=== PATIENT | female | born 1945 | race Caucasian/White ===

== ENCOUNTER 2025-04-04 21:16 | Inpatient (IN) | payer MEDICARE, SELFPAY ==
--- OUTSIDE RECORDS SUMMARY | 2023-12-06 04:45 | XMS_ITS ---
Author Organization [facility] Billing Info Address [address] [place] [id number] Care Team Providers Care Professional Organizer Name Role Phone Pa Yun Primary Care Provider UnavailMYA Jaime Unavailable [phone] JOVITA KIRK Unavailable Unavailable MARIUSZ MCMANUS Unavailable [phone] Allergies Allergen (clinical drug ingredient) Drug/Non Drug Allergy documented on EMR Reaction Allergy Type Onset Date Status soy (uncoded) Unknown Allergy Active aspirin Aspirin Unknown Drug Allergy Active ibuprofen Ibuprofen Unknown Drug Allergy Active acetaminophen Tylenol Unknown Drug Allergy Act luba REASON FOR VISIT H/P for hip injection Medications Medication SIG (Take, Route, Frequency, Duration) Notes Start Date End Date Status Trelegy Ellipta 100-62.5-25 MCG/INH 1 puff Inhalation As directed Active Vitamin D3 125 MCG (5000 UT) as directed Orally Active Albuterol Sulfate 4 MG TAKE 2 TABLETS BY MOUTH TWICE DAILY Oral for 10 Active Toy-24 300 MG TAKE 1 CAPSULE BY MO UTH EVERY DAY Oral for 30 Active Albuterol Sulfate HFA 108 (9 0 Base) MCG/ACT Inhalation for 25 Active Pantoprazole Sodium 40 MG TAKE 1 TABLET BY MOUTH EVERY DAY Oral for 90 Active Paroxetine HCl 30 MG TAKE 1 TABLET BY MO UTH EVERY DAY Oral for 90 Active Furosemide 40 MG TAKE 1 TABLET BY GAMA TH EVERY DAY Oral for 30 Active Metformin HCl 500 MG 1 tablet with a maciej l Oral Once a day for 90 days Active Prochlorperazine 10 MG 1 tablet as neede d Orally PRN 06/06/2022 Active Lisinopril 40 MG 1 tablet Oral Once a day for 90 days Active Atorvastatin Calcium 20 MG 1 tablet Oral ly Once a day Active Albuterol Sulfate (2.5 MG/3ML) 0.083% 3 mL as needed Inhalation every 6 hrs Active Fiber Therapy 500 MG 2 tablets with a fu ll glass of water as needed Orally Daily Active Trospium Chloride ER 60 MG 1 capsule in the morning on an empty stomach or 1 hour before a meal Orally Once a day Active Isosorbide Mononitrate ER 30 MG 1 tablet in the morning Orally Once a day for 90 day(s) 10/05/2022 Active Social History Tobacco Use: Social History Observation Description Date Details (start date - stop date) Former Smoker NA - NA Tobacco Status: Question Answer Notes Patient is a former smoker Vital Signs Height 65 in 12/06/2023 Weight 275.8 lbs 12/06/2023 BMI 45.89 kg/m2 12/06/2023 Encounters Encounter Location Date Provider Diagnosis [id number] [facility] [address] [place], [place] [id number] 12/06/2023 MARIUSZ MARIETTA Lumbar degenerative disc disease M51.36 and Arthritis of right hip M16.11 Assessments Encounter Date Diagnosis (ICD Code) Assessment Notes Treatment Notes Treatment Clinical Notes Section Notes 12/06/2023 Lumbar degenerative disc disease (ICD-10 - M51.36) I looked back at the patient's x-rays from November 15, 2023 in the office today of the hip and pelvis and it does capture the lower lumbar vertebrae and she has severe degenerative disc disease in the lower lumbar vertebrae. I believe she would benefit more from being treated with a low back injection. Apparently she was referred to a paint factory worker from her primary care physician but the patient did not maintain that appointment. I would advise her to see the paint factory worker for an injection and then we can talk if she is still having problems afterwards. 12/06/2023 Arthritis of right hip (ICD-10 - M16.11) Patient has arthritis in her right hip but I do not believe that that is the primary problem. Will see the low back specialist and then if she still has problems we can look at doing something for the hip Plan Of Treatment Treatment Notes Assessment Notes Lumbar degenerative disc disease I looke d back at the patient's x-rays from November 15, 2023 in the office today of the hip and pelvis and it does capture the lower lumbar vertebrae and she has severe degenerative disc disease in the lower lumbar vertebrae. I believe she would benefit more from being treated with a low back injection. Apparently she was referred to a paint factory worker from her primary care physician but the patient did not maintain that appointment. I would advise her to see the paint factory worker for an injection and then we can talk if she is still having problems afterwards. Arthritis of right hip Patient has arthr itis in her right hip but I do not believe that that is the primary problem. Will see the low back specialist and then if she still has problems we can look at doing something for the hip Next Appt Details Follow Up: prn, Reason: Progress Notes * LORRAINE HICKS LDOB:1945 ( 78 yo F)Acc No.[id number]:12/06/2023 PROGRESS NOTE Patient: LORRAINE KIRKLAND External Provider: Chelsey MCMANUS MD :1945 A ge:78 Y S ex:Female Date:12/06/2023 C #:[id number] Address:[address] [place], [place] [id number] Pcp:Pa Yun Subjective: * Chief Complaints: * H /P for hip injection * HPI: F irst Point of Contact Screening: Do any of the following apply to you? N ew rash or open sores N o F ever and/or chills in the past 7 days N o C ough N o M uscle or body aches (other than from an injury) N o S ore throat N o I n the past 3 weeks, have you or a close contact traveled outside the [facility] and you are now ill? N o p atsue is here for evaluation for possible hip injection in her right hip. She is having pain in her right flank area that radiates down her buttock all the way to her lower leg on the lateral side to her foot. She complains of numbness and tingling associated with this. She is in constant pain. * ROS: O RTHO: Constitutional: N egative for:, chills, fever, night sweats. C ardiovascular: N egative for:, chest pain, irregular heart rate, palpitations. R espiratory: N egative for:, cough, shortness of breath, wheezing. N eurologic: N egative for:, numbness, tingling. * Medical History: * Surgical History: C holecystectomy hysterectomy shoulder surgery - Left (spuurs) knee arthroscopy - Left (spurs) * Hospitalization/Major Diagno stic Procedure: N o Hospitalization History. * Family History: B rother(s): CROHNS, diagnosed with HTN, Heart Attack. M other: diagnosed with HTN, Lung CA. F ather: diagnosed with HTN, Colon CA. S ister(s): diagnosed with HTN, Lung CA, Heart Attack. * Social History: A lcohol Use Patient d oes not use alcohol T obacco Status Patient is a former smoker Quit in: 002 M arital Status: . * Medications: T akingIsosorbide Mononitrate ER 30 MG Tablet Extended Release 24 Hour 1 tablet in the morning Orally Once a day Albuterol Sulfate (2.5 MG/3ML) 0.083% Nebulization Solution 3 mL as needed Inhalation every 6 hrs Trospium Chloride ER 60 MG Capsule Extended Release 24 Hour 1 capsule in the morning on an empty stomach or 1 hour before a meal Orally Once a day Fiber Therapy 500 MG Tablet 2 tablets with a full glass of water as needed Orally Daily Atorvastatin Calcium 20 MG Tablet 1 tablet Orally Once a day Lisinopril 40 MG Tablet 1 tablet Oral Once a day Paroxetine HCl 30 MG Tablet TAKE 1 TABLET BY MOUTH EVERY DAY Oral Pantoprazole Sodium 40 MG Tablet Delayed Release TAKE 1 TABLET BY MOUTH EVERY DAY Oral Furosemide 40 MG Tablet TAKE 1 TABLET BY MOUTH EVERY DAY Oral Prochlorperazine 10 MG Tablet 1 tablet as needed Orally PRN Metformin HCl 500 MG Tablet 1 tablet with a meal Oral Once a day Toy-24 300 MG Capsule Extended Release 24 Hour TAKE 1 CAPSULE BY MOUTH EVERY DAY Oral Albuterol Sulfate 4 MG Tablet TAKE 2 TABLETS BY MOUTH TWICE DAILY Oral Albuterol Sulfate HFA 108 (90 Base) MCG/ACT Aerosol Solution Inhalation Trelegy Ellipta 100-62.5-25 MCG/INH Aerosol Powder Breath Activated 1 puff Inhalation As directed Vitamin D3 125 MCG (5000 UT) Capsule as directed Orally Medication List reviewed and reconciled with the patientTaking Isosorbide Mononitrate ER 30 MG Tablet Extended Release 24 Hour 1 tablet in the morning Orally Once a day Taking Albuterol Sulfate (2.5 MG/3ML) 0.083% Nebulization Solution 3 mL as needed Inhalation every 6 hrs Taking Trospium Chloride ER 60 MG Capsule Extended Release 24 Hour 1 capsule in the morning on an empty stomach or 1 hour before a meal Orally Once a day Taking Fiber Therapy 500 MG Tablet 2 tablets with a full glass of water as needed Orally Daily Taking Atorvastatin Calcium 20 MG Tablet 1 tablet Orally Once a day Taking Lisinopril 40 MG Tablet 1 tablet Oral Once a day Taking Paroxetine HCl 30 MG Tablet TAKE 1 TABLET BY MOUTH EVERY DAY Oral Taking Pantoprazole Sodium 40 MG Tablet Delayed Release TAKE 1 TABLET BY MOUTH EVERY DAY Oral Taking Furosemide 40 MG Tablet TAKE 1 TABLET BY MOUTH EVERY DAY Oral Taking Prochlorperazine 10 MG Tablet 1 tablet as needed Orally PRN Taking Metformin HCl 500 MG Tablet 1 tablet with a meal Oral Once a day Taking Toy-24 300 MG Capsule Extended Release 24 Hour TAKE 1 CAPSULE BY MOUTH EVERY DAY Oral Taking Albuterol Sulfate 4 MG Tablet TAKE 2 TABLETS BY MOUTH TWICE DAILY Oral Taking Albuterol Sulfate HFA 108 (90 Base) MCG/ACT Aerosol Solution Inhalation Taking Trelegy Ellipta 100-62.5-25 MCG/INH Aerosol Powder Breath Activated 1 puff Inhalation As directed Taking Vitamin D3 125 MCG (5000 UT) Capsule as directed Orally Medication List reviewed and reconciled with the patient * Allergies: A spirinIbuprofensoyTylenolno[Allergies Verified] Objective: * Vitals: H t: 65 in, Ht-cm: 165.1 cm, Wt: 275.8 lbs, Wt-k.1 kg, BMI:45.89, Weight Change: 0 lbs, Body Surface Area: 2.39. * Examination: G eneral Examination: General: No apparent distress, alert oriented x3 Right hip exam: Patient with equal leg lengths and no deformity. No malalignment. Patient with limited internal and external rotation to 10 degrees each but no pain in the groin with this maneuver. Moving the hip around recapitulate pain in the lateral side of her flank that radiates all the way down to her foot. Neurologically intact distally to light touch and motor with good capillary refill. Assessment: * Assessment: 1. L umbar degenerative disc disease - M51.36 (Primary) 2 . A rthritis of right hip - M16.11 Plan: * Treatment: 2. A rthritis of right hip Notes: Patient has arthritis in her right hip but I do not believe that that is the primary problem. Will see the low back specialist and then if she still has problems we can look at doing something for the hip * Procedure Codes: * Preventive Medicine: Quality Measures: F all Risk Assessment: Date of Screening Completed: 0 12/06/2023 Increased Fall Risk Factors: N o fall risk factors History Falls in Past Year: N o falls in the past year W eight Assessment Above Normal BMI Follow-Up L ifestyle education regarding diet * Follow Up: p rn * Care Plan Details* * Sign off status: Completed true * Provider: Chelsey MCMANUS MD Date: 0 12/06/2023 Generated for Janny redman/Yuri/Beka on: 06/05/2024 08:24 PM EST History and Physical Notes * HPI (History of Present Illness) Category Sub-Category Detail Notes Category Not es First Point of Contact Screening Do any of the following apply to you? New rash or open sores: No patient is here for evaluation for possible hip injection in her right hip. She is having pain in her right flank area that radiates down her buttock all the way to her lower leg on the lateral side to her foot. She complains of numbness and tingling associated with this. She is in constant pain. Fever and/or chills in the past 7 days: No Cough: No Muscle or body aches (other than from an injury): No Sore throat: No In the past 3 weeks, have yo u or a close contact traveled outside the [place] and you are now ill? : No Examination Category Sub-Category Detail Notes Category Not es General Examination General: No apparent distress, alert oriented x3 Right hip exam: Patient with equal leg lengths and no deformity. No malalignment. Patient with limited internal and external rotation to 10 degrees each but no pain in the groin with this maneuver. Moving the hip around recapitulate pain in the lateral side of her flank that radiates all the way down to her foot. Neurologically intact distally to light touch and motor with good capillary refill.
--- OUTSIDE RECORDS SUMMARY | 2024-02-14 05:15 | XMS_ITS ---
Author Organization [facility] Billing Info Address [address] [place] [address] Care Team Providers Care Camera Supervisor Name Role Phone Pa Yun Primary Care Provider UnavailMYA Jaime Unavailable [phone] JOVITA KIRK Unavailable Unavailable MARIUSZ MCMANUS Unavailable [phone] Allergies Allergen (clinical drug ingredient) Drug/Non Drug Allergy documented on EMR Reaction Allergy Type Onset Date Status soy (uncoded) Unknown Allergy Active aspirin Aspirin Unknown Drug Allergy Active ibuprofen Ibuprofen Unknown Drug Allergy Active acetaminophen Tylenol Unknown Drug Allergy Act luba REASON FOR VISIT Wants to discuss hip surgery Medications Medication SIG (Take, Route, Frequency, Duration) Notes Start Date End Date Status Trelegy Ellipta 100-62.5-25 MCG/INH 1 puff Inhalation As directed Active Vitamin D3 125 MCG (5000 UT) as directed Orally Active Albuterol Sulfate (2.5 MG/3ML) 0.083% 3 mL as needed Inhalation every 6 hrs Active Trospium Chloride ER 60 MG 1 capsule in the morning on an empty stomach or 1 hour before a meal Orally Once a day Active Isosorbide Mononitrate ER 30 MG 1 tablet in the morning Orally Once a day for 90 day(s) 10/05/2022 Active Albuterol Sulfate 4 MG TAKE 2 TABLETS BY MOUTH TWICE DAILY Oral for 10 Active Albuterol Sulfate HFA 108 (9 0 Base) MCG/ACT Inhalation for 25 Active Toy-24 300 MG TAKE 1 CAPSULE BY MO UTH EVERY DAY Oral for 30 Active Prochlorperazine 10 MG 1 tablet as neede d Orally PRN 06/06/2022 Active Metformin HCl 500 MG 1 tablet with a maciej l Oral Once a day for 90 days Active Lisinopril 40 MG 1 tablet Oral Once a day for 90 days Active Paroxetine HCl 30 MG TAKE 1 TABLET BY MO UTH EVERY DAY Oral for 90 Active Atorvastatin Calcium 20 MG 1 tablet Oral ly Once a day Active Pantoprazole Sodium 40 MG TAKE 1 TABLET BY MOUTH EVERY DAY Oral for 90 Active Furosemide 40 MG TAKE 1 TABLET BY GAMA TH EVERY DAY Oral for 30 Active Fiber Therapy 500 MG 2 tablets with a fu ll glass of water as needed Orally Daily Active Social History Tobacco Use: Social History Observation Description Date Details (start date - stop date) Former Smoker NA - NA Tobacco Status: Question Answer Notes Patient is a former smoker Vital Signs Height 65 in 02/14/2024 Weight 275.8 lbs 02/14/2024 BMI 45.89 kg/m2 02/14/2024 Encounters Encounter Location Date Provider Diagnosis [id number] [facility] [place] [address] [place] [address] [place], [place] [id number] 02/14/2024 MARIUSZ MCMANUS Bilateral hip joint arthritis M16.0 Assessments Encounter Date Diagnosis (ICD Code) Assessment Notes Treatment Notes Treatment Clinical Notes Section Notes 02/14/2024 Bilateral hip joint arthritis (ICD-10 - M16.0) I explained to the patient that I do not think that the majority of her symptoms are coming from her hips. She is also oxygen dependent as a COPD patient. If we were to do hip replacement surgery, she would be at a high risk having an issue with her lungs even if she was done under a spinal because she can not lay flat. If she had general anesthesia, she would likely get stuck on the vent. I do not think the wrist could be worth taking to see if the hip would make her much better because the provocative maneuvers on exam do not correlate with the hip being the primary problem. She has an appointment coming up at the end of the month to do an injection on the other side of her back and I think this is reasonable. If after having the injections she starts having more groin pain because of the distracting back problems and no longer problem , then we can talk about doing hip replacement surgery but right now it does not Look like hips are the primary problems. Plan Of Treatment Treatment Notes Assessment Notes Bilateral hip joint arthritis I explaine d to the patient that I do not think that the majority of her symptoms are coming from her hips. She is also oxygen dependent as a COPD patient. If we were to do hip replacement surgery, she would be at a high risk having an issue with her lungs even if she was done under a spinal because she can not lay flat. If she had general anesthesia, she would likely get stuck on the vent. I do not think the wrist could be worth taking to see if the hip would make her much better because the provocative maneuvers on exam do not correlate with the hip being the primary problem. She has an appointment coming up at the end of the month to do an injection on the other side of her back and I think this is reasonable. If after having the injections she starts having more groin pain because of the distracting back problems and no longer problem , then we can talk about doing hip replacement surgery but right now it does not Look like hips are the primary problems. Next Appt Details Follow Up: prn, Reason: Progress Notes * LORRAINE HICKS LDOB:1945 ( 78 yo F)Acc No.[id number]:02/14/2024 PROGRESS NOTE Patient: LORRAINE KIRKLAND External Provider: Chelsey MCMANUS MD :1945 A ge:78 Y S ex:Female Date:02/14/2024 c #:[id number] Address:[address] [place], [place] [id number] Pcp:Pa Yun Subjective: * Chief Complaints: * W ants to discuss hip surgery * HPI: F irst Point of Contact [...] or a close contact traveled outside the [facility] and you are now ill? N o p atient is hereto talk about hip replacement surgery.? She is seeing the pain management doctor for her lower back. She had an injection on the right side of her spine which has helped her right pain. She is having a lot of back pain on the left as well. She is not having groin pain as much but she is having some groin pain on the left. She is not having any thigh pain. * ROS: O RTHO: Constitutional: N [...] Area: 2.39. * Examination: G eneral Examination: general: No apparent distress, alert oriented x3 Bilateral hip exam: Patient with equal leg lengths. Patient with good range of motion in all planes. No pain with internal or external rotation of either hip. Negative Stinchfield testing bilaterally. No instability. Neurologically intact distally to light touch and motor with good capillary refill. Assessment: * Assessment: 1. B ilateral hip joint arthritis - M16.0 (Primary) Plan: * Treatment: * Procedure Codes: * Preventive Medicine: Quality Measures: F all Risk Assessment: Date of Screening Completed: 0 12/07/2023 Increased Fall Risk Factors: N o fall risk factors History Falls in Past Year: N o falls in the past year W eight Assessment Above Normal BMI Follow-Up L ifestyle education regarding diet * Follow Up: p rn * Care Plan Details* * Sign off status: Completed true * Provider: Chelsey MCMANUS MD Date: 0 02/14/2024 Generated for Janny redman/Yuri/Quintinsmitting on: 1 06/05/2024 08:24 PM EST History and Physical Notes * HPI (History of Present Illness) Category Sub-Category Detail Notes Category Not es First Point of Contact Screening Do any of the following apply to you? New rash or open sores: No patient is hereto talk about hip replacement surgery. She is seeing the pain management doctor for her lower back. She had an injection on the right side of her spine which has helped her right pain. She is having a lot of back pain on the left as well. She is not having groin pain as much but she is having some groin pain on the left. She is not having any thigh pain. Fever and/or chills in the past 7 days: No Cough: No Muscle or body aches (other than from an injury): No Sore throat: No In the past 3 weeks, have yo u or a close contact traveled outside the [place] and you are now ill? : No Examination Category Sub-Category Detail Notes Category Not es General Examination general: No apparent distress, alert oriented x3 Bilateral hip exam: Patient with equal leg lengths. Patient with good range of motion in all planes. No pain with internal or external rotation of either hip. Negative Stinchfield testing bilaterally. No instability. Neurologically intact distally to light touch and motor with good capillary refill
--- OUTSIDE RECORDS SUMMARY | 2024-02-27 04:30 | XMS_ITS ---
Author Organization [facility] Salome ferguson Billing Info Address [address] [place] [id number] Care Team Providers Care Auto Design Checker Name Role Phone Yun, [place] Primary Care Provider UnavailMYA Jaime Unavailable [phone] JOVITA KIRK Unavailable Unavailable TIN CORRAL Unavailable [phone] Allergies Allergen (clinical drug ingredient) Drug/Non Drug Allergy documented on EMR Reaction Allergy Type Onset Date Status soy (uncoded) Unknown Allergy Active aspirin Aspirin Unknown Drug Allergy Active ibuprofen Ibuprofen Unknown Drug Allergy Active acetaminophen Tylenol Unknown Drug Allergy Act luba Results Component Value Reference Range Notes NM- Gastric Emptying (57226) ([facility]) Reviewed date:03/27/2024 08:25:27 AM Interpretation: Performing Lab: Notes/Report: [facility] [address] [place] [address] Diagnostic Imaging Report Patient Name: LORRAINE HICKS Acct: [id number] : 1945 Age: 78 Sex: F MR#: [id number] Exam Date/Time: 03/25/24 Admit Date/Time: Patient Status: REG CLI Ordering Physician: Tin higgins DNP Patient Location: [facility] Attending Physician: Tin Corral DNP Accession Number(s): [id number] Exam(s): Nuclear Medicine NM Gastric Emptying CPT Code(s): 61197 CLINICAL INDICATION: Eructation, nausea and vomiting, diabetes mellitus. TECHNIQUE: Two eggs were radiolabeled with 1 mCi of Tc-99m sulfur colloid. After fasting overnight, the patient ingested a complete radiolabeled egg solid meal, consisting of two eggs, one slice toast with one pat margarine, and 120 mL water within 10 minutes. Serial images of the lower chest and upper abdomen were acquired in the anterior and posterior projections up to 180 minutes. Gastric residuals were calculated from geometric mean gastric region counts at each time point; the gastric emptying curve was generated from the geometric mean gastric region counts. After ingestion of a complete egg solid meal: Rapid gastric emptying defined as: 30% or less remaining in stomach at 60 minutes. Normal gastric emptying defined as: 10% or less remaining in stomach by 240 minutes. After ingestion of an incomplete egg solid meal: No standard values available to define rapid or normal gastric emptying; however, prolonged retention in stomach suggestive of delayed gastric emptying. COMPARISON: None. No correlative imaging. FINDINGS: Gastric Residuals (activity remaining in stomach): 60 minutes: 57% (for complete egg solid meal, 30% or less is abnormal; rapid gastric emptying) 120 minutes: 27% 180 minutes: 5% Hiatal Hernia: Not applicable. NM/NM Gastric Emptying IMPRESSION: Normal gastric emptying of specified complete egg solid meal. Patient Name: LORRAINE HICKS Acct: [id number] Unit: [id number] Page 1 CRITICAL RESULT: No. COMMUNICATION: Per this written report. Drafted by Luis Dumont MD on 03/25/2024 3:28 PM Final report signed by Luis Dumont MD on 03/25/2024 3:30 PM <Electronically signed by Delfina Dumont MD in OV>03/25/24 1530 Thank you for choosing [facility] Dictated By: Delfina Dumont MD Dictated Date/Time: 03/25/24 153 Transcribed By: Delfina Dumont MD Transcribed Date/Time: 03/25/241529 Technologist: Israel Santillan Copies To: Report ID: [id number] -End of Report- Patient Name: LORRAINE HICKS Acct: [id number] Unit: [id number] Page 2 [address] [place] [address] Diagnostic Imaging Report Patient Name: LORRAINE HICKS Acct: [id number] : 1945 Age: 78 Sex: F MR#: [id number] Exam Date/Time: 02/27 01/19 Admit Date/Time: Patient Status: REG CLI Ordering Physician: Tin higgins DNP Patient Location: [facility] Attending Physician: Tin Corral DNP Accession Number(s): [id number] Exam(s): Nuclear [facility] Gastric Emptying CPT Code(s): 84735 CLINICAL INDICATION: Eructation, nausea a nd vomiting, diabetes mellitus. TECHNIQUE: Two eggs were radiol abeled with 1 mCi of Tc-99m sulfur colloid. After fasting overnight, the patient ingested a c omplete radiolabeled egg solid meal, consisting of two eggs, one slice toast with one pat margari ne, and 120 mL water within 10 minutes. Serial images of the lower chest and upper abdomen were acquired in the anterior and posterior projections up to 180 minutes. Gastric residuals we re calculated from geometric mean gastric region counts at each time point; the gastric emptying cur ve was generated from the geometric mean gastric region counts. After ingestion of a complete egg solid meal: Rapid gastric emptyi ng defined as: 30% or less remaining in stomach at 60 minutes. Normal gastric empty ing defined as: 10% or less remaining in stomach by 240 minutes. After ingestion of a n incomplete egg solid meal: No standard values a vailable to define rapid or normal gastric emptying; however, prolonged retention in stomach suggestive of delayed gastric emptying. COMPARISON: None. No correlative imaging. FINDINGS: Gastric Residuals (a ctivity remaining in stomach): 60 minutes: 57% (for complete egg solid meal, 30% or less is abnormal; rapid gastric emptying) 120 minutes: 27% 180 minutes: 5% Hiatal Hernia: Not applicable. N M/NM Gastric Emptying IMPRESSION: Normal gastric empty ing of specified complete egg solid meal. Patient Name: LORRAINE HICKS Acct: [id number] Unit: [id number] Page 1 CRITICAL RESULT: No. COMMUNICATION: Per this written report. Drafted by Luis Dumont MD on 03/25/2024 3:28 PM Final report signed by Luis Dumont MD on 03/25/2024 3:30 PM <Electronically sign ed by Delfina Dumont MD in OV>03/25/24 1530 Thank you for marina cummins [facility] Dictated By: Delfina Dumont MD Dictated Date/Time: 03/25/241529 Transcribed By: Delfina Dumont MD Transcribed Date/Walter e: 03/25/241529 Technologist: Israel Santillan Copies To: Report ID: [id number] -End of Report- Patient Name: LORRAINE HICKS Acct: [id number] Unit: [id number] Page 2 REASON FOR VISIT EGD CONSULT/LT Medications Medication SIG (Take, Route, Frequency, Duration) Notes Start Date End Date Status Albuterol Sulfate HFA 108 (9 0 Base) MCG/ACT Inhalation for 25 Active Albuterol Sulfate 4 MG TAKE 2 TABLETS BY MOUTH TWICE DAILY Oral for 10 Active Trelegy Ellipta 100-62.5-25 MCG/INH 1 puff Inhalation As directed Active Toy-24 300 MG TAKE 1 CAPSULE BY MOUTH EVERY DAY Oral for 30 Active Tramadol HCl Active Furosemide 40 MG TAKE 1 TABLET BY GAMA TH EVERY DAY Oral for 30 Active Paroxetine HCl 30 MG TAKE 1 TABLET BY MO UTH EVERY DAY Oral for 90 Active Pantoprazole Sodium 40 MG TAKE 1 TABLET BY MOUTH EVERY DAY Oral Active Metformin HCl 500 MG 1 tablet with a maciej l Oral Once a day for 90 days Active Albuterol Sulfate (2.5 MG/3M L) 0.083% 3 mL as needed Inhalation every 6 hrs Active Lisinopril 40 MG 1 tablet Oral Once a day for 90 days Active Atorvastatin Calcium 20 MG 1 tablet Oral ly Once a day Active Fiber Therapy 500 MG 2 tablets with a fu ll glass of water as needed Orally Daily Active Budesonide 0.25 MG/2ML 2 mL Inhalation T wice a day Active Vitamin D3 125 MCG (5000 UT) as directed Orally Active Isosorbide Mononitrate ER 30 MG 1 tablet in the morning Orally Once a day for 90 day(s) 10/05/2022 Active Allopurinol Active Amlodipine Besylate 5 MG 1 tablet Orally Once a day Active Plavix 75 MG 1 tablet Orally Once a day Active Hydroxychloroquine Sulfate 2 00 MG as directed Orally Active Social History Tobacco Use: Social History Observation Description Date Details (start date - stop date) Former Smoker NA - NA Tobacco Status: Question Answer Notes Patient is a former smoker Vital Signs Height 65 in 02/27/2024 Weight 264 lbs 02/27/2024 BMI 43.93 kg/m2 02/27/2024 Blood pressure systolic 128 mm Hg 02/27/20 24 Blood pressure diastolic 72 mm Hg 024 Heart Rate 80 /min 02/27/2024 Oximetry 94 02/27/2024 Procedures Procedure Date Ordered Date Performed Result Body Sit e EGD(86872) 02/27/2024 04/12/2024 N/A Encounters Encounter Location Date Provider Diagnosis [id number] [facility] [address] [facility] [address] [place], [place] [id number] 02/27/2024 TIN CORRAL Eructation R14.2 ; Nausea and vomiting in adult R11.2 ; Esophageal dysphagia R13.19 ; Controlled type 2 diabetes mellitus with diabetic nephropathy, without long-term current use of insulin E11.21 ; Chronic GERD K21.9 ; History of adenomatous polyp of colon Z86.0101 and Family history of colon cancer in father Z80.0 Assessments Encounter Date Diagnosis (ICD Code) Assessment Notes Treatment Notes Treatment Clinical Notes Section Notes 02/27/2024 Eructation (ICD-10 - R14.2) 02/27/2024 Nausea and vomiting in adult (ICD-10 - R11.2) 02/27/2024 Esophageal dysphagia (ICD-10 - R13.19) 02/27/2024 Controlled type 2 diabetes mellitus with diabetic nephropathy, without long-term current use of insulin (ICD-10 - E11.21) 02/27/2024 Chronic GERD (ICD-10 - K21.9) 02/27/2024 History of adenomatous polyp of colon (ICD-10 - Z86.0101) Due for repeat colonoscopy 02/202502/27/2024 Family history of colon cancer in father (ICD-10 - Z80.0) 02/27/2024 Other EGD with possible dilatation has been ordered for further evaluation. Risks versus benefits were reviewed with the patient and questions have been answered. Gastric emptying study has also been ordered, given chronic complaints of excessive belching, nausea, vomiting and early satiety. Discussed that it is likely patient had some level of gastroparesis prior to being started on Ozempic due to her longstanding type 2 DM. Ozempic then exacerbated this under lying/undiagnosed condition, which caused severe side effects/worsening eructation, early satiety, nausea and vomiting . Will contact patient with results of gastric emptying study and any further recommendations. Will plan to follow up with the patient 2-3 weeks after completion of EGD to review results/pathology and to reassess. Patient is on Plavix. Will obtain cardiac clearance from her intermediate card tender Dr. Buck. Plan Of Treatment Medication Medication Name Sig Start Date Stop Date Notes Pantoprazole Sodium 40 MG TAKE 1 TABLET BY MOUTH EVERY DAY Oral Treatment Notes Assessment Notes History of adenomatous polyp of colon Du e for repeat colonoscopy 02/2025 Other EGD with possible dilatation has been ordered for further evaluation. Risks versus benefits were reviewed with the patient and questions have been answered. Gastric emptying study has also been ordered, given chronic complaints of excessive belching, nausea, vomiting and early satiety. Discussed that it is likely patient had some level of gastroparesis prior to being started on Ozempic due to her longstanding type 2 DM. Ozempic then exacerbated this under lying/undiagnosed condition, which caused severe side effects/worsening eructation, early satiety, nausea and vomiting . Will contact patient with results of gastric emptying study and any further recommendations. Will plan to follow up with the patient 2-3 weeks after completion of EGD to review results/pathology and to reassess. Patient is on Plavix. Will obtain cardiac clearance from her intermediate card tender Dr. Buck. 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 EGD CONSULT/LT. * HPI: H istory of Present Illness: Patient is a 78-year-old female who presents today for evaluation of excessive belching. Medical history includes asthma, arthritis, emphysema (On cont O2 swapna NC), type 2 diabetes, hypertension, diverticulosis, GERD. Surgical history includes cholecystectomy, hysterectomy, bladder surgery. Patient was last seen in our office on 06/06/2022 with similar complaints of belching. She also reported vomiting undigested food and foul taste in her mouth. H pylori stool testing was negative. Today, patient reports continued excessive belching with foul taste and smell. Occasionally it will cause her to vomit and emesis will contain undigested, foul-smelling food. Patient also reports intermittent difficulty swallowing, stating that occasionally food seems to stick in her throat which will cause excessive coughing. She also reports being placed on Ozempic by her PCP earlier this year, but she is not sure of the exact date. States she quit taking the Ozempic in early November due to GI upset, but then restarted it on her own at the end of November, only to have her symptoms worsen. She reports that after restarting the medication she had severe nausea and vomiting, where she was vomiting undigested food 3-4 times per day. This continued for a several weeks even after she stopped it in December. TODAY, patient reports that the nausea vomiting is gone. However, she still has excessive foul/sulfuric burps. She also reports longstanding history of early satiety, stating she will often feel full after taking only a few bites of food. She is currently taking pantoprazole 40 mg daily. It is working well to control her heartburn symptoms, but does not help her gastric reflux or belching. She denies abdominal pain, change in bowel habits, diarrhea, constipation, black/tarry stools. Admits that she often passes black/tarry stools. Patient is on Plavix and is followed by Gear Lapping Machine Operator Dr. Buck. Patient is . She denies current use of tobacco products, stating she quit smoking 40 years ago. She denies use of alcohol and illicit drugs. Family history includes father with colon cancer Negtive for celiac disease and ulcerative colitis. She does have a brother with Crohn's disease. Reviewed: 06/06/2022-office note 02/19229134-[id number]-[id number] diverticulosis, 3 4-6 mm polyps in the cecum, 2 5 mm polyps in the ascending colon, 110-15 mm polyp in the rectum. Internal hemorrhoids. All polyps removed were tubular adenomatous polyps, negative for high-grade dysplasia. 05/11/2020-EGD for iron-deficiency anemia. Small hiatal hernia, gastritis, normal duodenum. Duodenal biopsies unremarkable. Antral biopsies reactive gastropathy. 05/11/2020-colorectal cancer screening/family history of colon cancer in father. Sigmoid and distal descending colon diverticulosis. Six polyps in the ascending colon (3-10 mm in size). Poor prep in the left colon. Ascending colon polyps consistent with tubular adenomas. D o Not Use First Point of Contact Screening: Do you have any of the following symptoms? N ew symptoms over the past 7 days n one I n the past 3 weeks, have you traveled either within the [place] or internationally? N o I n the past 3 weeks, have you had close contact with someone who has traveled either within the [place] or internationally? N o * ROS: G eneral ROS: Constitutional: A dmits:,decreased appetite, Denies:, body aches, chills, fatigue, fever. R lisa/Pulmonology: A dmits: emphysema, continuous O2 Denies:, chest pain with breathing, cough, productive cough. C ardiology: D enies, chest pressure, chest pain with exertion. G astroenterology: A dmits:excessive belching, vomiting, early satiety, dysphagia, reflux , Denies:, abdominal pain,, blood in stool, constipation, diarrhea, constipation, vomiting blood. S ee HPI. * Medical History: D iabetes, Asthma, COPD (chronic obstructive pulmonary disease), Anemia, Chronic kidney disease, Arthritis, Emphysema, GERD (gastroesophageal reflux disease), Gastric ulcer, ME, Hyperlipidemia, Sleep apnea - uses cpap, Hypertension, Overweight. * Surgical History: C holecystectomy , hysterectomy , shoulder surgery - Left (spuurs) , knee arthroscopy - Left (spurs) . * Hospitalization/Major Diagno stic Procedure: F [facility]- COPD . * Family History: B lacey(s): CROHNS, diagnosed with HTN, Heart Attack. M other: diagnosed with Lung CA, HTN. F ather: diagnosed with Colon CA, HTN. S ister(s): diagnosed with Lung CA, HTN, Heart Attack. * Social History: A lcohol Use Patient d oes not use alcohol T obacco Status Patient is a former smoker Quit in: 2 002 M arital Status: . * Medications: T aking Tramadol HCl , Taking Hydroxychloroquine Sulfate 200 MG Tablet as directed Orally , Taking Plavix 75 MG Tablet 1 tablet Orally Once a day , Taking Budesonide 0.25 MG/2ML Suspension 2 mL Inhalation Twice a day , Taking Amlodipine Besylate 5 MG Tablet 1 tablet Orally Once a day , Taking Allopurinol , Taking Isosorbide Mononitrate ER 30 MG Tablet Extended Release 24 Hour 1 tablet in the morning Orally Once a day , Taking Albuterol Sulfate (2.5 MG/3ML) 0.083% Nebulization Solution 3 mL as needed Inhalation every 6 hrs , Taking Fiber Therapy 500 MG Tablet 2 tablets with a full glass of water as needed Orally Daily , Taking Atorvastatin Calcium 20 MG Tablet 1 tablet Orally Once a day , Taking Lisinopril 40 MG Tablet 1 tablet Oral Once a day , Taking Paroxetine HCl 30 MG Tablet TAKE 1 TABLET BY MOUTH EVERY DAY Oral , Taking Pantoprazole Sodium 40 MG Tablet Delayed Release TAKE 1 TABLET BY MOUTH EVERY DAY Oral , Taking Furosemide 40 MG Tablet TAKE 1 TABLET BY MOUTH EVERY DAY Oral , Taking Metformin HCl 500 MG Tablet 1 tablet with a meal Oral Once a day , Taking Toy-24 300 MG Capsule Extended Release 24 Hour TAKE 1 CAPSULE BY MOUTH EVERY DAY Oral , Taking Albuterol Sulfate 4 MG Tablet TAKE 2 TABLETS BY MOUTH TWICE DAILY Oral , Taking Albuterol Sulfate HFA 108 (90 Base) MCG/ACT Aerosol Solution Inhalation , Taking Trelegy Ellipta 100-62.5-25 MCG/INH Aerosol Powder Breath Activated 1 puff Inhalation As directed , Taking Vitamin D3 125 MCG (5000 UT) Capsule as directed Orally , Discontinued Trospium Chloride ER 60 MG Capsule Extended Release 24 Hour 1 capsule in the morning on an empty stomach or 1 hour before a meal Orally Once a day , Discontinued Prochlorperazine 10 MG Tablet 1 tablet as needed Orally PRN , Medication List reviewed and reconciled with the patient * Allergies: A spirin, Ibuprofen, soy, Tylenol. Objective: * Vitals: H t: 65 in, Ht-cm: 165.1 cm, Wt: 264 lbs, Wt-k.75 kg, BMI:43.93, Weight Change: -11.8 lbs, Body Surface Area: 2.34, BP:128/72, HR:80, Oxygen sat %:94. * Examination: G eneral Examination: Constitutional: a lert, NAD, pleasant, well developed and well nourished, cooperative, chronically ill appearing, needs assistance with ambulation- cane. Neck: s upple, no lymphadenopathy, no thyromegaly. Respiratory: c lear to auscultation bilaterally, no wheezes/rhonchi/rales. Heart: n o murmurs, regular rate and rhythm. Gastrointestinal: B S normoactive, epigastric tenderness, soft, no guarding or rigidity, no masses palpated. Psych: a lert, oriented x 3, appropriate mood and affect.? Assessment: * Assessment: 1. E ructation - R14.2 (Primary) 2 . N ausea and vomiting in adult - R11.2? 3. E sophageal dysphagia - R13.19 4 . 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 C hronic GERD - K21.9 6 . H istory of adenomatous polyp of colon - Z86.0101 7 . F amily history of colon cancer in father - Z80.0 ? Plan: * Treatment: 2. N ausea and vomiting in adult I maging: NM- Gastric Emptying (79142)([facility]) P rocedure: EGD(25406) 3. E sophageal dysphagia P rocedure: EGD(26148) 4. 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 C hronic GERD Continue Pantoprazole Sodium Tablet Delayed Release, 40 MG, TAKE 1 TABLET BY MOUTH EVERY DAY, Oral.? 6. H istory of adenomatous polyp of colon Notes: Due for repeat colonoscopy 02/2025 7. O thers Notes: EGD with possible dilatation has been ordered for further evaluation. Risks versus benefits were reviewed with the patient and questions have been answered. Gastric emptying study has also been ordered, given chronic complaints of excessive belching, nausea, vomiting and early satiety. Discussed that it is likely patient had some level of gastroparesis prior to being started on Ozempic due to her longstanding type 2 DM. Ozempic then exacerbated this under lying/undiagnosed condition, which caused severe side effects/worsening eructation, early satiety, nausea and vomiting . Will contact patient with results of gastric emptying study and any further recommendations. Will plan to follow up with the patient 2-3 weeks after completion of EGD to review results/pathology and to reassess. Patient is on Plavix. Will obtain cardiac clearance from her intermediate card tender Dr. Buck. * Preventive Medicine: Quality Measures: F all Risk Assessment: Date of Screening Completed: Increased Fall Risk Factors: N o fall risk factors History Falls in Past Year: N o falls in the past year W eight Assessment Above Normal BMI Follow-Up L ifestyle education regarding diet * Follow Up: 2 -3 weeks after EGD * Care Plan Details* * Sign off status: Completed true * Provider: Mary Kay CORRAL APRN Date: Generated for Janny redman/Yuri/Beka on: 06/05/2024 08:24 PM EST History and Physical Notes * HPI (History of Present Illness) Category Sub-Category Detail Notes Category Not es History of Present Illness Patient is a 78-year-old female who presents today for evaluation of excessive belching. Medical history includes asthma, arthritis, emphysema (On cont O2 swapna NC), type 2 diabetes, hypertension, diverticulosis, GERD. Surgical history includes cholecystectomy, hysterectomy, bladder surgery. Patient was last seen in our office on 06/06/2022 with similar complaints of belching. She also reported vomiting undigested food and foul taste in her mouth. H pylori stool testing was negative. Today, patient reports continued excessive belching with foul taste and smell. Occasionally it will cause her to vomit and emesis will contain undigested, foul-smelling food. Patient also reports intermittent difficulty swallowing, stating that occasionally food seems to stick in her throat which will cause excessive coughing. She also reports being placed on Ozempic by her PCP earlier this year, but she is not sure of the exact date. States she quit taking the Ozempic in early November due to GI upset, but then restarted it on her own at the end of November, only to have her symptoms worsen. She reports that after restarting the medication she had severe nausea and vomiting, where she was vomiting undigested food 3-4 times per day. This continued for a several weeks even after she stopped it in December. TODAY, patient reports that the nausea vomiting is gone. However, she still has excessive foul/sulfuric burps. She also reports longstanding history of early satiety, stating she will often feel full after taking only a few bites of food. She is currently taking pantoprazole 40 mg daily. It is working well to control her heartburn symptoms, but does not help her gastric reflux or belching. She denies abdominal pain, change in bowel habits, diarrhea, constipation, black/tarry stools. Admits that she often passes black/tarry stools. Patient is on Plavix and is followed by Gear Lapping Machine Operator Dr. Buck. Patient is . She denies current use of tobacco products, stating she quit smoking 40 years ago. She denies use of alcohol and illicit drugs. Family history includes father with colon cancer Negtive for celiac disease and ulcerative colitis. She does have a brother with Crohn's disease. Reviewed: 06/06/2022-office note 02/1922-colonoscopy -sigmoid diverticulosis, 3 4-6 mm polyps in the cecum, 2 5 mm polyps in the ascending colon, 110-15 mm polyp in the rectum. Internal hemorrhoids. All polyps removed were tubular adenomatous polyps, negative for high-grade dysplasia. 05/11/2020-EGD for iron-deficiency anemia. Small hiatal hernia, gastritis, normal duodenum. Duodenal biopsies unremarkable. Antral biopsies reactive gastropathy. 05/11/2020-colorect al cancer screening/family history of colon cancer in father. Sigmoid and distal descending colon diverticulosis. Six polyps in the ascending colon (3-10 mm in size). Poor prep in the left colon. Ascending colon polyps consistent with tubular adenomas. DO NOT USE First Point of Contact Screening Do you have any of the following symptoms? New symptoms over the past 7 days: none In the past 3 weeks, have yo u traveled either within the [place] or internationally? : No In the past 3 weeks, have yo u had close contact with someone who has traveled either within the [place] or internationally? : No Examination Category Sub-Category Detail Notes Category Not es General Examination Neck: supple, no l ymphadenopathy, no thyromegaly Heart: no murmurs, regular rate and rhythm Respiratory: clear to auscultatio n bilaterally, no wheezes/rhonchi/rales Gastrointestinal: BS normoactive, epig astric tenderness, soft, no guarding or rigidity, no masses palpated Constitutional: alert, NAD, pleasant , well developed and well nourished, cooperative, chronically ill appearing, needs assistance with ambulation- cane Psych: alert, oriented x 3, appropriate mood and affect
--- OUTSIDE RECORDS SUMMARY | 2024-02-27 05:39 | XMS_ITS ---
Author Organization [facility] Billing Info Address [address] [place] [address] Care Team Providers Care Electric Meter Technician Name Role Phone Pa Yun Primary Care Provider UnavailMYA Jaime Unavailable [phone] JOVITA KIRK Unavailable Unavailable TIN CORRAL Unavailable [phone] REASON FOR VISIT cc letter Encounters Encounter Location Date Provider Diagnosis [id number] [facility] [address] [place], [place] [id number] 02/27/2024 TIN CORRAL Plan Of Treatment No Information Progress Notes * LORRAINE HICKS LDOB:1945 ( 78 yo F)Acc No.[id number]:02/27/2024 Patient: Fabby LORRAINE W[place] :1945 A ge:78 Y S ex:Female Address:[address] [place] [phone] * true * Date: Generated for Janny redman/Fahayleyg/eTransmitting on: 06/05/2024 08:23 PM EST
--- OUTSIDE RECORDS SUMMARY | 2024-03-04 06:15 | XMS_ITS ---
Author Organization [facility] Address [address] [place] [address] Care Team Providers Care President [place] Name Role Phone Pa Yun Primary Care Provider [facility] [place], [id number] Unavailable [phone] REASON FOR VISIT Not Feeling Well Encounters Encounter Location Date Provider Diagnosis [facility] [address] [place] [address] 03/04/2024 [id number] Provider Plan Of Treatment No Information Progress Notes * Rmua VARGAS LDOB:1945 ( 79 yo F)Acc No.[id number]:03/04/2024 Patient: Fabby BAYRuma GONZALEZ Provider: 1 [id number] Provider :1945 A ge:78 Y S ex:Female Date:03/04/2024 External Visit ID:[id number] Address:[address] [place] [address] Pcp:Pa Yun Subjective: * Chief Complaints: * 1 . Not Feeling Well. * Medical History: Objective: * Vitals: Assessment: Plan: * Treatment: * Billing Information: * Visit Code: * Procedure Codes: Care Plan Details* * Electronic signature of [id number] Provider on 04/05/2025 at 07:24 PM HAND LACER Sign off status: Pending * Provider: 1 [id number] Provider Date: Generated for Janny redman/Yuri/Afsanehitting on: 06/05/2024 07:24 PM HAND LACER
--- OUTSIDE RECORDS SUMMARY | 2024-03-27 04:25 | XMS_ITS ---
Author Organization [facility] Billing Info Address [address] [place] [address] Care Team Providers Care Administrative Support Assoc Name Role Phone Yun Pa Primary Care Provider UnavailMYA Jaime Unavailable [phone] JOVITA KIRK Unavailable Unavailable TIN CORRAL Unavailable [phone] REASON FOR VISIT GES Result Encounters Encounter Location Date Provider Diagnosis [id number] [facility] [address] [place] [id number] 03/27/2024 TIN CORRAL Plan Of Treatment No Information Progress Notes * LORRAINE HICKS LDOB:1945 ( 78 yo F)Acc No.[id number]:03/27/2024 Patient: Fabby LORRAINE WASHINGTON :1945 A ge:78 Y S ex:Female Address:[address] [place] [phone] * true * Date: Generated for Chloéi ng/Fahayleyg/eTransmitting on: 06/05/2024 08:24 PM EST
--- OUTSIDE RECORDS SUMMARY | 2024-04-12 06:30 | XMS_ITS ---
Author Organization [facility] Billing Info Address [address] [place] [address] [place] [address] Care Team Providers Care Auto Body Man Name Role Phone Pa Yun Primary Care Provider UnavailMYA Jaime Unavailable [phone] JOVITA KIRK Unavailable Unavailable PETE HAGEN Unavailable [phone] REASON FOR VISIT ERUCTATION/N/V/DYS/LT Encounters Encounter Location Date Provider Diagnosis [id number] [address] [place], [place] [id number] 04/12/2024 PETE HAGEN Plan Of Treatment No Information Progress Notes * LORRAINE HICKS LDOB:1945 ( 79 yo F)Acc No.[id number]:04/12/2024 Patient: LORRAINE KIRKLAND External Provider: Lenny HAGEN MD :1945 A ge:78 Y S ex:Female Date:04/12/2024 C HN#:[id number] Address:[address] [place] [id number] Pcp:Pa Yun Subjective: * Chief Complaints: * 1 . ERUCTATION/N/V/DYS/LT. * Medical History: Objective: * Vitals: Assessment: Plan: * Treatment: * * This progress note has not b een verified nor is it considered complete until locked and signed by the provider. Sign off status: Pending * Provider: Lenny HAGEN MD Date: 06/12/2023 Generated for Janny redman/Yuri/Beka on: 06/05/2024 08:23 PM EST
--- OUTSIDE RECORDS SUMMARY | 2024-04-29 05:00 | XMS_ITS ---
Author Organization [facility] Billing Info Address [address] [place] [address] Care Team Providers Care Welt Edge Rounder Name Role Phone Pa Yun Primary Care Provider UnavailMYA Jaime Unavailable [phone] JOVITA KIRK Unavailable Unavailable TIN CORRAL Unavailable [phone] Allergies Allergen (clinical drug ingredient) Drug/Non Drug Allergy documented on EMR Reaction Allergy Type Onset Date Status soy (uncoded) Unknown Allergy Active aspirin Aspirin Unknown Drug Allergy Active ibuprofen Ibuprofen Unknown Drug Allergy Active acetaminophen Tylenol Unknown Drug Allergy Act luba REASON FOR VISIT EGD FU/LT Medications Medication SIG (Take, Route, Frequency, Duration) Notes Start Date End Date Status Pantoprazole Sodium 40 MG TAKE 1 TABLET BY MOUTH EVERY DAY Oral Active Albuterol Sulfate HFA 108 (9 0 Base) MCG/ACT Inhalation for 25 Active Trelegy Ellipta 100-62.5-25 MCG/INH 1 puff Inhalation As directed Active Vitamin D3 125 MCG (5000 UT) as directed Orally Active Furosemide 40 MG TAKE 1 TABLET BY GAMA TH EVERY DAY Oral for 30 Active Metformin HCl 500 MG 1 tablet with a maciej l Oral Once a day for 90 days Active Paroxetine HCl 30 MG TAKE 1 TABLET BY MO UTH EVERY DAY Oral for 90 Active Toy-24 300 MG TAKE 1 CAPSULE BY MOUTH EVERY DAY Oral for 30 Active Lisinopril 40 MG 1 tablet Oral Once a day for 90 days Active Albuterol Sulfate (2.5 MG/3M L) 0.083% 3 mL as needed Inhalation every 6 hrs Active Isosorbide Mononitrate ER 30 MG 1 tablet in the morning Orally Once a day for 90 day(s) 10/05/2022 Active Fiber Therapy 500 MG 2 tablets with a fu ll glass of water as needed Orally Daily Active Atorvastatin Calcium 20 MG 1 tablet Oral ly Once a day Active Allopurinol Active Tramadol HCl Active Hydroxychloroquine Sulfate 2 00 MG as directed Orally Active Amlodipine Besylate 5 MG 1 tablet Orally Once a day Active Plavix 75 MG 1 tablet Orally Once a day Active Budesonide 0.25 MG/2ML 2 mL Inhalation T wice a day Active Social History Tobacco Use: Social History Observation Description Date Details (start date - stop date) Former Smoker NA - NA Tobacco Status: Question Answer Notes Patient is a former smoker Vital Signs Height 65 in 04/29/2024 Weight 258 lbs 04/29/2024 BMI 42.93 kg/m2 04/29/2024 Blood pressure systolic 120 mm Hg 04/29/20 24 Blood pressure diastolic 62 mm Hg 024 Heart Rate 55 /min 04/29/2024 Oximetry 97 04/29/2024 Encounters Encounter Location Date Provider Diagnosis [id number] [facility] [address] [place], [place] [id number] 04/29/2024 TIN SHAYNA Chronic GERD K21.9 ; Eructation R14.2 ; Hiatal hernia K44.9 and History of adenomatous polyp of colon Z86.0101 Assessments Encounter Date Diagnosis (ICD Code) Assessment Notes Treatment Notes Treatment Clinical Notes Section Notes 04/29/2024 Chronic GERD (ICD-10 - K21.9) 04/29/2024 Eructation (ICD-10 - R14.2) Avoid drinking from straw and limit consumption of carbonated beverages. Eat slowly and chew food well. Do not eat late at night. Stop eating at least 2-3 hours before going to bed. Continuous oxygen use may also be contributing, but this should be continued as prescribed. May use GAS X before meals to reduce gas production 04/29/2024 Hiatal hernia (ICD-10 - K44.9) Recommend smaller, more frequent meals instead of fewer heavier meals. Limit consumption of foods that are irritating to the gut/ cause bloating and gas. Low FODMAP diet reviewed and handout given to patient 04/29/2024 History of adenomatous polyp of colon (ICD-10 - Z86.0101) Due for 3 year repeat ( prior 03/16/2022) colonoscopy 02/2025. Plan Of Treatment Medication Medication Name Sig Start Date Stop Date Notes Pantoprazole Sodium 40 MG TAKE 1 TABLET BY MOUTH EVERY DAY Oral Treatment Notes Assessment Notes Eructation Avoid drinking from straw and limit consumption of carbonated beverages. Eat slowly and chew food well. Do not eat late at night. Stop eating at least 2-3 hours before going to bed. Continuous oxygen use may also be contributing, but this should be continued as prescribed. May use GAS X before meals to reduce gas production Hiatal hernia Recommend smaller, more frequent meals instead of fewer heavier meals. Limit consumption of foods that are irritating to the gut/ cause bloating and gas. Low FODMAP diet reviewed and handout given to patient History of adenomatous polyp of colon Du e for 3 year repeat ( prior 03/16/2022) colonoscopy 02/2025. Next Appt Details Follow Up: 2-3 weeks after c olonoscopy/ PRN, Reason: Progress Notes * LORRAINE HICKS LDOB:1945 ( 78 yo F)Acc No.[id number]:04/29/2024 PROGRESS NOTE Patient: LORRAINE KIRKLAND External Provider: Mary Kay CORRAL APRN :1945 A ge:78 Y S ex:Female Date:04/29/2024 c #:[id number] Address:[address] [place], [place] [phone] Pcp:Pa Yun Check In:09:57 AM LOBSTER CATCHER Subjective: * Chief Complaints: * E GD FU/LT * HPI: H istory of Present Illness: Patient is a 78-year-old female who returns today for follow-up on excessive belching after completion of EGD for further evaluation of her symptoms. At previous visit on 02/27/2024 patient reported persistent gastric reflux and belching, despite use of pantoprazole 40 mg daily. She denied heartburn, nausea, vomiting. She also reported intermittent passage of black/tarry stools. She also recalled a l ongstanding history of early satiety, stating that she would often feel full after taking only few bites of food. She also experienced intermittent difficulty swallowing, described as occasional food that seemed to stick in her throat and cause excessive coughing. EGD was completed on 04/12/2024. Findings include regular Z-line, small hiatal hernia, mild Schatzki's ring at the GE junction (dilated with 54 Czech Manriquez dilator), normal stomach (biopsied), and a few localized erosions found in the 2nd portion of the duodenum (biopsied). Gastric biopsies confirmed reactive gastropathy, otherwise negative for H.pylori and atypia. Duodenal biopsies revealed small bowel mucosa with no significant pathologic abnormality. Workup also included gastric emptying study that was completed on 03/25/2024. Gastric emptying study was normal with gastric residuals at 60 minutes 57%, 120 minutes 27%, 180 minutes 5%. Today, patient reports that she is no longer having difficulty swallowing. She continues to take pantoprazole 40 mg daily which continues to work well for her heartburn symptoms. However, she does report continued gastric reflux and excessive belching. She denies any specific food triggers. She does wear continuous oxygen. States that she does consume soda on occasion and she does drink through a straw. She otherwise denies any other symptoms. She denies abdominal pain, nausea, vomiting, decreased appetite, change in bowel habits, constipation, diarrhea, and unintentional weight loss. She denies current use of tobacco products, stating she quit smoking about 40 years ago. She does not use alcohol or illicit drugs. Family history includes father with colon cancer and brother with Crohn's disease. She is on Plavix and is followed by business applications analyst Dr. Zendejas. From my office note dated 02/27/2024: Reviewed: 06/06/2022-office note 03/16/2201-poykvaqstwz-fcqlaed diverticulosis, three 4-6 mm polyps in the cecum, two 5 mm polyps in the ascending colon, and one 10-15 mm polyp in the rectum. Internal hemorrhoids. [...] o * ROS: G eneral ROS: Constitutional: D enies:, body aches, chills, fatigue, fever, decreased appetite, weight loss. R ilsa/Pulmonology: A dmits:,dyspnea on exertion,COPD, continuous O2 via NC, Denies:, chest pain with breathing, chest tightness, cough. C ardiology: D enies, chest pressure, chest pain with exertion, edema, dizziness. G astroenterology: A dmits:reflux, belching, Denies:, abdominal pain, blood in stool, burning in stomach, burning in throat, change in bowel habits, constipation, diarrhea, dysphagia, heartburn, nausea, vomiting, weight loss. ? * Medical History: * Surgical History: C holecystectomy hysterectomy shoulder surgery - Left (spuurs) knee arthroscopy - Left (spurs) * Hospitalization/Major Diagno stic Procedure: F [facility]- COPD * Family History: B rother(s): CROHNS, diagnosed [...] M arital Status: . * Medications: T akingPantoprazole Sodium 40 MG Tablet Delayed Release TAKE 1 TABLET BY MOUTH EVERY DAY Oral Tramadol HCl Hydroxychloroquine Sulfate 200 MG Tablet as directed Orally Plavix 75 MG Tablet 1 tablet Orally Once a day Budesonide 0.25 MG/2ML Suspension 2 mL Inhalation Twice a day Amlodipine Besylate 5 MG Tablet 1 tablet Orally Once a day Allopurinol Isosorbide Mononitrate ER 30 MG Tablet Extended Release 24 Hour 1 tablet in the morning Orally Once a day Albuterol Sulfate (2.5 MG/3ML) 0.083% Nebulization Solution 3 mL as needed Inhalation every 6 hrs Fiber Therapy 500 MG Tablet 2 tablets with a full glass of water as needed Orally Daily Atorvastatin Calcium 20 MG Tablet 1 tablet Orally Once a day Lisinopril 40 MG Tablet 1 tablet Oral Once a day Paroxetine HCl 30 MG Tablet TAKE 1 TABLET BY MOUTH EVERY DAY Oral Furosemide 40 MG Tablet TAKE 1 TABLET BY MOUTH EVERY DAY Oral Metformin HCl 500 MG Tablet 1 tablet with a meal Oral Once a day Toy-24 300 MG Capsule Extended Release 24 Hour TAKE 1 CAPSULE BY MOUTH EVERY DAY Oral Albuterol Sulfate HFA 108 (90 Base) MCG/ACT Aerosol Solution Inhalation Trelegy Ellipta 100-62.5-25 MCG/INH Aerosol Powder Breath Activated 1 puff Inhalation As directed Vitamin D3 125 MCG (5000 UT) Capsule as directed Orally Taking Pantoprazole Sodium 40 MG Tablet Delayed Release TAKE 1 TABLET BY MOUTH EVERY DAY Oral Taking Tramadol HCl Taking Hydroxychloroquine Sulfate 200 MG Tablet as directed Orally Taking Plavix 75 MG Tablet 1 tablet Orally Once a day Taking Budesonide 0.25 MG/2ML Suspension 2 mL Inhalation Twice a day Taking Amlodipine Besylate 5 MG Tablet 1 tablet Orally Once a day Taking Allopurinol Taking Isosorbide Mononitrate ER 30 MG Tablet Extended Release 24 Hour 1 tablet in the morning Orally Once a day Taking Albuterol Sulfate (2.5 MG/3ML) 0.083% Nebulization Solution 3 mL as needed Inhalation every 6 hrs Taking Fiber Therapy 500 MG Tablet 2 [...] TABLET BY MOUTH EVERY DAY Oral Taking Metformin HCl 500 MG Tablet 1 tablet with a meal Oral Once a day Taking Toy-24 300 MG Capsule Extended Release 24 Hour TAKE 1 CAPSULE BY MOUTH EVERY DAY Oral Taking Albuterol Sulfate HFA 108 (90 Base) MCG/ACT Aerosol Solution Inhalation Taking Trelegy Ellipta 100-62.5-25 MCG/INH Aerosol Powder Breath Activated 1 puff Inhalation As directed Taking Vitamin D3 125 MCG (5000 UT) Capsule as directed Orally DiscontinuedAlbuterol Sulfate 4 MG Tablet TAKE 2 TABLETS BY MOUTH TWICE DAILY Oral Medication List reviewed and reconciled with the patientDiscontinued Albuterol Sulfate 4 MG Tablet TAKE 2 TABLETS BY MOUTH TWICE DAILY Oral Medication List reviewed and reconciled with the patient * Allergies: A spirinIbuprofensoyTylenolno[Allergies Verified] Objective: * Vitals: H t: 65 in, Ht-cm: 165.1 cm, Wt: 258 lbs, Wt-k.03 kg, BMI:42.93, Weight Change: -6 lbs, Body Surface Area: 2.31, BP:120/62, HR:55, Oxygen sat %:97. * Examination: G eneral Examination: Constitutional: a lert, NAD, pleasant, well developed and well nourished, cooperative . Derm/Integumentary: n ormal, no rash, warm, dry, no lesions, rash. Neck: s upple, no lymphadenopathy. Respiratory: c lear to auscultation bilaterally, no wheezes/rhonchi/rales. Heart: n o murmurs, regular rate and rhythm. Gastrointestinal: B S normoactive, soft and not tender, no guarding or rigidity, no masses palpated. Psych: a lert, oriented x 3, appropriate mood and affect, insight and judgement normal. Assessment: * Assessment: 1. C hronic GERD - K21.9 (Primary) 2 . E ructation - R14.2 3 . H iatal hernia - K44.9 4 . H istory of adenomatous polyp of colon - Z86.0101 Plan: * Treatment: 2. E ructation Notes: Avoid drinking from straw and limit consumption of carbonated beverages. Eat slowly and chew food well. Do not eat late at night. Stop eating at least 2-3 hours before going to bed. Continuous oxygen use may also be contributing, but this should be continued as prescribed. May use GAS X before meals to reduce gas production 3. H iatal hernia Notes: Recommend smaller, more frequent meals instead of fewer heavier meals. Limit consumption of foods that are irritating to the gut/ cause bloating and gas. Low FODMAP diet reviewed and handout given to patient 4. H istory of adenomatous polyp of colon P rocedure: COLONOSCOPY, SCREENING ([id number]) Notes: Due for 3 year repeat ( prior 03/16/2022) colonoscopy 02/2025. * Procedure Codes: * Preventive Medicine: Quality Measures: F all Risk Assessment: Date of Screening Completed: 06/30/2023 Increased Fall Risk Factors: N o fall risk factors History Falls in Past Year: N o falls in the past year W eight Assessment Above Normal BMI Follow-Up L ifestyle education regarding diet * Follow Up: 2 -3 weeks after colonoscopy/ PRN * Care Plan Details* * TER CATCHER Sign off status: Completed true * Provider: Mary Kay CORRAL APRN Date: 06/30/2023 Generated for Janny redman/Yuri/Afsanehitting on: 06/05/2024 08:23 PM EST History and Physical Notes * HPI (History of Present Illness) Category Sub-Category Detail Notes Category Not es History of Present Illness Patient is a 78-year-old female who returns today for follow-up on excessive belching after completion of EGD for further evaluation of her symptoms. At previous visit on 02/27/2024 patient reported persistent gastric reflux and belching, despite use of pantoprazole 40 mg daily. She denied heartburn, nausea, vomiting. She also reported intermittent passage of black/tarry stools. She also recalled a longstanding history of early satiety, stating that she would often feel full after taking only few bites of food. She also experienced intermittent difficulty swallowing, described as occasional food that seemed to stick in her throat and cause excessive coughing. EGD was completed on 04/12/2024. Findings include regular Z-line, small hiatal hernia, mild Schatzki's ring at the GE junction (dilated with 54 Czech Manriquez dilator), normal stomach (biopsied), and a few localized erosions found in the 2nd portion of the duodenum (biopsied). Gastric biopsies confirmed reactive gastropathy, otherwise negative for H.pylori and atypia. Duodenal biopsies revealed small bowel mucosa with no significant pathologic abnormality. Workup also included gastric emptying study that was completed on 03/25/2024. Gastric emptying study was normal with gastric residuals at 60 minutes 57%, 120 minutes 27%, 180 minutes 5%. Today, patient reports that she is no longer having difficulty swallowing. She continues to take pantoprazole 40 mg daily which continues to work well for her heartburn symptoms. However, she does report continued gastric reflux and excessive belching. She denies any specific food triggers. She does wear continuous oxygen. States that she does consume soda on occasion and she does drink through a straw. She otherwise denies any other symptoms. She denies abdominal pain, nausea, vomiting, decreased appetite, change in bowel habits, constipation, diarrhea, and unintentional weight loss. She denies current use of tobacco products, stating she quit smoking about 40 years ago. She does not use alcohol or illicit drugs. Family history includes father with colon cancer and brother with Crohn's disease. She is on Plavix and is followed by business applications analyst Dr. Zendejas. From my office note dated 02/27/2024: Reviewed: 06/06/2022-office note 03/16/22-colonoscopy -sigmoid diverticulosis, three 4-6 mm polyps in the cecum, two 5 mm polyps in the ascending colon, and one 10-15 mm polyp in the rectum. Internal hemorrhoids. All polyps removed were tubular adenomatous polyps, negative for high-grade dysplasia. 05/11/2020-EGD for iron-deficiency anemia. Small hiatal hernia, gastritis, normal duodenum. Duodenal biopsies unremarkable. Antral biopsies reactive gastropathy. 05/11/2020-colorecta l cancer screening/family history of colon cancer in [...] Not es General Examination Neck: supple, no lymphadeno mara Heart: no murmurs, regular rate and rhythm Respiratory: clear to auscultatio n bilaterally, no wheezes/rhonchi/rales Gastrointestinal: BS normoactive, soft and not tender, no guarding or rigidity, no masses palpated Constitutional: alert, NAD, pleasant , well developed and well nourished, cooperative Derm/Integumentary: normal, no rash, war m, dry, no lesions, rash Psych: alert, oriented x 3, appropriate mood and affect, insight and judgement normal
--- OUTSIDE RECORDS SUMMARY | 2024-04-29 05:50 | XMS_ITS ---
Author Organization [facility] Billing Info Address [address] [place] [address] Care Team Providers Care Geophysical Computer Name Role Phone Pa Yun Primary Care Provider UnavailMYA Jaime Unavailable [phone] JOVITA KIRK Unavailable Unavailable TIN CORRAL Unavailable [phone] REASON FOR VISIT CC LETTER Encounters Encounter Location Date Provider Diagnosis [id number] [facility] [address] [place] [id number] 04/29/2024 TIN CORRAL Plan Of Treatment No Information Progress Notes * LORRAINE HICKS LDOB:1945 ( 78 yo F)Acc No.[id number]:04/29/2024 Patient: Fabby LORRAINE WASHINGTON :1945 A ge:78 Y S ex:Female Address:[address] [place] [phone] * true * Date: Generated for Janny redman/Fahayleyg/eTransmitting on: 06/05/2024 08:23 PM EST
--- OUTSIDE RECORDS SUMMARY | 2025-02-28 05:30 | XMS_ITS ---
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 Name Role Phone Pa Yun Primary Care Provider Unavailchad e MYA ESPARZA Unavailable [phone] JOVITA KIRK Unavailable Unavailable Allergies Allergen (clinical drug ingredient) Drug/Non Drug Allergy documented on EMR Reaction Allergy Type Onset Date Status soy (uncoded) Unknown Allergy Active aspirin Aspirin Unknown Drug Allergy Active ibuprofen Ibuprofen Unknown Drug Allergy Active REASON FOR VISIT Breast Consult/Council/[employer] MC/D - N/HT Medications Medication SIG (Take, Route, Frequency, Duration) Notes Start Date End Date Status Albuterol Sulfate (2.5 MG/3ML) 0.083% 3 mL as needed Inhalation every 6 hrs Active Albuterol Sulfate HFA 108 (90 Base) MCG/ACT Inhalation for 25 Activ e Plavix 75 MG 1 tablet Orally Once a day Active Toy-24 300 MG TAKE 1 CAPSULE BY [facility] EVERY DAY Oral for 30 Active Tramadol HCl Active Isosorbide Mononitrate ER 30 MG 1 tablet in the morning Orally Once a day for 90 day(s) 10/05/2022 Active Lisinopril 40 MG 1 tablet Oral Once a day for 90 days Active Metformin HCl 500 MG 1 tablet with a maciej l Oral Once a day for 90 days Active Pantoprazole Sodium 40 MG TAKE 1 TABLET BY MOUTH EVERY DAY Oral Active Paroxetine HCl 30 MG TAKE 1 TABLET BY MO UT EVERY DAY Oral for 90 Active Amlodipine Besylate 5 MG 1 tablet Orally Once a day Active Atorvastatin Calcium 20 MG 1 tablet Oral ly Once a day Active Budesonide 0.25 MG/2ML 2 mL Inhalation T wice a day Active Furosemide 40 MG TAKE 1 TABLET BY GAMA TH EVERY DAY Oral for 30 Active Social History Tobacco Use: Social History Observation Description Date Details (start date - stop date) Former Smoker NA - NA Tobacco Status: Question Answer Notes Patient is a former smoker Problems Problem Type SNOMED Code ICD Code Onset Dates Problem Status W/U Status Risk Notes Problem 134587362 Anemia (D64.9) Active confirmed Problem Chronic kidney disease (892922400) Chronic kidney disease (N18.9) Active confirmed Problem 6427214 Arthritis (M19.90) Active confirmed Problem Emphysema (80415675) Emphysema (J43.9) Active confirmed Problem 476744609 GERD (gastroesophagea l reflux disease) (K21.9) Active confirmed Problem Gastric ulcer (934324021) Gastric ulcer (K25.9) Active confirmed Problem 60480477 Type 2 diabetes mellitus without complications, 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) Active confirmed Vital Signs Height 65 in 02/28/2025 Weight 265 lbs 02/28/2025 BMI 44.09 kg/m2 02/28/2025 Blood pressure systolic 126 mm Hg 02/29/20 25 Blood pressure diastolic 80 mm Hg 025 Encounters Encounter Location Date Provider Diagnosis [id number] [facility] [address] [facility] [place] [address] 02/28/2025 MYA VILMA 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 Atypical hyperplasia in setting of CSL/radial scar carries as high as 35% risk of associated invasive carcinoma and also increases her risk of developing breast cancer. My recommnedation is for excision of these three areas. The radiologist noted a fourth area (left breast) that may also need to be removed. The plan is needle localized excision of right breast lesion x 1, and left breast lesions (2 versus 3). Risks described to include bleeding, infection, recurrence, malignancy requirng further procedures as well as risks of anesthesia including respiratory issues, DVT, PE, NC, stroke/. She agrees to proceed. off plavix 5 days prior to procedure. Plan Of Treatment Treatment Notes Assessment Notes Other I discussed the pathology results in detail with her today and her daughter. Atypical hyperplasia in setting of CSL/radial scar carries as high as 35% risk of associated invasive carcinoma and also increases her risk of developing breast cancer. My recommnedation is for excision of these three areas. The radiologist noted a fourth area (left breast) that may also need to be removed. The plan is needle localized excision of right breast lesion x 1, and left breast lesions (2 versus 3). Risks described to include bleeding, infection, recurrence, malignancy requirng further procedures as well as risks of anesthesia including respiratory issues, DVT, PE, NC, stroke/. She agrees to proceed. Next Appt Details Follow Up: 1 Week, Reason: Progress Notes * LORRAINE HICKS LDOB:1945 ( 79 yo F)Acc No.[id number]:02/28/2025 CONSULT NOTE Patient: LORRAINE KIRKLAND External Provider: Leroy ESPARZA MD :1945 A ge:79 Y S ex:Female Date:02/28/2025 c #:[id number] Address:[address] [place], [place] [id number] Pcp:Pa Yun Check In:10:40 AM RETANNER Subjective: * Chief Complaints: * B reast Consult/Council/[employer] MC/D - N/HT * HPI: P atient History: 79yo female presents for discussions of surgical excision of multiple abnormal findings in bilateral breasts on imaging s/p bilateral breast biopsies. She has no personal hx of breast cancer. she has had a benign cyst removed from her left breast in the past. her hx is sign for breast cancer in her Mother and Sister. She is on plavix for cardiac hx but no indwelling stents. most recent heart cath was earlier this year showed mild single vessel stenosis. she has a smoking hx and is on chronic oxygen therapy. Her mammogram showed multiple abnormalities bilaterally to include Finding 1: 58mm asymetry RUOQ, 7cm from nipple, CAT 4, STBB recc. Finding 2: 43mm asymmetry LUOQ, 11cm from nipple, CAT 4 STBB recc. Finding 3: 24mm lesion immediately inferior to pevious, LUOQ, CAT 4. Finding 4: 45m asymmetry superior left breat 4-7cm from nippple, CAT 4, STBB recc. She went to [facility] and had 3 biopsies performed: PATH: Right breast #1: Focal atypical lobular hyperplasia with complex sclerosing lesion/radial scar. Left breast #1: Complex sclerosing lesion/radial scar. Left breast #2: Focal atypical lobular hyperplasia with complex sclerosing lesion/radial scar. * ROS: T en body systems reviewed and negative except for those noted in HPI. Please see HPI above for pertinent ROS, otherwise all pertinent systems are negative and a copy scanned in patient's chart. * Medical History: * Surgical History: C holecystectomy hysterectomy-total shoulder surgery - Left (spuurs) knee arthroscopy - Left (spurs) * Hospitalization/Major Diagno stic Procedure: F [facility]- COPD * Family History: M other: , diagnosed with Lung CA, Breast CA, HTN. F ather: , prostate cancer, diagnosed with Colon CA, HTN. S ister(s): unknown, diagnosed with Lung CA, Breast CA, HTN, Heart Attack. B rother(s): CROHNS, diagnosed with HTN, Heart Attack. * Social History: A lcohol Use Patient d oes not use alcohol T obacco Status Patient is a former smoker Quit in: 2 002 M arital Status: . * Medications: T akingAlbuterol Sulfate (2.5 MG/3ML) 0.083% Nebulization Solution 3 mL as needed Inhalation every 6 hrs Albuterol Sulfate HFA 108 (90 Base) MCG/ACT Aerosol Solution Inhalation Amlodipine Besylate 5 MG Tablet 1 tablet Orally Once a day Atorvastatin Calcium 20 MG Tablet 1 tablet Orally Once a day Budesonide 0.25 MG/2ML Suspension 2 mL Inhalation Twice a day Furosemide 40 MG Tablet TAKE 1 TABLET BY MOUTH EVERY DAY Oral Isosorbide Mononitrate ER 30 MG Tablet Extended Release 24 Hour 1 tablet in the morning Orally Once a day Lisinopril 40 MG Tablet 1 tablet Oral Once a day Metformin HCl 500 MG Tablet 1 tablet with a meal Oral Once a day Pantoprazole Sodium 40 MG Tablet Delayed Release TAKE 1 TABLET BY MOUTH EVERY DAY Oral Paroxetine HCl 30 MG Tablet TAKE 1 TABLET BY MOUTH EVERY DAY Oral Plavix 75 MG Tablet 1 tablet Orally Once a day Toy-24 300 MG Capsule Extended Release 24 Hour TAKE 1 CAPSULE BY MOUTH EVERY DAY Oral Tramadol HCl Medication List reviewed and reconciled with the patientTaking Albuterol Sulfate (2.5 MG/3ML) 0.083% Nebulization Solution 3 mL as needed Inhalation every 6 hrs Taking Albuterol Sulfate HFA 108 (90 Base) MCG/ACT Aerosol Solution Inhalation Taking Amlodipine Besylate 5 MG Tablet 1 tablet Orally Once a day Taking Atorvastatin Calcium 20 MG Tablet 1 tablet Orally Once a day Taking Budesonide 0.25 MG/2ML Suspension 2 mL Inhalation Twice a day Taking Furosemide 40 MG Tablet TAKE 1 TABLET BY MOUTH EVERY DAY Oral Taking Isosorbide Mononitrate ER 30 MG Tablet Extended Release 24 Hour 1 tablet in the morning Orally Once a day Taking Lisinopril 40 MG Tablet 1 tablet Oral Once a day Taking Metformin HCl 500 MG Tablet 1 tablet with a meal Oral Once a day Taking Pantoprazole Sodium 40 MG Tablet Delayed Release TAKE 1 TABLET BY MOUTH EVERY DAY Oral Taking Paroxetine HCl 30 MG Tablet TAKE 1 TABLET BY MOUTH EVERY DAY Oral Taking Plavix 75 MG Tablet 1 tablet Orally Once a day Taking Toy-24 300 MG Capsule Extended Release 24 Hour TAKE 1 CAPSULE BY MOUTH EVERY DAY Oral Taking Tramadol HCl Medication List reviewed and reconciled with the patient * Allergies: A spirinIbuprofensoyno[Allergies Verified] Objective: * Vitals: H t: 65 in, Ht-cm: 165.1 cm, Wt: 265 lbs, Wt-k.2 kg, BMI:44.09, Weight Change: 7 lbs, Body Surface Area: 2.35, BP:126/80. * Examination: G eneral Examination: Constitutional: w ell nourished, in no acute distress. Derm/Integumentary: n o subcutaneous nodules or masses, good skin turgor without jaundice. HEENT: e ars and nose atraumatic without lesions, hearing intact, mucosal membranes moist. Neck: s upple with no JVD and trachea midline, no thyromegaly or cervical LAD. Respiratory: c lear to auscultation bilaterally with bilateral equal chest rise. Heart: r egular rate and rhythm, no murmurs, rubs, or gallops. Gastrointestinal: s oft, non-tender, non-distended without masses or hepatosplenomegaly noted. Musculoskeletal: 5 /5 motor bilateral upper and lower extremities without clubbing, cyanosis, or edema noted. Neurology: a lert and oriented x 3 with cranial nerves II through X grossly intact. Breasts: n o palpable masses bilaterally,nipples unremarkable,no nipple retraction,no skin changes,no axillary adenopathy bilaterally. Assessment: * Assessment: 1. 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 * Procedure Codes: * Preventive Medicine: Quality Measures: F all Risk Assessment: Date of Screening Completed: 1 Increased Fall Risk Factors: D ifficulty ambulating (walks with cane or walker) History Falls in Past Year: N o falls in the past year P neumococcal Vaccination - Patients 66 or older: Patient's D ocumentation of medical reason(s) for not administering or previously receiving pneumococcal vaccination I nfluenza Immunization Patient's I mmunization ordered or recommended (to be given at alternate location or alternate provider); vaccine not available at time of visit B reast cancer screening: Patient's S creening mammography results documented and reviewed Mammography Performed 0 10/04/2024 C olorectal Cancer Screening: Patient's C olorectal cancer screening results documented and reviewed Colonoscopy 1 07/12/2019 H igh Blood Pressure screening and follow up: Intervention Order Y es Weight Reduction Recommended W eight control education (procedure) Patient's P re-hypertensive or Hypertensive blood pressure reading documented, indicated follow-up documented W eight Assessment Above Normal BMI Follow-Up L ifestyle education regarding diet Referral: R eferred by another GP * Follow Up: 1 Week * Care Plan Details* * Sign off status: Completed Addendum: * true * Provider: Leroy ESPARZA MD Date: 1 Generated for Janny redman/Yuri/Afsanehitting on: 1 06/05/2024 08:23 PM EST History and Physical Notes * HPI (History of Present Illness) Category Sub-Category Detail Notes Category Not es Patient History 79yo female presents for discussions of surgical excision of multiple abnormal findings in bilateral breasts on imaging s/p bilateral breast biopsies. She has no personal hx of breast cancer. she has had a benign cyst removed from her left breast in the past. her hx is sign for breast cancer in her Mother and Sister. She is on plavix for cardiac hx but no indwelling stents. most recent heart cath was earlier this year showed mild single vessel stenosis. she has a smoking hx and is on chronic oxygen therapy. Her mammogram showed multiple abnormalities bilaterally to include Finding 1: 58mm asymetry RUOQ, 7cm from nipple, CAT 4, STBB recc. Finding 2: 43mm asymmetry LUOQ, 11cm from nipple, CAT 4 STBB recc. Finding 3: 24mm lesion immediately inferior to pevious, LUOQ, CAT 4. Finding 4: 45m asymmetry superior left breat 4-7cm from nippple, CAT 4, STBB recc. She went to [facility] and had 3 biopsies performed: PATH: Right breast #1: Focal atypical lobular hyperplasia with complex sclerosing lesion/radial scar. Left breast #1: Complex sclerosing lesion/radial scar. Left breast #2: Focal atypical lobular hyperplasia with complex sclerosing lesion/radial scar. Examination Category Sub-Category Detail Notes Category Not es General Examination HEENT: ears and nos e atraumatic without lesions, hearing intact, mucosal membranes moist Neck: supple with no JVD a nd trachea midline, no thyromegaly or cervical LAD Heart: regular rate and rhy thm, no murmurs, rubs, or gallops Respiratory: clear to auscultatio n bilaterally with bilateral equal chest rise Gastrointestinal: soft, non-tender, no n-distended without masses or hepatosplenomegaly noted Constitutional: well nourished, in n o acute distress Derm/Integumentary: no subcutaneous nodu les or masses, good skin turgor without jaundice Neurology: alert and oriented x 3 with cranial nerves II through X grossly intact Breasts: no palpable masses b ilaterally, nipples unremarkable, no nipple retraction, no skin changes, no axillary adenopathy bilaterally Musculoskeletal: 5/5 motor bilateral upper and lower extremities without clubbing, cyanosis, or edema noted
--- OUTSIDE RECORDS SUMMARY | 2025-03-19 02:00 | XMS_ITS ---
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 [address] [place], [place] [id number] 03/19/2025 PETE HAGEN Plan Of Treatment No Information Progress Notes * LORRAINE HICKS LDOB:1945 ( 79 yo F)Acc No.[id number]:03/19/2025 Patient: LORRAINE KIRKLAND External Provider: Lenny HAGEN MD :1945 A ge:79 Y S ex:Female Date:03/19/2025 C HN#:[id number] Address:[address] [place], [place] [id number] Pcp:Pa Yun Subjective: * Chief Complaints: * 1 . TA POLYPS/LT. * Medical History: Objective: * Vitals: Assessment: Plan: * Treatment: * * This progress note has not b een verified nor is it considered complete until locked and signed by the provider. Sign off status: Pending * Provider: Lenny HAGEN MD Date: 1 Generated for Janny redman/Yuri/Beka on: 1 06/05/2024 08:23 PM EST
[2025-04-04 21:18] VITALS: BP 151/65; PULSE 98; RESP 21; TEMP 37.8; O2SAT 98; BMI 43.2
--- NOTE | 2025-04-04 21:19 | CT_ITS ---
PROCEDURE INFORMATION: Exam: CT Head Without Contrast Exam date and time: 04/04/2025 10:28 PM Age: 79 years old Clinical indication: Altered mental status/memory loss; Confusion or disorientation; Additional info: AMS TECHNIQUE: Imaging protocol: Computed tomography of the head without contrast. Radiation optimization: All CT scans at this facility use at least one of these dose optimization techniques: automated exposure control; mA and/or kV adjustment per patient size (includes targeted exams where dose is matched to clinical indication); or iterative reconstruction. COMPARISON: No relevant prior studies available. FINDINGS: Brain: No intracranial hemorrhage. Mild atrophic changes of the ventricles and subarachnoid spaces. Mild chronic small-vessel ischemic changes noted. No mass, mass effect or midline shift. Intracranial atherosclerotic changes are noted. Cerebral ventricles: See Brain finding. Paranasal sinuses: Visualized sinuses are unremarkable. No fluid levels. Mastoid air cells: Visualized mastoid air cells are well aerated. Orbital cavities: Incidental bilateral rhkdlimr-vy-kymkee proptosis. No retro bulb are mass identified. Bones: Unremarkable. No acute fracture. Soft tissues: Unremarkable. IMPRESSION: 1. Incidental tdcrnehx-co-cyzyqn bilateral proptosis of uncertain etiology. Advise clinical assessment and follow-up. Consider MRI if clinically indicated. 2. No acute intracranial abnormality. Chronic changes as above.
--- NOTE | 2025-04-04 21:19 | XR_ITS ---
PROCEDURE INFORMATION: Exam: XR Chest Exam date and time: 04/04/2025 9:52 PM Age: 79 years old Clinical indication: Shortness of breath TECHNIQUE: Imaging protocol: Radiologic exam of the chest. Views: 1 view. COMPARISON: CR XR CHEST PORTABLE 04/04/2025 9:52 PM FINDINGS: Lungs: Unremarkable. No consolidation. Pleural spaces: Unremarkable. No pleural effusion. No pneumothorax. Heart/Mediastinum: Unremarkable. No cardiomegaly. Bones/joints: Moderate degenerative changes of the spine and shoulders. No acute osseous abnormality. IMPRESSION: No acute disease
--- NOTE | 2025-04-04 21:24 | PC.NURSE ---
Put pt on 10L non rebreather
[2025-04-04 21:27] VITALS: BP 151/65; PULSE 98; RESP 21; TEMP 37.8; O2SAT 98
[2025-04-04 21:28] VITALS: O2SAT 98
--- NOTE | 2025-04-04 21:29 | ECG_ITS ---
APPROVED REPORT Exam: Resting ECG HR:67 bpm ECG Measurements Heart Rate 67 AXES WA 165 P 82 QRSd 91 QRS 94 QT 361 T 90 QTc 376 Conclusion SINUS RHYTHM WITH OCCASIONAL SUPRAVENTRICULAR PREMATURE COMPLEXES BORDERLINE RIGHT AXIS DEVIATION [QRS AXIS > 90] INCOMPLETE RIGHT BUNDLE BRANCH BLOCK [90+ ms QRS DURATION, TERMINAL R IN V1/V2, 40+ ms S IN I/aVL/V4/V5/V6] MINIMAL ST DEPRESSION [0.025+ mV ST DEPRESSION] BORDERLINE ECG UNCONFIRMED REPORT Electronically signed by : DARI WILSON, 04/06/2025 02:18:52
--- NOTE | 2025-04-04 21:35 | [facility].EDGENADL ---
Discharge Plan Disposition Patient Disposition: Admitted Condition: Fair Clinical Impressions Clinical Impression: Acute respiratory failure with hypercapnia Pneumonia Qualifiers: Pneumonia type: due to unspecified organism Laterality: unspecified laterality Lung location: unspecified part of lung Qualified Code(s): J18.9 - Pneumonia, unspecified organism Discharge ED Provider: Desiree Carmen Adult HPI General Chief complaint: Shortness of Breath/Dyspnea Stated complaint: Altered Mental Time Seen by Provider: 04/04/25 21:16 Mode of Arrival: EMS Source of Information: Patient and EMS Description of Symptoms (Recalled from ER Triage Doc. by RN): EMS: per EMS [facility] states patient has had a low O2 sat for one day, states low 60s. EMS states patient is on home O2, however when they arrived the NC was not on her. States she is AxOx4. Patient states she is fine, has no medical complaint patient unsure why she is here. Patient temp 100.1. Patient states she may be here due to a fall she had 2 weeks ago. States she has no pain from the fall. Nursing assesment; Spo2 inital 94%, dropped to 73%, NRB applied and Patient Sp02 98%. History of Present Illness HPI narrative: Patient is a 79-year-old female who presented to the emergency department with confusion and shortness [place] [facility] states she is not sure why she is here but per [facility], patient was confused and took off her oxygen and patient was found to be hypoxic. I had a discussion with the daughter over the phone and she states that patient was recently admitted to [facility] after she had some confusion and was found to be hypercapnic. Patient was admitted to the hospital for 1 week and was discharged. Here in the emergency department, patient was found to be hypoxic was placed on nonrebreather but was able to be weaned down patient's vital signs were otherwise unremarkable patient had a low-grade fever 100.1. Patient was normotensive. States that she is not having any chest pain abdominal pain nausea vomiting or diarrhea. Patient denies any other associated symptoms except for some right hip pain from a fall 2 weeks ago. Related Data Home Medications ?Medication ?Instructions ?Recorded ?Confirmed acyclovir 400 mg tablet 400 mg PO QID 04/04/25 04/04/25 lidocaine 5 % topical patch 5 patch topical QID 04/04/25 04/04/25 lisinopril 20 mg tablet 20 mg PO QID 04/04/25 04/04/25 meclizine 25 mg tablet 25 mg PO Q8 04/04/25 04/04/25 memantine 5 mg tablet 5 mg PO Q12 04/04/25 04/04/25 metformin 500 mg tablet 500 mg PO QID 04/04/25 04/04/25 methocarbamol 500 mg tablet 500 mg PO Q8 04/04/25 04/04/25 ondansetron 4 mg disintegrating 4 mg PO Q6 04/04/25 04/04/25 tablet pantoprazole 40 mg tablet,delayed 40 mg PO Q12 04/04/25 04/04/25 release paroxetine HCl 40 mg tablet 40 mg PO QID 04/04/25 04/04/25 pregabalin 100 mg capsule 100 mg PO Q12 04/04/25 04/04/25 pregabalin 150 mg capsule (Lyrica) 150 mg PO Q12 04/04/25 04/04/25 propranolol 60 mg capsule,24 60 mg PO QID 04/04/25 04/04/25 hr,extended release theophylline 300 mg 300 mg PO Q12 04/04/25 04/04/25 tablet,extended release,12 hr PFSH [facility] Disclaimer: The information contained in this section may have been updated after the patient was seen, as this information can be updated by other users. Medical History (Updated 04/05/25 @ 00:34 by Carlos Alberto Yun APRN) Diverticul disease small and large intestine, no perforati or abscess Anxiety Hypertension Hyperosmolality and hypernatremia Type 2 diabetes mellitus Morbid (severe) obesity due to excess calories Hypercapnia COPD (chronic obstructive pulmonary disease) Acute kidney failure Metabolic encephalopathy Social History (Updated 04/05/25 @ 00:39 by Carlos Alberto Yun APRN) Smoking Status: Never smoker alcohol intake: never current occupational status: retired Travel in the last 8 weeks?: None Have you lived/traveled outside [place] in past 30 days?: No Contact w/someone who lives/traveled outside [place] past 30 days?: No Exposure to someone with infectious disease in past 14 days?: No Do you have a fever (greater than 100.4 F or 38 C)?: No Have you tested positive for COVID-19?: No Exposed to someone with COVID-19 in past 14 days?: No Do you have a sore throat?: No Do you have a cough?: No Do you have any weakness?: No Do you have any diarrhea?: No Are you experiencing any unusual bleeding?: No Do you have any muscle aches/pain?: No Do you have any abdominal pain?: No Are you experiencing loss of taste or smell?: No ROS Obtained: Yes All systems reviewed & no additional complaints except as documented and Yes Systems reviewed as appropriate & no additional complaints except as documented Physical Exam General General appearance: alert and in no apparent distress Head Head exam: atraumatic, normocephalic and normal inspection Eye Eye exam: Present normal appearance, PERRL and EOMI; Absent scleral icterus ENT ENT exam: Present normal exam and normal external ear exam Neck Neck exam: Present normal inspection and full ROM Chest Chest inspection: Present normal inspection and symmetric chest wall rise Respiratory Respiratory exam: Present normal lung sounds bilaterally; Absent respiratory distress or wheezes Cardiovascular Cardiovascular exam: Present regular rate, normal rhythm and normal heart sounds Abdominal Exam Abdominal exam: Present soft and distention; Absent tenderness, guarding or rebound Extremities Exam Extremities exam: Present normal inspection and full ROM Back Exam Back exam: Present normal inspection and full ROM Neurological Exam Neurological exam: Present alert and oriented X3 Psychiatric Psychiatric exam: Present normal affect and normal mood Skin Skin exam: Present warm and dry Medical Decision Making Medical Records Medical records reviewed: Yes I reviewed the patient's medical records. Screening: Per USPSTF and CDC recommendations, given the prevalence of disease in our region, it is our hospital?s policy to screen for HIV and viral Hepatitis for all patients aged 18 and over and those with ongoing risk factors. Ubaldo Inquiry Pt receiving controlled substance: No Vital Signs: 04/04/25 21:18 04/04/25 21:27 04/04/25 21:28 Temperature 100.1 F H 100.1 F H Temperature Source Oral Oral Pulse Rate 98 H Pulse Rate [Left] 98 H Respiratory Rate 21 21 Blood Pressure 151/65 H Blood Pressure [Right Arm] 151/65 H Blood Pressure Mean [Right Arm] 93 Blood Pressure Position 02 Sat by Pulse Oximetry 98 98 98 Oxygen Delivery Method Non-Rebreather Non-Rebreather Non-Rebreather Oxygen Flow Rate (LPM) 10 Fraction of Inspired Oxygen 04/04/25 23:15 04/05/25 00:16 Temperature 100.1 F H Temperature Source Oral Pulse Rate 67 Pulse Rate [Left] Respiratory Rate 18 Blood Pressure 151/65 H Blood Pressure [Right Arm] Blood Pressure Mean [Right Arm] Blood Pressure Position Supine 02 Sat by Pulse Oximetry Oxygen Delivery Method BiPAP Oxygen Flow Rate (LPM) Fraction of Inspired Oxygen 30 Lab Data Lab results reviewed: Yes I reviewed the patient's lab results. Lab Results 04/04/25 21:31: WBC 11.4 H, RBC 3.27 L, Hgb 9.8 L, Hct 33.0 L, MCV 100.9 H, MCH 30.0, MCHC 29.7 L, RDW 14.9, Plt Count 228, MPV 9.9, Neut % (Auto) 82.3 H, Lymph % (Auto) 7.1 L, Tate % (Auto) 8.3, Eos % (Auto) 1.7, Baso % (Auto) 0.3, Neut # (Auto) 9.4 H, Lymph # (Auto) 0.8, Tate # (Auto) 1.0, Eos # (Auto) 0.2, Baso # (Auto) 0.0, VBG pH 7.29 L, VBG pCO2 80.4 H, VBG pO2 51.0 H, VBG HCO3 38.1 H, VBG Total CO2 40.6 H, VBG O2 Saturation 83.8 H, VBG Base Excess 11.6 H, VBG Lactic Acid 1.2, Sodium 138, Potassium 5.1, Chloride 97 L, Carbon Dioxide > 40 H*, Anion Gap 6.1, BUN 37 H, Creatinine 1.20 H, Estimated Creat Clear 35, Estimated GFR 43 L, Est GFR ( Amer) 53 L, Glucose 122 H, Calcium 8.6, Magnesium 2.1, Total Bilirubin 0.4, AST 53 H, ALT 63, Alkaline Phosphatase 108, Troponin I < 0.01, NT-Pro-B Natriuret Pep 3180 H, Total Protein 6.8, Albumin 3.6, Globulin 3.2, Albumin/Globulin Ratio 1.1 04/04/25 21:40: Chlamy pneumoniae PCR Not detected, Adenovirus (PCR) Not detected, B. pertussis DNA (PCR) Not detected, Coronavirus OC43 (PCR) Not detected, Coronavirus HKU1 (PCR) Not detected, Coronavirus 229E (PCR) Not detected, SARS-CoV-2 (PCR) Not detected, Coronavirus NL63 (PCR) Not detected, Human Metapneumovir PCR Not detected, Influenza A (H1) PCR Not detected, Influ A (H1N1/09) PCR Not detected, Influenza A (H3) PCR Not detected, Influenza Type A (PCR) Not detected, Influenza Type B (PCR) Not detected, M. pneumoniae (PCR) Not detected, Parainfluenza 1 (PCR) Not detected, Parainfluenza 2 (PCR) Not detected, Parainfluenza 3 (PCR) Not detected, Parainfluenza 4 (PCR) Not detected, RSV (PCR) Not detected, Entero/Rhino (PCR) Not detected 04/04/25 21:50: Urine Color Yellow, Urine Appearance Clear, Urine pH 5.5, Ur Specific [place] 1.015, Urine Protein Negative, Urine Glucose (UA) 1+, Urine Ketones Negative, Urine Blood Negative, Urine Nitrate Negative, Urine Bilirubin Negative, Urine Urobilinogen 0.2, Ur Leukocyte Esterase Negative, Urine RBC None, Urine WBC None, Ur Squamous Epith Cells 10-20, Urine Bacteria 1+ 04/04/25 21:31 04/04/25 21:31 Orders (Tests/Meds): ED MEDICATIONS Generic Name Dose Route Start Last Admin Trade Name Freq PRN Reason Stop Dose Admin Acetaminophen 650 mg 04/05/25 00:11 Acetaminophen 325mg Tab PO 05/05/25 00:10 Q4HP PRN Fever or Mild Pain (1-3) Hydrocodone Bitart/Acetaminophen 1 tab 04/05/25 00:11 Hydrocodone/Apap 5/325 Mg Tablet PO 05/05/25 00:10 Q4HP PRN Mild to Moderate Pain (1-6) Albuterol/Ipratropium 3 ml 04/05/25 06:00 Ipratropium/Albuterol 3 Ml Neb IH 05/05/25 05:59 Q6RT ANASTASIYA Azithromycin 250 mg 04/06/25 09:00 Azithromycin 250mg Tablet PO 04/16/25 08:59 DAILY ANASTASIYA Diazepam 2.5 mg 04/05/25 00:18 Diazepam 10mg/2ml Syringe IV 05/05/25 00:17 Q6HP PRN Anxiety Enoxaparin Sodium 40 mg 04/05/25 09:00 Enoxaparin 40mg/0.4ml Syringe SUBCUT 05/05/25 08:59 DAILY [facility] Furosemide 40 mg 04/05/25 00:11 Furosemide 40mg/4ml Vial IV 04/05/25 00:12 ONCE STA Furosemide 40 mg 04/05/25 09:00 Furosemide 40mg/4ml Vial IV 05/05/25 08:59 DAILY [facility] Azithromycin 500 mg/ Sodium 250 mls @ 250 mls/hr 04/04/25 23:45 04/04/25 23:58 Chloride IV 04/14/25 23:44 250 mls/hr Q24H ANASTASIYA Administration Ceftriaxone Sodium 2 gm/ 100 mls @ 200 mls/hr 04/04/25 23:45 Sodium Chloride IV 04/14/25 23:44 Q24H ANASTASIYA Ceftriaxone Sodium 1 gm/ 50 mls @ 100 mls/hr 04/05/25 09:00 Sodium Chloride IV 04/15/25 08:59 Q24H [facility] Insulin Human Lispro 0 unit 04/05/25 06:00 Humalog 100 Units/Ml 10ml Vial (Ssi) SUBCUT 05/05/25 05:59 ACHS [facility] Protocol Methylprednisolone Sodium Succinate 40 mg 04/05/25 09:00 Methylprednisolone Sod Succ 40mg Vial IV 05/05/25 08:59 Q12H [facility] Montelukast Sodium 10 mg 04/05/25 21:00 Montelukast Sodium 10mg Tab PO 05/05/25 20:59 HS [facility] Ondansetron HCl 4 mg 04/05/25 00:11 Ondansetron 4mg/2ml Vial IV 05/05/25 00:10 Q8HP PRN Nausea Sodium Chloride 10 ml 04/04/25 22:34 Sodium Chloride 0.9% 10ml Syr (Rad Only) IV 05/04/25 22:33 NEEDED PRN Maintain IV Site Sodium Chloride 10 ml 04/05/25 00:11 Sodium Chloride 0.9% 10ml Flush Syringe IV 05/05/25 00:10 NEEDED PRN Maintain IV Site Sodium Chloride 3 ml 04/05/25 00:16 Sodium Chloride 3% 15ml Neb IH 05/05/25 00:15 ONCE PRN INDUCE SPUTUM COLLECTION Discontinued Medications Generic Name Dose Route Start Last Admin Trade Name Freq PRN Reason Stop Dose Admin Iopamidol 80 ml 04/04/25 22:34 Iopamidol-370 (76%);100ml Bottle IV 04/04/25 22:35 ONCE ONE Midazolam HCl 1 mg 04/04/25 23:40 04/04/25 23:43 Midazolam 2mg/2ml Vial IV 04/04/25 23:41 1 mg ONCE ONE Administration Sodium Chloride 50 ml 04/04/25 22:34 0.9 % Sodium Chloride 50 Ml Vial IV 04/04/25 22:35 ONCE ONE ORDERS Category Date Time Status CT angio chest PE protocol Stat Cat Scan 04/04/25 22:[address] head/brain wo con Stat Cat Scan 04/04/25 21:19 Completed CXR --portable [XR chest portable] Stat Exams 04/04/25 21:19 Completed BNP [NT Pro Brain Natriuretic Pep.] Stat Lab 04/04/25 21:31 Completed CBC w/Auto Diff [Complete Blood Count Auto Diff] Stat Lab 04/04/25 21:31 Completed CMP [Comprehensive Metabolic Panel] Stat Lab 04/04/25 21:31 Completed Full Resp Panel w/COVID ([facility]) Routine Lab 04/04/25 21:40 Completed MAG [Magnesium] Stat Lab 04/04/25 21:31 Completed Trop I [Troponin I] Stat Lab 04/04/25 21:31 Completed Troponin I Q3H Lab 04/05/25 00:30 Ordered Troponin I Q3H Lab 04/05/25 03:30 Ordered UA [Urinalysis and Microscopic] Stat Lab 04/04/25 21:50 Completed Urine Culture Stat Micro 04/04/25 21:50 Received VBG [Venous Blood Gas] Stat RT 04/04/25 21:31 Completed VBG [Venous Blood Gas] Stat RT 04/05/25 01:30 Ordered Medical Decision Narrative: Patient is a 79-year-old female with a past medical history of COPD who presented to the emergency department with altered mental status and shortness of breath. On arrival, patient was initially hypoxic, borderline febrile at 100.1. Patient was normotensive not tachycardic. Differential includes but not limited to: Pneumonia, hypercapnic respiratory failure, hypoxic respiratory failure, pulmonary embolism, pleural effusion, ACS/LA, electrolyte abnormalities, amongst others. Labs reviewed and interpreted by myself: CBC showed no leukocytosis, hemoglobin was stable CMP was unremarkable. VBG showed significant hypercapnia of 80 with mild acidosis of 7.29. CMP was unremarkable except for significantly elevated carbon dioxide. BNP mildly elevated at 3180. Troponin was normal. UA showed no evidence of infection. Respiratory panel was negative. CT head showed no acute pathology. CT PE showed possible pneumonia no pulmonary embolism. Given patient's hypercapnia, patient was placed on BiPAP. Patient was given CAP coverage with Rocephin and azithromycin. I discussed the case with hospital medicine and patient was ultimately admitted to the hospital for further evaluation and workup. Critical Care Critical Care Time Critical Care Time: No
[2025-04-04 21:42] LABS: Lactate Venous 1.2 mmol/L (0.4-2.0); VBG HCO3 38.1 mmol/L (23-30); VBG PH 7.29 mmol/L (7.31-7.41); VBG PO2 51.0 mmol/L (28-40)
[2025-04-04 21:44] LABS: Hematocrit 33.0 % (37.0-47.0); Hemoglobin 9.8 g/dL (12.2-16.2); Immature Granulocytes % 0.3 %; Mean Corpuscular HGB Conc 29.7 g/dL (31.8-35.4); Mean Corpuscular Hemoglobin 30.0 pg (27.0-31.2); Mean Corpuscular Volume 100.9 fl (81-99); Nucleated Red Blood Cells % 0 %; Platelet Count 228 K/mm3 (142-424); Red Blood Count 3.27 M/mm3 (4.20-5.40); Red Cell Distribution Width-SD 55.2 fL; White Blood Count 11.4 K/mm3 (4.8-10.8)
[2025-04-04 21:45] LABS: VBG PCO2 80.4 mmol/L (35-51)
[2025-04-04 21:52] LABS: Magnesium 2.1 mg/dl (1.6-2.3)
[2025-04-04 21:53] LABS: Alanine Aminotransferase 63 U/L (12-78); Albumin Level 3.6 g/dl (3.5-5.0); Albumin/Globulin Ratio 1.1 (1.1-1.8); Alkaline Phosphatase 108 U/L (38-126); Anion Gap 6.1 mEq/L (5-15); Aspartate Amino Transferase 53 U/L (14-36); Bilirubin,Total 0.4 mg/dl (0.2-1.3); Blood Urea Nitrogen 37 mg/dl (7-17); Calcium 8.6 mg/dl (8.4-10.2); Chloride 97 mmol/L (98-107); Creatinine Clearance Estimated 35 mL/min (50-200); Creatinine,Serum 1.20 mg/dl (0.52-1.04); Estimated Glomerular Filt Rate 43 ml/min (>60); GFR (African American) 53 ML/MIN (>60); Globulin 3.2 g/dL (1.3-3.2); Glucose 122 mg/dl (74-100); Potassium 5.1 mmoL/L (3.5-5.1); Sodium 138 mmol/L (136-145); Total Protein,Serum 6.8 g/dl (6.3-8.2)
[2025-04-04 21:56] LABS: Adenovirus,PCR Not Detected (NotDetected); Chlamydophila Pneumoniae, PCR Not Detected (NotDetected); Coronavirus 19, PCR Not Detected (NotDetected); Coronovirus HKU1,PCR Not Detected (NotDetected); Influenza A, PCR Not Detected (NotDetected); Influenza AH1, 2009 Not Detected (NotDetected); Influenza AH1, PCR Not Detected (NotDetected); Influenza AH3,PCR Not Detected (NotDetected); Influenza B, PCR Not Detected (NotDetected); Mycoplasma Pneumoniae, PCR Not Detected (NotDetected); Parainfluenza 1, PCR Not Detected (NotDetected); Parainfluenza 2, PCR Not Detected (NotDetected); Parainfluenza 3, PCR Not Detected (NotDetected); Parainfluenza 4, PCR Not Detected (NotDetected)
[2025-04-04 21:56] LABS: Microscopic, Urine URINE MICROSCOPIC (MICROSCOPIC)
[2025-04-04 21:58] LABS: Bilirubin,Urine Negative (Negative); Color,Urine YELLOW (Yellow); Glucose,Urine (UA) 1+ (Negative); Ketones,Urine Negative (Negative); Leukocyte Esterase,Urine Negative (Negative); PH,Urine 5.5 (5.0-8.5); Protein,Urine Negative (Negative); Specific Gravity, Urine 1.015 (1.005-1.030); Urobilinogen,Urine 0.2 EU/dl (0.2)
[2025-04-04 22:05] LABS: Troponin I < 0.01 ng/ml (0.00-0.034)
[2025-04-04 22:19] LABS: Carbon Dioxide > 40 mmol/L (22.0-30.0)
--- NOTE | 2025-04-04 22:21 | CT_ITS ---
PROCEDURE INFORMATION: Exam: CTA Chest With Contrast Exam date and time: 04/04/2025 10:31 PM Age: 79 years old Clinical indication: Shortness of breath; Additional info: SOB TECHNIQUE: Imaging protocol: Computed tomographic angiography of the chest with contrast. Exam focused on the arteries. 3D rendering (Not supervised by radiologist): MIP and/or 3D reconstructed images were created by the technologist. Radiation optimization: All CT scans at this facility use at least one of these dose optimization techniques: automated exposure control; mA and/or kV adjustment per patient size (includes targeted exams where dose is matched to clinical indication); or iterative reconstruction. Contrast material: ISOVUE; Contrast volume: 75 ml; Contrast route: INTRAVENOUS (IV); COMPARISON: CR XR CHEST PORTABLE 04/04/2025 9:52 PM FINDINGS: Pulmonary arteries: Normal. No pulmonary emboli. Aorta: Moderate atherosclerotic calcification in the aortic arch. No evidence of aneurysm or dissection. Lungs: There is focal parenchymal opacity in the posterior aspect of the lingula. Mild perihilar infiltrate in the superior segment of the left lower lobe. Pleural spaces: Unremarkable. No pneumothorax. No pleural effusion. Heart: The heart is mildly enlarged. No significant pericardial fluid. Lymph nodes: Unremarkable. No enlarged lymph nodes. Bones/joints: Moderate degenerative disc changes throughout the thoracic spine. No vertebral body compression. No acute fracture. Soft tissues: Unremarkable. IMPRESSION: 1. Mild perihilar left lower lobe infiltrate concerning for acute pneumonitis or bronchitis 2. Small area of parenchymal opacity in the lingula may represent bland atelectasis or pneumonia.
[2025-04-04 22:24] LABS: Bacteria,Urine 1+ /lpf
[2025-04-04 22:52] LABS: NT Pro Brain Natriuretic Pep. 3180 pg/mL (0-450)
[2025-04-04 23:15] VITALS: RESP 18; RESP 21
[2025-04-04] MEDS: MIDAZOLAM 2MG/2ML VIAL 1 MG IV (23:43)
[2025-04-04] MEDS: AZITHROMYCIN 500 MG in 0.9 % SODIUM CHLORIDE 250 ML 250 MG IV (23:58)
[2025-04-05] VITALS (23 sets, daily range): BP systolic 107–151; BP diastolic 39–65; PULSE 54–89; RESP 12–25; TEMP 36.6–37.8; O2SAT 90–100; BMI 45.3
--- NOTE | 2025-04-05 00:16 | PC.NURSE ---
report called to Jannet MOHAMUD
--- NOTE | 2025-04-05 00:21 | P.HP_ITS ---
<Statement entered by Marcos Lynn MD - 04/05/25 14:15> Agree with the plan of care as outlined by the PUBLIC SPEAKING TEACHER. History of Present Illness *Admission Date: 04/05/25 *Reason for visit:: Shortness of breath *History of present illness: This is a 79-year-old morbid obese female who has a past medical history significant for anxiety, hypertension, type 2 diabetes, CO2 retention, and COPD who presents from [place] with a chief complaint of shortness of air and altered mental status. Due to the patient's symptoms, she was transition to [facility]. It was noted that patient's oxygen saturation at a seated rate was 60%. Patient presented here and her pCO2 was in the 80s with her pH 7.2. She was placed on BiPAP. Hospital medicine was consulted for further management. During my evaluation of the patient, she reports that she has been having shortness of air for at least the past 1 to 2 days. She reports having some increased swelling to her lower extremities. Patient is alert but not fully oriented. She is currently denying any chest pain, lightheadedness, dizziness, fever, chills, rigors, nausea, vomiting, or diarrhea. Pertinent vitals obtained in emergency room include a temperature of 100.1, CT scan of the chest revealed mild perihilar left lower lobe infiltrate concerning for acute pneumonitis/bronchitis and small area of parenchymal opacity in the lingula may represent gland atelectasis or pneumonia, white blood cell count is 11.4, red blood cell count was 3.27, hemoglobin was 9.8, hematocrit 33, neutrophils 82.3%, pH of 7.29, pCO2 of 80.4, pO2 of 51, pCO2 of 38.1, chloride of 97, carbon dioxide was greater than 40, BUN of 37, creatinine 1.20, GFR 43, blood glucose 122, AST of 53, and BNP of 3180. [facility] Disclaimer: The information contained in this section may have been updated after the patient was seen, as this information can be updated by other users. Medical History (Updated 04/05/25 @ 00:34 by Carlos Alberto Yun APRN) Diverticul disease small and large intestine, no perforati or abscess Anxiety Hypertension Hyperosmolality and hypernatremia Type 2 diabetes mellitus Morbid (severe) obesity due to excess calories Hypercapnia COPD (chronic obstructive pulmonary disease) Acute kidney failure Metabolic encephalopathy Social History Smoking Status: Never smoker alcohol intake: never current occupational status: retired Travel in the last 8 weeks?: None Review of Systems Review of Systems Review of systems:: pertinent systems reviewed and negative unless documented below Constitutional Constitutional: Reports system reviewed and no additional complaints, except as documented Eyes Eyes: Reports system reviewed and no additional complaints, except as documented ENT Ears, Nose, Mouth, and Throat: Reports system reviewed and no additional complaints, except as documented *Cardiovascular Cardiovascular: Reports dyspnea, Reports dyspnea on exertion and Reports edema *Respiratory Respiratory: Reports dyspnea and Reports dyspnea on exertion *Gastrointestinal Gastrointestinal: Reports system reviewed and no additional complaints, except as documented *Genitourinary Genitourinary: Reports system reviewed and no additional complaints, except as documented *Musculoskeletal Musculoskeletal: Reports system reviewed and no additional complaints, except as documented Integumentary/Breasts Skin/Breast: Reports system reviewed and no additional complaints, except as documented *Neurologic Neurologic: Reports system reviewed and no additional complaints, except as documented and Reports confusion Psychiatric Psychiatric: Reports confusion Endocrine Endocrine: Reports system reviewed and no additional complaints, except as documented Hematologic/Lymphatic Hematologic/Lymphatic: Reports system reviewed and no additional complaints, except as documented Allergic/Immunologic Allergic/Immunologic: Reports system reviewed and no additional complaints, except as documented Meds Home Medications and Allergies Home Medications ?Medication ?Instructions ?Recorded ?Confirmed ?Type acyclovir 400 mg tablet 400 mg PO QID 04/04/2504/04 History lidocaine 5 % topical patch 5 patch topical QID 04/04/25 History lisinopril 20 mg tablet 20 mg PO QID 04/04/25 History meclizine 25 mg tablet 25 mg PO Q8 04/04/25 5 History memantine 5 mg tablet 5 mg PO Q12 04/04/25 5 History metformin 500 mg tablet 500 mg PO QID 04/04/2504/04 History methocarbamol 500 mg tablet 500 mg PO Q8 04/04/2512/20 History ondansetron 4 mg disintegrating 4 mg PO Q6 04/04/25 History tablet pantoprazole 40 mg tablet,delayed 40 mg PO Q12 5 04/04/25 History release paroxetine HCl 40 mg tablet 40 mg PO QID 04/04/25 1112/20 History pregabalin 100 mg capsule 100 mg PO Q12 04/04/2504/04 History pregabalin 150 mg capsule (Lyrica) 150 mg PO Q12 04/0404/04/25 History propranolol 60 mg capsule,24 60 mg PO QID 04/04/2512/20 History hr,extended release theophylline 300 mg 300 mg PO Q12 04/04/2504/04 History tablet,extended release,12 hr New Prescriptions to Start Prescriptions: Exam Data for Last 24 hours Vital signs and Labs for Last 24 Hours: Temp Pulse Resp BP Pulse Ox O2 Del Method O2 Flow Rate 100.1 F H 67 18 151/65 H 98 BiPAP 10 04/05/25 00:16 04/05/25 00:16 04/05/25 00:16 04/05/25 00:16 04/04/25 21:28 04/05/25 00:16 04/04/25 21:28 Laboratory Results - last 24 hr 04/04/25 21:31: WBC 11.4 H, RBC 3.27 L, Hgb 9.8 L, Hct 33.0 L, MCV 100.9 H, MCH 30.0, MCHC 29.7 L, RDW 14.9, Plt Count 228, MPV 9.9, Neut % (Auto) 82.3 H, Lymph % (Auto) 7.1 L, [place] % (Auto) 8.3, Eos % (Auto) 1.7, Baso % (Auto) 0.3, Neut # (Auto) 9.4 H, Lymph # (Auto) 0.8, [place] # (Auto) 1.0, Eos # (Auto) 0.2, Baso # (Auto) 0.0, VBG pH 7.29 L, VBG pCO2 80.4 H, VBG pO2 51.0 H, VBG HCO3 38.1 H, VBG Total CO2 40.6 H, VBG O2 Saturation 83.8 H, VBG Base Excess 11.6 H, VBG Lactic Acid 1.2, Sodium 138, Potassium 5.1, Chloride 97 L, Carbon Dioxide > 40 H*, Anion Gap 6.1, BUN 37 H, Creatinine 1.20 H, Estimated Creat Clear 35, Estimated GFR 43 L, Est GFR ( Amer) 53 L, Glucose 122 H, Calcium 8.6, Magnesium 2.1, Total Bilirubin 0.4, AST 53 H, ALT 63, Alkaline Phosphatase 108, Troponin I < 0.01, NT-Pro-B Natriuret Pep 3180 H, Total Protein 6.8, Albumin 3.6, Globulin 3.2, Albumin/Globulin Ratio 1.1 04/04/25 21:40: Chlamy pneumoniae PCR Not detected, Adenovirus (PCR) Not detected, B. pertussis DNA (PCR) Not detected, Coronavirus OC43 (PCR) Not detected, Coronavirus HKU1 (PCR) Not detected, Coronavirus 229E (PCR) Not detected, SARS-CoV-2 (PCR) Not detected, Coronavirus NL63 (PCR) Not detected, Human Metapneumovir PCR Not detected, Influenza A (H1) PCR Not detected, Influ A (H1N1/09) PCR Not detected, Influenza A (H3) PCR Not detected, Influenza Type A (PCR) Not detected, Influenza Type B (PCR) Not detected, M. pneumoniae (PCR) Not detected, Parainfluenza 1 (PCR) Not detected, Parainfluenza 2 (PCR) Not detected, Parainfluenza 3 (PCR) Not detected, Parainfluenza 4 (PCR) Not detected, RSV (PCR) Not detected, Entero/Rhino (PCR) Not detected 04/04/25 21:50: Urine Color Yellow, Urine Appearance Clear, Urine pH 5.5, Ur Specific [place] 1.015, Urine Protein Negative, Urine Glucose (UA) 1+, Urine Ketones Negative, Urine Blood Negative, Urine Nitrate Negative, Urine Bilirubin Negative, Urine Urobilinogen 0.2, Ur Leukocyte Esterase Negative, Urine RBC None, Urine WBC None, Ur Squamous Epith Cells 10-20, Urine Bacteria 1+ I & O for Last 24 hours: Intake & Output 04/02/25 04/03/25 04/04/25 04/05/25 23:59 23:59 23:59 23:59 Weight 117.934 kg Constitutional Constitutional: no acute distress, obese and agitated *Routine HEENT Exam Head: Present normocephalic and atraumatic Eye: Present EOMI, PERRL and normal accommodation ENT: Present mucous membranes moist *Routine Neck Exam Neck: Present supple, full ROM and trachea midline *Routine Respiratory Exam Respiratory: Present wheezes, distant breath sounds, diminished air movement, normal respiratory effort and symmetric chest movement *Routine Cardiovascular Exam Cardiovascular: Present RRR, Normal S1 and Normal S2 *Routine Abdominal Exam Abdominal: Present soft, normoactive bowel sounds and obese *Routine Rectal Exam Rectal:: deferred *Routine Genitalia Exam Genitalia:: deferred *Routine Extremities Exam Extremities: Present edema, full ROM, pulses intact and normal capillary refill Routine Back/Spine/Pelvis Exam Back/Spine: Present full ROM *Routine Skin Exam Skin: Present intact, dry and warm *Routine Neurological Exam Neurological: Present alert, altered mental status, moving all extremities and normal speech Routine Psychiatric Exam Psychiatric: Present anxious H&P: Result Impressions 79-year-old female presents with acute mental status changes due to hypercapnia was found to have acute hypoxemia and pneumonia Assessment and Plan *Assessment and plan (1) Pneumonia: Status: Acute Qualifiers: Pneumonia type: due to unspecified organism Laterality: unspecified laterality Lung location: unspecified part of lung Qualified Code(s): J18.9 - Pneumonia, unspecified organism Category: Medical Code(s): J18.9 - Pneumonia, unspecified organism (2) Acute respiratory failure with hypercapnia: Status: Acute Category: Medical Code(s): J96.02 - Acute respiratory failure with hypercapnia (3) Leukocytosis: Status: Acute Qualifiers: Leukocytosis type: unspecified Qualified Code(s): D72.829 - Elevated white blood cell count, unspecified Category: Medical Code(s): D72.829 - Elevated white blood cell count, unspecified (4) COPD exacerbation: Status: Acute Category: Medical Code(s): J44.1 - Chronic obstructive pulmonary disease with (acute) exacerbation (5) Macrocytosis: Status: Acute Category: Medical Code(s): D75.89 - Other specified diseases of blood and blood-forming organs (6) Elevated brain natriuretic peptide (BNP) level: Status: Acute Category: Medical Code(s): R79.89 - Other specified abnormal findings of blood chemistry (7) Morbid obesity: Status: Acute Category: Medical Code(s): E66.01 - Morbid (severe) obesity due to excess calories Plan Assessment: Left lower lobe healthcare associated pneumonia: Most likely bacterial Acute on chronic hypoxic hypercapnic respiratory failure Leukocytosis with left shift COPD with exacerbation Elevated BNP - We will continue antibiotics and 1 g of Rocephin IV daily with 250 mg of azithromycin p.o. daily - BiPAP with expiratory pressure of 16 and expiratory pressure 8 respiratory rate of 18 - Repeat venous blood gas at 0 130 - DuoNebs every 6 hours - Sputum for culture - 10 mg of Singulair p.o. daily - 40 mg Lasix IV daily - 2D echo - Obtain procalcitonin = 40 mg of Solu-Medrol IV twice daily Macrocytosis - Obtain folate acid and vitamin B12 Morbid obesity - Discussed changes in patient's dietary intake and exercise to help reduce patient's weight Plan: Admit patient to the stepdown unit SCDs to bilateral lower extremity Saline lock Vital signs every 2 hours 1800 ADA/cardiac diet Accu-Cheks AC and at bedtime with mild scale coverage CBC/BMP daily Will continue to trend patient's troponin 2.5 mg of diazepam IV push as needed anxiety 40 mg Lovenox IV daily 5 mg [place] p.o. every 4 hours PMR pain Blood cultures x 2 Swab for MRSA Full code I will discuss this patient with attending physician Dr. Lynn and I look forward to more input
[2025-04-05] MEDS: SODIUM CHLORIDE 3% 15ML NEB 3 ML IH (01:02)
[2025-04-05] MEDS: FUROSEMIDE 40MG/4ML VIAL 40 MG IV ×2 (01:49→08:36)
[2025-04-05 02:22] LABS: Lactate Venous 1.0 mmol/L (0.4-2.0); VBG HCO3 34.1 mmol/L (23-30); VBG PH 7.39 mmol/L (7.31-7.41); VBG PO2 44.4 mmol/L (28-40)
[2025-04-05 02:24] LABS: VBG PCO2 58.1 mmol/L (35-51)
[2025-04-05 03:20] LABS: Troponin I < 0.01 ng/ml (0.00-0.034)
[2025-04-05] MEDS: HYDROCODONE/APAP 5/325 MG TABLET 1 TAB PO (05:16)
[2025-04-05 06:20] LABS: POC Glucose,Bedside 150 gm/dL (70-110)
[2025-04-05] MEDS: IPRATROPIUM/ALBUTEROL 3 ML NEB IH ×4 (06:49→23:16)
[2025-04-05 07:43] LABS: Hematocrit 31.1 % (37.0-47.0); Hemoglobin 9.1 g/dL (12.2-16.2); Immature Granulocytes % 0.5 %; Mean Corpuscular HGB Conc 29.3 g/dL (31.8-35.4); Mean Corpuscular Hemoglobin 30.0 pg (27.0-31.2); Mean Corpuscular Volume 102.6 fl (81-99); Nucleated Red Blood Cells % 0 %; Platelet Count 208 K/mm3 (142-424); Red Blood Count 3.03 M/mm3 (4.20-5.40); Red Cell Distribution Width-SD 56.4 fL; White Blood Count 10.0 K/mm3 (4.8-10.8)
[2025-04-05 08:19] LABS: Troponin I < 0.01 ng/ml (0.00-0.034)
[2025-04-05] MEDS: METHYLPREDNISOLONE SOD SUCC 40MG VIAL 40 MG IV ×2 (08:36→20:36)
[2025-04-05 08:52] LABS: Free T4 (Free Thyroxine) 0.79 ng/dl (0.78-2.19)
[2025-04-05 09:07] LABS: Thyroid Stimulating Hormone 1.90 uIU/mL (0.465-4.68)
[2025-04-05 09:08] LABS: C-Reactive Protein 19.8 mg/L (0-4)
[2025-04-05 09:20] LABS: Procalcitonin 0.169 ng/mL (0.0-2.0)
[2025-04-05 09:23] LABS: Folate 8.79 ng/mL
[2025-04-05 09:26] LABS: Vitamin B12 393 pg/mL (239-931)
[2025-04-05 09:36] LABS: Anion Gap 7.6 mEq/L (5-15); Blood Urea Nitrogen 34 mg/dl (7-17); Calcium 8.6 mg/dl (8.4-10.2); Carbon Dioxide 37 mmol/L (22.0-30.0); Chloride 99 mmol/L (98-107); Creatinine Clearance Estimated 31 mL/min (50-200); Creatinine,Serum 1.30 mg/dl (0.52-1.04); Estimated Glomerular Filt Rate 40 ml/min (>60); GFR (African American) 48 ML/MIN (>60); Glucose 120 mg/dl (74-100); Potassium 4.6 mmoL/L (3.5-5.1); Sodium 139 mmol/L (136-145)
[2025-04-05 09:55] LABS: Procalcitonin 0.164 ng/mL (0.0-2.0)
[2025-04-05 10:06] LABS: Lactate Venous 0.9 mmol/L (0.4-2.0); VBG HCO3 34.2 mmol/L (23-30); VBG PH 7.36 mmol/L (7.31-7.41); VBG PO2 32.5 mmol/L (28-40)
[2025-04-05 10:14] LABS: VBG PCO2 62.3 mmol/L (35-51)
--- NOTE | 2025-04-05 10:22 | PC.NURSE ---
Notified MD Chris Lynn about patients critical pco2 on her vbg. He is aware and ok with patient not being placed back on bipap.
--- NOTE | 2025-04-05 10:33 | P.CONPHA_ITS ---
Pharmacy Intervention Comments: MEDICATION RECONCILIATION COMPLETED ON PATIENT USING MAR FROM [facility]. -NADIA ALVARADO, MARGARETD
--- NOTE | 2025-04-05 10:33 | HMH.PHAINT1 ---
Pharmacy Intervention Comments: MEDICATION RECONCILIATION COMPLETED ON PATIENT USING MAR FROM [facility]. -NADIA ALVARADO, MARGARETD
--- NOTE | 2025-04-05 10:36 | PC.NURSE ---
Patient down graded from step down status to med surge status.
--- NOTE | 2025-04-05 11:03 | PC.NURSE ---
Charge nurse Charly Prescott called patient is going to room 217
[2025-04-05] MEDS: BUDESONIDE 0.5MG/2ML NEB 0.5 MG IH ×2 (12:21→18:43)
--- NOTE | 2025-04-05 14:32 | PC.NURSE ---
Addendum entered by Delfina Mackenzie RN 04/05/25 18:14: O2 SATURATION 92% ON 2 L NC. Addendum entered by Delfina Mackenzie RN 04/05/25 18:09: WHEN PHYSICAL THERAPY ARRIVED THIS EVENING TO EVALUATE PT SHE WAS UNABLE TO FOLLOW COMMANDS AND STAY AWAKE. PT WAS UNABLE TO PARTICIPATE. HOSPITALIST NOTIFIED AND ARRIVED AT BEDSIDE. VSS, GLUCOSE AND VBG ORDERED. BP 144/42. HR 80. R 18. TEMP 98.3. GLUCOSE 195. Original Note: PT IS SITTING UP IN THE CHAIR. ALERT AND ORIENTED X3. PT WILL OCCASIONALLY HAVE A DIFFICULT TIME FINDING HER WORDS. EATING AND DRINKING WELL. PT REFUSED PURWICK. AMBULATED TO THE BATHROOM STANDBY ASSIST AND WALKER. EATING AND DRINKING WELL. LUNG SOUNDS DIMINISHED. ABDOMEN SOFT/LARGE/NON TENDER WITH ACTIVE BOWEL SOUNDS. O2 SATURATION HAS MAINTAINED 90-94% ON 2 L NC. WILL CONTINUE TO MONITOR.
[2025-04-05] MEDS: humaLOG 100 UNITS/ML 10ML VIAL (SSI) SUBCUT ×2 (16:07→20:36)
[2025-04-05 16:16] LABS: POC Glucose,Bedside 251 gm/dL (70-110)
[2025-04-05 18:10] LABS: POC Glucose,Bedside 195 gm/dL (70-110)
[2025-04-05 18:29] LABS: Lactate Venous 1.8 mmol/L (0.4-2.0); VBG HCO3 37.7 mmol/L (23-30); VBG PH 7.34 mmol/L (7.31-7.41); VBG PO2 47.0 mmol/L (28-40)
[2025-04-05 18:30] LABS: VBG PCO2 71.9 mmol/L (35-51)
--- NOTE | 2025-04-05 19:06 | HMH.PTEV ---
Physical Therapy Evaluation Rehab PT IP Evaluation Start: 04/05/25 02:01 Freq: ONCE Status: Active Protocol: Document 04/05/25 19:01 PHOGAVIN (Rec: 04/05/25 19:05 PHORNE [id number]) Subjective/History History History 79-year-old morbid obese female who has a past medical history significant for anxiety, hypertension, type 2 diabetes, CO2 retention, and COPD who presents from [place] with a chief complaint of shortness of air and altered mental status. Due to the patient's symptoms, she was transition to [facility]. It was noted that patient's oxygen saturation at a seated rate was 60%. Patient presented here and her pCO2 was in the 80s with her pH 7.2. She was placed on BiPAP. Hospital medicine was consulted for further management. Subjective Subjective Pt currently asleep, difficult to arouse, and pleasantly confused throughout treatment. Pt unable to answer questions about her home situation at this time, but she does have a daughter who may be able to take her to her home after d/c. [facility] [address] How much help from another person do you currently need... Turning from your A little back to your side while in a flat bed without using bedrails? Moving from lying on A little back to sitting on the side of a flat bed without using bedrails? Moving to and from a A little bed to a chair ( including a wheelchair)? Standing up from a A little chair using your arms? (e.g., wheelchair, bedside chair) Walking in hospital A little room? Climbing 3-5 steps A little with a railing? Mobility Score 18 Mobility Level [facility] Mobility 6 Walk 10 steps or more Mobility Calculator Rehab PT IP Eval Objective Appearance Patient Behavior Asleep,Confused Patient Orientation Person Difficulty following mild instructions Speech Pattern Clear,Delayed Ambulation Patient Able to Yes Ambulate Ambulation Observation IP General Gait Wide Based Gait,Shuffling Step Pattern Observation Ambulation Distance 5 (feet) Ambulation Assistive Standard Walker Device Ambulation Ability Contact Guard/Hand Hold Balance Ability to Arise Able, uses arms to help Sitting Balance Steady, safe Standing Balance Unsteady Dynamic Sitting Fair Balance Ability Dynamic Standing Poor Balance Ability Transfers Bed Transfer Ability Minimal x 1 (25% assist) Chair Transfer Contact Guard/Hand Hold Ability Sit to Stand Bed Minimal x 1 (25% assist) Transfer Ability Sit to Stand Chair Minimal x 1 (25% assist) Transfer Ability Rehab PT IP prob,goals,plan Problems Date of Evaluation: 04/05/25 PT IP Problems Bed Mobility,Transfers,Gait,Balance,Self care,Safety, Other Rehab Potential Rehab Potential Good Plan PT Intervention Plan Bed Mobility,Transfers,Gait,Balance,Self care,Safety, Therapeutic Exercise,Other PT Plan Frequency Daily Duration LOS Discharge Goals Bed Transfer Ability Supervision/Stand by Sit to Stand Chair Contact Guard/Hand Hold Transfer Ability Ambulation Assistive Rolling Walker Device Ambulation Distance 20 (feet) Discharge Plan PT Discharge Plan Pt is currently most appropriate for rehab placement once medically stable for d/c. Skilled acute therapy services are indicated to improve general functional mobility, transfers, ambulation, and ADLs in order to aid pt return to PLOF. Eval Complexity Eval Charge Codes 27099 - High Complexity PHYSICIAN CERTIFICATION: I certify the specified therapy services for Ruma Vargas are required, authorized, and reviewed every 30 days.
[2025-04-05 20:01] LABS: POC Glucose,Bedside 201 gm/dL (70-110)
[2025-04-05] MEDS: diazePAM 10MG/2ML SYRINGE 2.5 MG IV (20:10)
--- OUTSIDE RECORDS SUMMARY | 2025-04-05 20:23 | XMS_ITS | Patient Health Record ---
Author Organization [facility] Physician Salome ferguson Billing Info Address [address] [place] [id number] Care Team Providers Care Vp Production Name Role Phone Pa Yun Primary Care Provider Unavailchad e MYA ESPARZA Unavailable [phone] JOVITA KIRK Unavailable Unavailable PTEE HAGEN Unavailable [phone] TIN CORRAL Unavailable [phone] Allergies Allergen (clinical drug ingredient) Drug/Non Drug Allergy documented on EMR Reaction Allergy Type Onset Date Status soy (uncoded) Unknown Allergy Active aspirin Aspirin Unknown Drug Allergy Active ibuprofen Ibuprofen Unknown Drug Allergy Active Reason For Referral Referring Provider First Name Pa Referring Provider Last Name Jama Referring Provider Speciality Family Med icine Referred Organization [id number] [facility] Referred Provider TIN CORRAL Referred Address [address],[place], [place],[id number], Referred Provider Specialty Nurse Stephen xiong Referral Priority Routine Reason Breast Consult Referring Provider First Name JOVITA Referring Provider Last Name YELENA Referring Provider Speciality OB - Gynec ology Referred Organization [id number] [facility] Referred Provider MYA ESPARZA Referred Address [address],[place], [place],[address], Referral Priority Routine Medications Medication SIG (Take, Route, Frequency, Duration) Notes Start Date End Date Status Isosorbide Mononitrate ER 30 MG 1 tablet [...] UTH EVERY DAY Oral for 90 Active Albuterol Sulfate (2.5 MG/3ML) 0.083% 3 mL as needed Inhalation every 6 hrs Active Albuterol Sulfate HFA 108 (90 Base) MCG/ACT Inhalation for 25 Activ e Plavix 75 MG 1 tablet Orally Once a day Active Amlodipine Besylate 5 MG 1 tablet Orally Once a day Active Atorvastatin Calcium 20 MG 1 tablet Oral ly Once a day Active Toy-24 300 MG TAKE 1 CAPSULE BY MO UTH EVERY DAY Oral for 30 Active Budesonide 0.25 MG/2ML 2 mL Inhalation T wice a day Active Furosemide 40 MG TAKE 1 TABLET BY GAMA TH EVERY DAY Oral for 30 Active Tramadol HCl Active Immunizations Vaccine Route Administration Date Status Comme nts PNEUMOCOCCAL (Past vaccine o f unknown type) Unknown 02/26/2019 Administered Social History Tobacco Use: Social History Observation Description Date Details (start date - stop date) Former Smoker NA - NA Tobacco Status: Question Answer Notes Patient is a former smoker Problems Problem Type SNOMED Code ICD Code Onset Dates Problem Status W/U Status Risk Notes Problem 324100115 GERD (gastroesophagea l reflux disease) (K21.9) Active confirmed Problem 735875747 Anemia (D64.9) Active confirmed Problem 269238602 Morbid obesity (E66.01) Active confirmed Problem 04166755 IRINEO (obstructive sleep apnea) (G47.33) Active confirmed Problem Chronic kidney disease (465624658) Chronic kidney disease (N18.9) Active confirmed Problem 9202350 Arthritis (M19.90) Active confirmed Problem Gastric ulcer (586588436) Gastric ulcer (K25.9) Active confirmed Problem 48339989 CHEN (dyspnea on exertion) (R06.09) Active confirmed Problem 63027462 Hypertension, essential (I10) Active confirmed Problem Emphysema (27153322) Emphysema (J43.9) Active confirmed Problem 19418878 Chest pain, unspecified type (R07.9) Active confirmed Problem 440382866 Heart failure with preserved ejection fraction, unspecified HF chronicity (I50.30) Active confirmed Problem 88008581 Type 2 diabetes mellitus without complications, unspecified whether custodial insulin use (E11.9) Active confirmed Vital Signs Heart Rate 55 /min 04/29/2024 Oximetry 97 04/29/2024 Blood pressure diastolic 80 mm Hg 02/28/2025 Height 65 in 02/28/2025 Blood pressure systolic 126 mm Hg 02/28/2025 Weight 265 lbs 02/28/2025 BMI 44.09 kg/m2 02/28/2025 Encounters Encounter Location Date Provider Diagnosis [id number] [facility] [address] [place], [place] [id number] 04/29/2024 TIN CORRAL [id number] [facility] [place] [address] [place] [id number] 04/12/2024 PETE HAGNE [id number] [facility] [address] [place] [address] 02/28/2025 MYA VILMA 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 Limit consumption of foods that are irritating to the gut/ cause bloating and gas. Low FODMAP diet reviewed and handout given to patient 04/29/2024 History of adenomatous polyp of colon (ICD-10 - Z86.0101) Due for 3 year repeat ( prior 03/16/2022) colonoscopy 02/2025. 02/28/2025 Other I discussed the pathology results [...] of anesthesia including respiratory issues, DVT, PE, MO, stroke/. She agrees to proceed. off plavix 5 days prior to procedure. Plan Of Treatment Pending Test Test Name Order Date COLONOSCOPY ([id number]) 02/01/2022 Future Test Test Name Order Date CARDIAC SPECT MULT 2 DAY LEXISCAN CARDIO LITE (62638) 10/05/2022 Insurance Providers Payer Name Payer Address Payer Phone Subscriber Number Group Number Insured Name Patient Relationship to Insured Coverage Start Date Coverage End Date [employer] MEDICARE [address] [address] [place], [place] [id number] [phone] [id number] LORRAINE HICKS Self - patient is the insured Medications Administered Medication Instructions Date of Administration Dosage Notes Kenalog 08/31/2022 2 mL Kenalog 04/17/2023 2 mL Kenalog 11/15/2023 2 mL Medical (General) History Medical History History ICD Code Diabetes E11.9 Asthma J45.909 COPD (chronic obstructive pulmonary dise ase) J44.9 Anemia D64.9 Chronic kidney disease N18.9 Arthritis M19.90 Emphysema J43.9 GERD (gastroesophageal reflux disease) K 21.9 Gastric ulcer K25.9 MO Hyperlipidemia Sleep apnea - uses cpap Hypertension overweight Surgical History Surgery Date(Month/Year) knee arthroscopy - Left (spurs) shoulder surgery - Left (spuurs) hysterectomy-total Cholecystectomy Hospitalization History Reason Date(Month/Year) [facility] [place]
--- OUTSIDE RECORDS SUMMARY | 2025-04-05 20:24 | XMS_ITS | Patient Health Record ---
Author Organization [facility] Address [address] [place] [address] Care Team Providers Care Inspector [employer] Name Role Phone Pa Yun Primary Care Provider Unavailabl e Allergies Allergen (clinical drug ingredient) Drug/Non Drug Allergy documented on EMR Reaction Allergy Type Onset Date Status soy (uncoded) rash Allergy Active aspirin Aspirin Swelling of lips, and mouth Drug Allergy Active ibuprofen Ibuprofen kidney disease Drug Allergy Ac tive Reason For Referral No Information Medications Medication SIG (Take, Route, Frequency, Duration) Notes Start Date End Date Status Proventil HFA 108 (90 Base) MCG/ACT 2 puff(s) inhaled 4 times a day Active Ipratropium-Albuterol 0.5-2.5 (3) MG/3ML 3 mL inhaled 4 times a day Active Paxil 30 MG 1 tab(s) orally once a day Active Atorvastatin Calcium 40 MG 1 tablet Orally Once a day Active Lasix 40 MG 1 tablet Orally Once a day Active Nasacort Allergy 24HR 55 MCG/ACT 2 spray(s) intranasally once a day 09/01/2021 Active Lisinopril 40 MG 1 tab(s) orally once a day Active buPROPion HCl 100 MG 1 tab(s) orally once a day Active metFORMIN HCl 500 MG 1 tab(s) orally onc e a day (in the morning) Active Immunizations Vaccine Route Administration Date Status Comme nts Flu Vaccine (Given in Past) Unspecified Unknown 03/01/2021 Administered Flu Vaccine (Given in Past) Unspecified Unknown 03/01/2022 Administered leonard date Flu Vaccine (Given in Past) Unspecified Unknown 03/01/2023 Administered approx date Pneumonia ( Given in the Pas t) Unspecified Unknown 06/02/2022 Administered leonard date Pneumonia: Prevnar 20 Unknown 09/01/2021 Refused z2022 Fluzone Quad HIGH DOSE PFS (0.7 mL Admin) 65 y/o & older Unknown 09/01/2021 Refused Social History Tobacco Use: Social History Observation Description Date Details (start date - stop date) Never Smoker NA - NA Tobacco Use Question Answer Notes Are you a Never smoker Problems Problem Type SNOMED Code ICD Code Onset Dates Problem Status W/U Status Risk Notes Problem Acute exacerbation of chronic asthmatic bronchitis (580213820) Asthma exacerbation in COPD (493.22) Problem resolved confirmed Problem Diabetes mellitus without complication (641944433) Diabetes mellitus of other type without complication, unspecified whether jail insulin use (E13.9) Active confirmed Problem COPD - Chronic obstructive pulmonary disease (41100011) Chronic obstructive pulmonary disease, unspecified COPD type (J44.9) Active confirmed Problem Primary hypertension (79393202) Primary hypertension (I10) Active confirmed Problem Anxiety (42964590) Anxiety (F41.9) Active confirmed Problem COPD - Chronic obstructive pulmonary disease (23493704) COPD (chronic obstructive pulmonary disease) (J44.9) Active confirmed Problem Hypertension (31006545) Hypertension (I10) Active confirmed Problem Body mass index 40+ - severely obese (712719344) BMI 45.0-49.9, adult (Z68.42) Active confirmed Problem Dependence on supplemental oxygen (844440144298) Oxygen dependent (Z99.81) Active confirmed Problem Acute exacerbation of chronic obstructive airways disease (777198207) COPD with exacerbation (J44.1) Active confirmed Problem Hyperlipidemia (62023110) Hyperlipidemia (E78.5) Active confirmed Problem Depression (698723787) Depression (F32.A) Active confirmed Problem Diabetes mellitus (19298674) Diabetes mellitus (E11.9) Active confirmed Problem Asthma (923662510) Asthma (J45.909) Active confirmed Problem Essential hypertension (42272582) Elevated blood pressure reading with diagnosis of hypertension (I10) Active confirmed Problem Obese (127392433) Obese (E66.9) Active confirme d Problem Body mass index 40+ - severely obese (945293634) Body mass index [BMI] 45.0-49.9, adult (Z68.42) Active confirmed Problem Acute maxillary sinusitis (04107105) Acute non-recurrent maxillary sinusitis (J01.00) Active confirmed Problem Morbid obesity (226286094) Morbid obesity (E66.01) Active confirmed Plan Of Treatment No Information Insurance Providers Payer Name Payer Address Payer Phone Subscriber Number Group Number Insured Name Patient Relationship to Insured Coverage Start Date Coverage End Date [employer] [address] [address] [place] [phone] [id number] Ruma Vargas Self - patient is the insured Medical (General) History Medical History History ICD Code COPD (chronic obstructive pulmonary dise ase) J44.9 Asthma J45.909 Hypertension I10 Hyperlipidemia E78.5 Depression F32.A Diabetes mellitus E11.9 Surgical History Surgery Date(Month/Year) L Shoulder 1998 Lap Roxann 1989' Complete Hyst 1995 Hospitalization History Reason Date(Month/Year) copd with aspiration 2022 Vag Delivery 1969 See Above
[2025-04-05] MEDS: MONTELUKAST SODIUM 10MG TAB 10 MG PO (20:36)
--- NOTE | 2025-04-05 20:37 | PC.NURSE ---
1999- patient confused, sitting on side of bed attempting to get up, rocking upper body back and forth, patient is not answering orientation questions, when ask what she needs, patient doesnt know, patient had taken off BiPAP herself and SOA, gave PRN anxiety medication and placed BiPAP back on, patient grabbed at mask again, educated patient of need to wear the BiPAP, patient is resting at this time
[2025-04-05 22:46] LABS: Lactate Venous 1.1 mmol/L (0.4-2.0); VBG HCO3 35.3 mmol/L (23-30); VBG PH 7.41 mmol/L (7.31-7.41); VBG PO2 56.9 mmol/L (28-40)
[2025-04-05 22:50] LABS: VBG PCO2 56.5 mmol/L (35-51)
--- NOTE | 2025-04-05 23:03 | EXP.EVENT.NO ---
Patient on BiPAP overnight 11/11, FiO2 30%.Repeated patient's ABG overnight pH 7.41, pCO2 56.5, PaO2 56.9. This is in comparison to VBG done earlier showing pH 7.34, pCO2 71.9, PaO2 47. Patient doing well. Patient supposed to wear BiPAP at night. Will heavily encourage patient to continue BiPAP overnight with repeat VBG scheduled in AM. Hypercapnia resolving per VBG results.
[2025-04-06] VITALS (9 sets, daily range): BP systolic 121–132; BP diastolic 55–81; PULSE 65–88; RESP 12–16; TEMP 36.6–36.7; O2SAT 93–100; BMI 45.1
--- NOTE | 2025-04-06 03:43 | PC.NURSE ---
Alert to self, awakens easily to name. BiPAP in place this shift. No complaints from patient. Bed alarm on. Purewick in place. Call light in reach.
[2025-04-06 06:45] LABS: Lactate Venous 1.4 mmol/L (0.4-2.0); VBG HCO3 34.9 mmol/L (23-30); VBG PH 7.44 mmol/L (7.31-7.41); VBG PO2 110.7 mmol/L (28-40)
[2025-04-06 06:49] LABS: VBG PCO2 52.5 mmol/L (35-51)
[2025-04-06 06:50] LABS: Hematocrit 32.2 % (37.0-47.0); Hemoglobin 9.7 g/dL (12.2-16.2); Immature Granulocytes % 0.5 %; Mean Corpuscular HGB Conc 30.1 g/dL (31.8-35.4); Mean Corpuscular Hemoglobin 29.8 pg (27.0-31.2); Mean Corpuscular Volume 99.1 fl (81-99); Nucleated Red Blood Cells % 0 %; Platelet Count 195 K/mm3 (142-424); Red Blood Count 3.25 M/mm3 (4.20-5.40); Red Cell Distribution Width-SD 52.8 fL; White Blood Count 8.7 K/mm3 (4.8-10.8)
--- NOTE | 2025-04-06 06:51 | PC.NURSE ---
Fidencio Hoffman notified of critical VBG.
[2025-04-06 07:01] LABS: Anion Gap 9.5 mEq/L (5-15); Blood Urea Nitrogen 42 mg/dl (7-17); Calcium 9.1 mg/dl (8.4-10.2); Carbon Dioxide 35 mmol/L (22.0-30.0); Chloride 99 mmol/L (98-107); Creatinine Clearance Estimated 33 mL/min (50-200); Creatinine,Serum 1.20 mg/dl (0.52-1.04); Estimated Glomerular Filt Rate 43 ml/min (>60); GFR (African American) 53 ML/MIN (>60); Glucose 136 mg/dl (74-100); Potassium 4.5 mmoL/L (3.5-5.1); Sodium 139 mmol/L (136-145)
[2025-04-06 07:16] LABS: POC Glucose,Bedside 144 gm/dL (70-110)
[2025-04-06] MEDS: BUDESONIDE 0.5MG/2ML NEB 0.5 MG IH ×2 (07:25→18:08)
[2025-04-06] MEDS: IPRATROPIUM/ALBUTEROL 3 ML NEB IH ×4 (07:25→23:58)
[2025-04-06 08:24] LABS: Folate 12.70 ng/mL
[2025-04-06] MEDS: METHYLPREDNISOLONE SOD SUCC 40MG VIAL 40 MG IV (10:04)
[2025-04-06] MEDS: AZITHROMYCIN 250MG TABLET 250 MG PO (10:04)
[2025-04-06] MEDS: FUROSEMIDE 40MG/4ML VIAL 40 MG IV (10:04)
[2025-04-06] MEDS: PANTOPRAZOLE 40MG TABLET 40 MG PO ×2 (12:16→21:10)
[2025-04-06] MEDS: MEMANTINE 10MG TABLET 5 MG PO ×2 (12:16→21:10)
[2025-04-06] MEDS: PARoxetine 20MG TABLET 40 MG PO (12:16)
[2025-04-06] MEDS: CLOPIDOGREL 75MG TAB 75 MG PO (12:16)
[2025-04-06] MEDS: LEVOFLOXACIN/D5W 750 MG/150 ML 750 MG/150 ML PIGGYBACK 100 MG IV (12:17)
[2025-04-06] MEDS: POLYETHYLENE GLYCOL 3350 17 GM PACKET PO (12:17)
[2025-04-06] MEDS: PREGABALIN 25MG CAPSULE 75 MG PO ×2 (12:21→21:10)
[2025-04-06 12:50] LABS: POC Glucose,Bedside 120 gm/dL (70-110)
[2025-04-06 16:02] LABS: POC Glucose,Bedside 139 gm/dL (70-110)
[2025-04-06] MEDS: ONDANSETRON 4MG/2ML VIAL 4 MG IV (16:33)
--- NOTE | 2025-04-06 16:43 | PC.NURSE ---
PT IS SITTING UP IN THE CHAIR. ALERT TO SELF/PLACE ONLY. PT HAS BEEN CONFUSED T/O THE SHIFT. SPEECH HAS BEEN VERY CHILDLIKE T/O THE SHIFT. PT HAS BEEN CALLING STAFF MOMKEYANNA . WHEN PT YELLS OUT TO GO TO THE BATHROOM SHE STATES ME GOT TO GO PEE PEE . 2 ASSIST TO GET OOB TO BSC. DIFFICULT TIME WITH FOLLOWING COMMANDS. AT ONE POINT WHEN STAFF WAS ASSISTING PT TO BSC SHE CURSED AT STAFF AND ATTEMPTED TO HIT. AFTER TALKING WITH PT'S DAUGHTER OVER THE PHONE THIS SHIFT SHE STATED THAT HER MOTHER STARTED WITH WHAT SHE SHE DESCRIBED THE OFF AND ON BABY TALK 3 WEEKS AGO AFTER SHE FELL BACK AND HIT THE BACK OF HER HEAD ON CONCRETE. ACCORDING TO DAUGHTER WHEN PT WAS AT [facility] THEY DID PERFORM A HEAD CT AND MRI. HOSPITALIST MADE AWARE OF PT'S BEHAVIOR AND WHAT PT'S DAUGHTER REPORTED TO STAFF. PT HAD TO BE ASSISTED WITH ALL MEALS THIS SHIFT. LUNG SOUNDS DIMINISHED. ABDOMEN SOFT/NON TENDER WITH ACTIVE BOWEL SOUNDS. BATH AND PARTIAL LINEN CHANGE THIS SHIFT. O2 SATURATION HAS MAINTAINED 90-96% ON 2 L NC. WILL CONTINUE TO MONITOR.
--- NOTE | 2025-04-06 18:03 | P.PN_ITS ---
Subjective *Date: 04/06/25 *Time: 18:03 Interval history: Patient was agitated, confused this morning. Transitioned to levofloxacin for pneumonia, restarted some home medications. Encephalopathy/confusion improved later into the afternoon. Hold BiPAP tonight, follow-up morning VBG. Exam Data for Last 24 hours Vital signs and Labs for Last 24 Hours: Temp Pulse Resp BP Pulse Ox O2 Del Method O2 Flow Rate 97.9 F 70 12 132/59 L 98 Nasal Cannula 2 04/06/25 16:00 04/06/25 16:00 04/06/25 16:00 04/06/25 16:00 04/06/25 16:00 04/06/25 16:29 04/06/25 16:29 FiO2 30 04/05/25 23:41 Laboratory Results - last 24 hr 04/05/25 18:00: VBG pH 7.34, VBG pCO2 71.9 H, VBG pO2 47.0 H, VBG HCO3 37.7 H, VBG Total CO2 39.9 H, VBG O2 Saturation 80.9 H, VBG Base Excess 11.8 H, VBG Lactic Acid 1.8 04/05/25 18:01: POC Glucose 195 H 04/05/25 19:54: POC Glucose 201 H 04/05/25 22:16: VBG pH 7.41, VBG pCO2 56.5 H, VBG pO2 56.9 H, VBG HCO3 35.3 H, VBG Total CO2 37.1 H, VBG O2 Saturation 90.6 H, VBG Base Excess 10.8 H, VBG Lactic Acid 1.1 04/06/25 06:33: WBC 8.7, RBC 3.25 L, Hgb 9.7 L, Hct 32.2 L, MCV 99.1 H, MCH 29.8, MCHC 30.1 L, RDW 14.6, Plt Count 195, MPV 10.3, Neut % (Auto) 89.3 H, Lymph % (Auto) 6.8 L, Randall % (Auto) 3.3, Eos % (Auto) 0.0 L, Baso % (Auto) 0.1, Neut # (Auto) 7.8, Lymph # (Auto) 0.6 L, Randall # (Auto) 0.3, Eos # (Auto) 0.0, Baso # (Auto) 0.0, VBG pH 7.44 H, VBG pCO2 52.5 H, VBG pO2 110.7 H, VBG HCO3 34.9 H, VBG Total CO2 36.5 H, VBG O2 Saturation 98.0 H, VBG Base Excess 10.8 H, VBG Lactic Acid 1.4, Sodium 139, Potassium 4.5, Chloride 99, Carbon Dioxide 35 H , Anion Gap 9.5, BUN 42 H, Creatinine 1.20 H, Estimated Creat Clear 33, Estimated GFR 43 L, Est GFR ( Amer) 53 L, Glucose 136 H, Calcium 9.1, Folate 12.70 04/06/25 06:57: POC Glucose 144 H 04/06/25 12:14: POC Glucose 120 H 04/06/25 15:45: POC Glucose 139 H I & O for Last 24 hours: Intake & Output 04/03/25 04/04/25 04/05/25 04/06/25 23:59 23:59 23:59 23:59 Intake Total 660 / 960 620 / 620 Output Total 950 / 950 1250 / 1250 Balance -290 / 10 -630 / -630 Weight 117.934 kg 123.559 kg 122.787 kg Microbiology Reports for the Last 24 Hours: Microbiology 04/05/25 06:30 Blood Blood Culture - Preliminary NO GROWTH AFTER 24 HOURS 04/05/25 06:30 Blood Blood Culture - Preliminary NO GROWTH AFTER 24 HOURS 04/04/25 21:50 Urine,Clean Catch Urine Culture - Preliminary Constitutional Constitutional: no acute distress, obese and chronically ill appearing *Routine HEENT Exam Head: Present normocephalic Eye: Present EOMI and PERRL ENT: Present mucous membranes moist *Routine Neck Exam Neck: Present supple; Absent lymphadenopathy *Routine Respiratory Exam Respiratory: Present CTA bilaterally *Routine Cardiovascular Exam Cardiovascular: Present RRR *Routine Abdominal Exam Abdominal: Present soft and normoactive bowel sounds; Absent tenderness *Routine Extremities Exam Extremities: Absent cyanosis, clubbing or edema *Routine Skin Exam Skin: Present warm; Absent rash *Routine Neurological Exam Neurological: Present alert Assessment and Plan *Assessment and plan (1) Morbid obesity: Status: Acute Category: Medical Code(s): E66.01 - Morbid (severe) obesity due to excess calories (2) Acute respiratory failure with hypercapnia: Status: Acute Category: Medical Code(s): J96.02 - Acute respiratory failure with hypercapnia Plan Ruma Vargas is a 79-year-old female with a medical history significant for morbid obesity, IRINEO on CPAP nightly, COPD, HFpEF, mood disorder, anxiety/depression and recent fall of the head 3 weeks ago presented [place] [facility] due to altered mentation and shortness of breath. Found to have acute on chronic hypercapnic respiratory failure and initiated on BiPAP therapy in the setting of community-acquired pneumonia, and weaned to nasal cannula. Problems as outlined above: #Acute on chronic hypercapnic respiratory failure #Chronic hypoxic respiratory failure, 2 L #Community-acquired pneumonia #Acute metabolic encephalopathy #Recent fall on head #COPD ? Presented from [facility] due to altered mental status, shortness of breath. CTA chest on admission suggestive of left sided pneumonia. ? Initial WBC 11.4, improved to 8.7 today. No signs of sepsis. ? Encephalopathy slowly improving, patient has been intermittently agitated and confused. ? Continues to have childlike behavior, calling nursing staff mommy and disinhibition of thought. Apparently started 3 weeks ago after a fall in the head. Head CT prior to admission did not show acute findings. ? Continue DuoNebs every 6 hours, Pulmicort twice daily. Solu-Medrol discontinued as no airway restriction today. ? Switched to levofloxacin 750 mg every 48 hours due to minimal improvement encephalopathy prior to today, discontinued ceftriaxone, azithromycin. Patient mentation closer to baseline today. ? VBG reassuring this morning. No acute hypercapnia. ? Hold BiPAP tonight, follow-up morning VBG. ? Pulmonology consulted, pending further recommendations. ? PT/OT consulted, recommend SNF. Case management assisting with transitioning to SNF at [facility]. #HFpEF exacerbation ? Presented with shortness of breath, lower extremity edema, BNP elevated to 3180. ? Continue IV Lasix 40 mg daily, Farxiga 10 mg. Diuresing well. #Obstructive sleep apnea ? Continue CPAP nightly. #Hypertension ? Hold home lisinopril, amlodipine due to stable pressures. #Mood disorder ? Continue home paroxetine 40 mg, BuSpar 15 mg. #Dementia ? Continue home memantine 5 mg twice daily. #Peripheral neuropathy ? Reduce home pregabalin to 75 mg twice daily due to encephalopathy. #GERD ? Continue home PPI. Full code DVT prophylaxis, Lovenox 40 mg twice daily Home medications: Restarted, holding few as above.
[2025-04-06 20:39] LABS: POC Glucose,Bedside 139 gm/dL (70-110)
[2025-04-06] MEDS: MONTELUKAST SODIUM 10MG TAB 10 MG PO (21:10)
--- NOTE | 2025-04-06 22:15 | PC.NURSE ---
RESP CARE NOTE: Attempted to place pt on bipap for the night but pt currently refusing. I will give pt some time and try again after her next breathing treatment.
[2025-04-07] VITALS (8 sets, daily range): BP systolic 117–150; BP diastolic 50–65; PULSE 57–100; RESP 14–29; TEMP 36.3–36.6; O2SAT 95–100; BMI 44.1
[2025-04-07 05:58] LABS: Hematocrit 29.8 % (37.0-47.0); Hemoglobin 9.1 g/dL (12.2-16.2); Immature Granulocytes % 0.6 %; Lactate Venous 0.9 mmol/L (0.4-2.0); Mean Corpuscular HGB Conc 30.5 g/dL (31.8-35.4); Mean Corpuscular Hemoglobin 29.7 pg (27.0-31.2); Mean Corpuscular Volume 97.4 fl (81-99); Nucleated Red Blood Cells % 0 %; Platelet Count 177 K/mm3 (142-424); Red Blood Count 3.06 M/mm3 (4.20-5.40); Red Cell Distribution Width-SD 54.7 fL; VBG HCO3 34.8 mmol/L (23-30); VBG PH 7.43 mmol/L (7.31-7.41); VBG PO2 157.9 mmol/L (28-40); White Blood Count 6.6 K/mm3 (4.8-10.8)
[2025-04-07 06:00] LABS: VBG PCO2 53.9 mmol/L (35-51)
[2025-04-07 06:09] LABS: Chloride 95 mmol/L (98-107); Sodium 140 mmol/L (136-145)
[2025-04-07 06:10] LABS: Potassium 4.4 mmoL/L (3.5-5.1)
[2025-04-07 06:13] LABS: Calcium 8.6 mg/dl (8.4-10.2); Glucose 114 mg/dl (74-100)
[2025-04-07 06:17] LABS: Blood Urea Nitrogen 41 mg/dl (7-17)
--- NOTE | 2025-04-07 06:20 | PC.NURSE ---
pt has been alert and oriented x3 and slept well t/o shift. assist x1 to the bsc. cb within reach and bed alarm on for pt safety
[2025-04-07 06:33] LABS: POC Glucose,Bedside 125 gm/dL (70-110)
[2025-04-07 06:36] LABS: Carbon Dioxide 44 mmol/L (22.0-30.0)
[2025-04-07 06:39] LABS: Anion Gap 9.4 mEq/L (5-15)
[2025-04-07 06:52] LABS: Creatinine Clearance Estimated 33 mL/min (50-200); Creatinine,Serum 1.20 mg/dl (0.52-1.04); Estimated Glomerular Filt Rate 43 ml/min (>60); GFR (African American) 53 ML/MIN (>60)
[2025-04-07] MEDS: BUDESONIDE 0.5MG/2ML NEB 0.5 MG IH (06:55)
[2025-04-07] MEDS: IPRATROPIUM/ALBUTEROL 3 ML NEB IH (06:55)
[2025-04-07] MEDS: HYDROCODONE/APAP 5/325 MG TABLET 1 TAB PO (08:09)
[2025-04-07] MEDS: MEMANTINE 10MG TABLET 5 MG PO (08:10)
[2025-04-07] MEDS: CLOPIDOGREL 75MG TAB 75 MG PO (08:11)
[2025-04-07] MEDS: PANTOPRAZOLE 40MG TABLET 40 MG PO (08:11)
[2025-04-07] MEDS: PARoxetine 20MG TABLET 40 MG PO (08:12)
[2025-04-07] MEDS: FUROSEMIDE 40MG/4ML VIAL 40 MG IV (08:13)
[2025-04-07] MEDS: DAPAGLIFLOZIN PROPANEDIOL 10 MG TABLET PO (08:13)
[2025-04-07] MEDS: PREGABALIN 25MG CAPSULE 75 MG PO (08:13)
[2025-04-07] MEDS: POLYETHYLENE GLYCOL 3350 17 GM PACKET PO (08:14)
--- NOTE | 2025-04-07 08:23 | SW/DCPLANNER ---
Addendum entered by Kamilla Rajput 04/07/25 12:28: Per daughter [facility] has already set up outpatient PT services due to expected discharge today. Addendum entered by Kamilla Rajput 04/07/25 11:19: After lengthy discussion w/ daughter and patient the decision was made for patient to return home w/ daughter and complete outpatient PT services. Daughter is not interested in home health services at this time. Daughter is aware that patient is medically stable for discharge today. Addendum entered by Kamilla Rajput 04/07/25 09:44: Patient prefers to return home once medically stable and stated that she lives w/ her daughter Roxanna. I did call and discuss discharge planning w/ Roxanna. Roxanna stated that she will be at bedside today and would like to speak w/ patient regarding returning to [facility] vs home. I will continue to follow up. Original Note: Patient currently resides at [facility] level of care but per Cristopher auth ended 04/06 and will require a new auth if planning to return. Updated patient information has been faxed to Cristopher hoffman/ Ch[facility]cios. Discharge date is unknown at this time. CM will continue to follow up.
--- NOTE | 2025-04-07 09:00 | CA_ITS ---
APPROVED REPORT EXAM: Comprehensive 2D, Doppler, and color-flow Echocardiogram Test Lead: Itzel Chaves CRT Ht: 5 ft 5 in Wt: 260lbs BSA: 2.21 BP: 151/65 mmHg Indications: COPD, Shortness of Breath, Diabetes, Hypertension/HDD, respiratory failure, pneumonia 2D Dimensions LA Volume 77.70 mL LA Volume Index 34.20 mL/m2 (M/F) 16-34 M-Mode Dimensions RVDd 2.62 cm (0.9-2.6) LA Diam 4.67 cm (1.9-4.0) LVDd 5.62 cm (3.5-5.7) LVDs 4.14 cm (3.5-5.7) IVSd 1.18 cm (0.6-1.1) PWd 1.23 cm (0.6-1.1) EF (Teich) 51.00% FS 26.30% EDV (Teich) 154.90 mL TAPSE 2.54 (<1.7) ESV (Teich) 75.90 mL LV Diastology E Decel Time 220 (160-240 msec) E/A Ratio 1.19 MED A' 12.60 cm/s LAT A' 9.10 cm/s Aortic Valve AO Peak GR. 10.40 mmHg Mitral Valve MV E Max Bebeto. 130.0 (40-130 cm/s) MV A Velocity 110.0 (40-130 cm/s) E/A Ratio 1.19 MV PHT 64.0 ms Pulmonary Valve PV Peak Velocity 92.0 (50-150 cm/s) Tricuspid Valve TR P. Velocity 201.00 cm/s RAP Estimate 10.00 mmHg RVSP 26.20 mmHg Left Ventricle The left ventricle is normal size. Left ventricular systolic function is normal. The left ventricular ejection fraction is within the normal range. There is increased left ventricular wall thickness. There is normal LV segmental wall motion. The left ventricular diastolic function is normal. LVEF is 55%. Right Ventricle The right ventricle is moderately dilated. The right ventricular systolic function is mildly reduced. Atria The left atrium is moderately dilated. The right atrium is mildly dilated. There is no color Doppler evidence of interatrial shunt. Aortic Valve The aortic valve is mildly thickened. There is no hemodynamically significant aortic valvular stenosis. Trace aortic regurgitation is present. Mitral Valve The mitral valve is mildly thickened. No evidence of mitral valve stenosis. Moderate mitral regurgitation is present. The MR jet is eccentric and may be underestimated on TTE. Tricuspid Valve The tricuspid valve leaflets are thin and pliable. Trace tricuspid regurgitation. There is insufficient TR jet to estimate RVSP. Pulmonic Valve The pulmonary valve is grossly normal in structure. Trace pulmonic valve regurgitation is present. Great Vessels The aortic root is normal in size. IVC is normal in size and collapses >50% with inspiration. Pericardium Trivial, anterior pericardial effusion. No echo indications of tamponade. Other Information Study Quality: Technically Difficult Conclusion Normal biventricular systolic function. Moderate RV dilation with mild reduction in RV function. Biatrial dilation. Moderate MR (eccentric jet, may be underestimated on TTE). Trivial, anterior pericardial effusion. No echo indications of tamponade. Electronically signed by : Vi Aaron MD 04/07/2025 11:58:10
--- NOTE | 2025-04-07 09:42 | HMH.OTEV ---
OT Evaluation Rehab OT IP Evaluation Start: 04/05/25 02:01 Freq: ONCE Status: Active Protocol: Document 04/07/25 09:34 CASSIE (Rec: 04/07/25 09:42 CASSIE [id number]) Rehab OT IP Assessment Subjective History Per *History of present illness: This is a 79-year-old morbid obese female who has a past medical history significant for anxiety, hypertension, type 2 diabetes, CO2 retention, and COPD who presents from [facility] with a chief complaint of shortness of air and altered mental status. Due to the patient's symptoms, she was transition to [facility]. It was noted that patient's oxygen saturation at a seated rate was 60%. Patient presented here and her pCO2 was in the 80s with her pH 7.2. She was placed on BiPAP. Hospital medicine was consulted for further management. During my evaluation of the patient, she reports that she has been having shortness of air for at least the past 1 to 2 days. She reports having some increased swelling to her lower extremities. Patient is alert but not fully oriented. She is currently denying any chest pain, lightheadedness, dizziness, fever, chills, rigors, nausea, vomiting, or diarrhea. Pertinent vitals obtained in emergency room include a temperature of 100.1, CT scan of the chest revealed mild perihilar left lower lobe infiltrate concerning for acute pneumonitis/bronchitis and small area of parenchymal opacity in the lingula may represent gland atelectasis or pneumonia, white blood cell count is 11.4, red blood cell count was 3.27, hemoglobin was 9.8, hematocrit 33 , neutrophils 82.3%, pH of 7.29, pCO2 of 80.4, pO2 of 51, pCO2 of 38.1, chloride of 97, carbon dioxide was greater than 40, BUN of 37, creatinine 1.20, GFR 43, blood glucose 122, AST of 53, and BNP of 3180. Subjective Oh I know them!. Pt sitting on EOB when therapy entered room. Pt agreed to OT eval this AM. Pt reported they live with daughter in home with 2 steps to enter w/ no HRs. Pt reported they are Ind in ADLs and IADLs, however daughter will assist some when needed. Pt reported they are able to cook own meals. pt reported they are normally on O2 24/7. Pt reported no falls within past 30 days. pt reported they still drive. Pt reported they use a cane for FM. pt reported they have SC and grab bars. Pt reported they needed to use bathroom. Pt able to complete STS with walker with CGA. Pt able to complete FM task with walker and CGA, for safety, of 4 ft to bedside commode and reach back using good body mechanics and safety. pt reported they needed to stay on bedside commode for a couple minutes. Nursing was notified and pt was left on bedside commode with call light and all other needs within reach. CM was notified of pt's improvement since this weekend. PT also reported that pt has improved since initial PT eval. Objective Patient Orientation Person,Place,Birthday Left Upper Extremity WFL Gross ROM Bed Mobility bed mobility-scooting,bed mobility - supine/sit Assist Level Supervision/Stand by Transfer Training Sit/Stand Transfer Assist Level Contact Guard/Hand Hold Chair Transfer Sit to/from Ambulatory Technique Overall Commode/ Contact Guard Toilet Transfer Ability Commode/Toilet Sit to/from Ambulatory Transfer Technique Decrease in No Endurance Rehab OT IP prob,goals,plan Problems Date of Evaluation: 04/07/25 Rehab Potential Rehab Potential Innapropriate for Skilled Therapy Equipment Needs Assistive Devices Straight Cane,Rolling / Wheeled Walker Discharge Plan OT Discharge Plan At this time, pt presents at baseline and would not benefit from skilled acute OT services while admitted at [facility]. Once medically stable, pt can go home with 24/7 care if pt continues to improve. If needed, pt could benefit from OT HH services to address QOL and improve Ind in self-care and ADL and IADL completion. Eval Complexity Eval Charge Codes 34085 - Moderate Complexity PHYSICIAN CERTIFICATION: I certify the specified therapy services for Ruma Vargas are required, authorized, and reviewed every 30 days.
--- NOTE | 2025-04-07 10:03 | EXP.PULM.CON ---
History of Present Illness History of present illness: Ms. Thomas is a 79-year-old female with greater than [id number] smoking history last more greater than 25 years ago as per the patient at baseline using albuterol inhaler on as-needed basis, not using any oxygen supplementation, history of sleep apnea refused to use CPAP therapy, reported history of anxiety hypertension history of COPD hypercarbic respiratory failure presented today with worsening mentation and shortness of breath and pulmonary was called for further evaluation. [facility] Disclaimer: The information contained in this section may have been updated after the patient was seen, as this information can be updated by other users. Medical History Diverticul disease small and large intestine, no perforati or abscess Anxiety Hypertension Hyperosmolality and hypernatremia Type 2 diabetes mellitus Morbid (severe) obesity due to excess calories Hypercapnia COPD (chronic obstructive pulmonary disease) Acute kidney failure Metabolic encephalopathy Social History (Updated 04/05/25 @ 02:03 by Jannet Bowen RN) Smoking Status: Never smoker alcohol intake: never current occupational status: retired Travel in the last 8 weeks?: None Have you lived/traveled outside [place] in past 30 days?: No Contact w/someone who lives/traveled outside [place] past 30 days?: No Exposure to someone with infectious disease in past 14 days?: No Do you have a fever (greater than 100.4 F or 38 C)?: No Have you tested positive for COVID-19?: No Exposed to someone with COVID-19 in past 14 days?: No Do you have a sore throat?: No Do you have a cough?: No Do you have any weakness?: No Do you have any diarrhea?: No Are you experiencing any unusual bleeding?: No Do you have any muscle aches/pain?: No Do you have any abdominal pain?: No Are you experiencing loss of taste or smell?: No Review of Systems Constitutional Constitutional: Reports anorexia, Reports body ache(s) and Reports fatigue Eyes Eyes: Denies eye discharge, Denies dry eyes, Denies irritation and Denies itchy eyes ENT Ears, Nose, Mouth, and Throat: Denies epistaxis, Denies facial pain, Denies lip swelling and Denies throat swelling *Cardiovascular Cardiovascular: Reports dyspnea and Reports dyspnea on exertion *Respiratory Respiratory: Denies change in phlegm color, Reports chest congestion, Reports cough, Reports dyspnea, Reports dyspnea on exertion, Reports excessive phlegm production, Denies hemoptysis, Denies pain on inspiration, Denies pain with cough and Reports wheezing *Gastrointestinal Gastrointestinal: Denies abdominal pain, Denies belching and Denies cramping *Musculoskeletal Musculoskeletal: Reports back pain, Reports myalgias and Reports other (No small joint swelling or Pain) *Neurologic Neurologic: Reports system reviewed and no additional complaints, except as documented and Reports confusion Psychiatric Psychiatric: Reports confusion Endocrine Endocrine: Reports fatigue and Denies heat intolerance Hematologic/Lymphatic Hematologic/Lymphatic: Denies easy bleeding and Denies lymphadenopathy Allergic/Immunologic Allergic/Immunologic: Denies itchy eyes, Denies lip swelling, Denies throat swelling and Reports wheezing Pulmonology Exam Inpatient Vital signs and Labs for Last 24 Hours: Temp Pulse Resp BP Pulse Ox O2 Del Method O2 Flow Rate 97.8 F 64 16 150/65 H 95 Nasal Cannula 2 04/07/25 08:00 04/07/25 08:00 04/07/25 08:00 04/07/25 08:00 04/07/25 08:00 04/07/25 08:00 04/07/25 08:00 FiO2 30 04/07/25 02:09 Laboratory Results - last 24 hr 04/06/25 12:14: POC Glucose 120 H 04/06/25 15:45: POC Glucose 139 H 04/06/25 20:26: POC Glucose 139 H 04/07/25 05:26: WBC 6.6, RBC 3.06 L, Hgb 9.1 L, Hct 29.8 L, MCV 97.4, MCH 29.7, MCHC 30.5 L, RDW 15.3, Plt Count 177, MPV 9.8, Neut % (Auto) 74.1, Lymph % (Auto) 15.5, Dunn % (Auto) 9.1, Eos % (Auto) 0.5, Baso % (Auto) 0.2, Neut # (Auto) 4.9, Lymph # (Auto) 1.0, Dunn # (Auto) 0.6, Eos # (Auto) 0.0, Baso # (Auto) 0.0, VBG pH 7.43 H, VBG pCO2 53.9 H, VBG pO2 157.9 H, VBG HCO3 34.8 H, VBG Total CO2 36.5 H, VBG O2 Saturation 98.9 H, VBG Base Excess 10.5 H, VBG Lactic Acid 0.9, Sodium 140, Potassium 4.4, Chloride 95 L, Carbon Dioxide 44 H*, Anion Gap 9.4, BUN 41 H, Creatinine 1.20 H, Estimated Creat Clear 33, Estimated GFR 43 L, Est GFR ( Amer) 53 L, Glucose 114 H, Calcium 8.6 04/07/25 06:14: POC Glucose 125 H I & O for Labs for Last 24 Hours: Intake & Output 04/04/25 04/05/25 04/06/25 04/07/25 23:59 23:59 23:59 23:59 Intake Total 660 / 960 760 / 760 540 / 540 Output Total 950 / 950 1800 / 1800 400 / 400 Balance -290 / 10 -1040 / -1040 140 / 140 Weight 260 lb 272 lb 6.4 oz 270 lb 11.2 oz 265 lb 3.2 oz Microbiology Reports for the Last 24 Hours: Microbiology 04/05/25 03:30 Nose MRSA Culture - Final Negative 04/04/25 21:50 Urine,Clean Catch Urine Culture - Final Multiple organisms, suggests contamination. 04/05/25 06:30 Blood Blood Culture - Preliminary NO GROWTH AFTER 48 HOURS 04/05/25 06:30 Blood Blood Culture - Preliminary NO GROWTH AFTER 48 HOURS Constitutional: Present moderate distress Head: Present normocephalic and atraumatic ENT: Present normal exam, normal oropharynx and mucous membranes moist Neck: Present normal inspection and full ROM Respiratory: Present respiratory distress, wheezes and able to speak in complete sentences; Absent diminished air movement Cardiac: Present S1/S2, Tachycardia and radial pulses present GI: Present soft and distention; Absent tenderness or guarding Rectal (female): Present deferred (female): Present deferred Skin: Present intact; Absent cyanosis or jaundice Neuro: Present alert, awake and oriented x 3 Extremities: Present normal inspection; Absent clubbing or cyanosis Psychiatric: Present normal affect and cooperative Meds Home Medications and Allergies Home Medications ?Medication ?Instructions ?Recorded ?Confirmed ?Type lidocaine 5 % topical patch 1 patch topical DAILY 04/04/25 04/05/25 History lisinopril 20 mg tablet 20 mg PO DAILY 04/04/25 04/05/25 History meclizine 25 mg tablet 25 mg PO TIDP PRN Dizziness 04/04/25 04/05/25 History memantine 5 mg tablet 5 mg PO BID 04/04/25 04/05/25 History metformin 500 mg tablet 500 mg PO DAILY 04/04/25 04/05/25 History methocarbamol 500 mg tablet 500 mg PO Q8HP PRN Muscle Pain 04/04/25 04/05/25 History ondansetron 4 mg disintegrating 4 mg PO Q6HP PRN Nausea And 04/04/25 04/05/25 History tablet Vomiting pantoprazole 40 mg tablet,delayed 40 mg PO BID 04/04/25 04/05/25 History release paroxetine HCl 40 mg tablet 40 mg PO DAILY 04/04/25 04/05/25 History pregabalin 150 mg capsule (Lyrica) 150 mg PO BID 04/04/25 04/05/25 History propranolol 60 mg capsule,24 60 mg PO DAILY 04/04/25 04/05/25 History hr,extended release theophylline 300 mg 300 mg PO DAILY 04/04/25 04/05/25 History tablet,extended release,12 hr acetaminophen 500 mg tablet 1,000 mg PO Q8HP PRN Mild Pain 04/05/25 04/05/25 History (Scale Score 1-4) albuterol sulfate 2.5 mg/3 mL 2.5 mg inhalation TID 04/05/25 04/05/25 History (0.083 %) solution for nebulization amlodipine 5 mg tablet 5 mg PO DAILY 04/05/25 04/05/25 History atorvastatin 80 mg tablet 80 mg PO HS 04/05/25 04/05/25 History budesonide 0.5 mg/2 mL suspension 0.5 mg inhalation DAILY 04/05/25 04/05/25 History for nebulization buspirone 7.5 mg tablet 15 mg PO DAILY 04/05/25 04/05/25 History clopidogrel 75 mg tablet 75 mg PO DAILY 04/05/25 04/05/25 History dapagliflozin propanediol 10 mg 10 mg PO DAILY 04/05/25 04/05/25 History tablet (Farxiga) formoterol fumarate 20 mcg/2 mL 2 ml inhalation BID 04/05/25 04/05/25 History solution for nebulization furosemide 40 mg tablet 40 mg PO DAILY 04/05/25 04/05/25 History oxybutynin chloride 10 mg 10 mg PO DAILY 04/05/25 04/05/25 History tablet,extended release 24 hr polyethylene glycol 3350 17 gram 17 g PO DAILYP PRN Constipation 04/05/25 04/05/25 History oral powder packet (Miralax) New Prescriptions to Start Prescriptions: Allergies Allergy/AdvReac Type Severity Reaction Status Date / Time No Known Allergies Allergy Verified 04/05/25 01:43 Results Laboratory Findings 04/07/25 05:26 04/07/25 05:26 Abnormal lab findings: Abnormal Labs 04/04/25 04/05/25 04/05/25 21:31 01:30 06:13 WBC 11.4 H RBC 3.27 L Hgb 9.8 L Hct 33.0 L MCV 100.9 H MCHC 29.7 L Neut % (Auto) 82.3 H Lymph % (Auto) 7.1 L Dunn % (Auto) Eos % (Auto) Neut # (Auto) 9.4 H Lymph # (Auto) Dunn # (Auto) VBG pH 7.29 L VBG pCO2 80.4 H 58.1 H VBG pO2 51.0 H 44.4 H VBG HCO3 38.1 H 34.1 H VBG Total CO2 40.6 H 35.8 H VBG O2 Saturation 83.8 H 83.1 H VBG Base Excess 11.6 H 9.0 H Chloride 97 L Carbon Dioxide > 40 H* BUN 37 H Creatinine 1.20 H Estimated GFR 43 L Est GFR ( Amer) 53 L Glucose 122 H POC Glucose 150 H AST 53 H C-Reactive Protein NT-Pro-B Natriuret Pep 3180 H 04/05/25 04/05/25 04/05/25 06:30 07:00 10:00 WBC RBC 3.03 L Hgb 9.1 L Hct 31.1 L MCV 102.6 H MCHC 29.3 L Neut % (Auto) Lymph % (Auto) 9.7 L Dunn % (Auto) 11.1 H Eos % (Auto) Neut # (Auto) Lymph # (Auto) Dunn # (Auto) 1.1 H VBG pH VBG pCO2 62.3 H VBG pO2 VBG HCO3 34.2 H VBG Total CO2 36.2 H VBG O2 Saturation VBG Base Excess 8.8 H Chloride Carbon Dioxide 37 H BUN 34 H Creatinine 1.30 H Estimated GFR 40 L Est GFR ( Amer) 48 L Glucose 120 H POC Glucose AST C-Reactive Protein 19.8 H NT-Pro-B Natriuret Pep 04/05/25 04/05/25 04/05/25 16:06 18:00 18:01 WBC RBC Hgb Hct MCV MCHC Neut % (Auto) Lymph % (Auto) Dunn % (Auto) Eos % (Auto) Neut # (Auto) Lymph # (Auto) Dunn # (Auto) VBG pH VBG pCO2 71.9 H VBG pO2 47.0 H VBG HCO3 37.7 H VBG Total CO2 39.9 H VBG O2 Saturation 80.9 H VBG Base Excess 11.8 H Chloride Carbon Dioxide BUN Creatinine Estimated GFR Est GFR ( Amer) Glucose POC Glucose 251 H 195 H AST C-Reactive Protein NT-Pro-B Natriuret Pep 04/05/25 04/05/25 04/06/25 19:54 22:16 06:33 WBC RBC 3.25 L Hgb 9.7 L Hct 32.2 L MCV 99.1 H MCHC 30.1 L Neut % (Auto) 89.3 H Lymph % (Auto) 6.8 L Dunn % (Auto) Eos % (Auto) 0.0 L Neut # (Auto) Lymph # (Auto) 0.6 L Dunn # (Auto) VBG pH 7.44 H VBG pCO2 56.5 H 52.5 H VBG pO2 56.9 H 110.7 H VBG HCO3 35.3 H 34.9 H VBG Total CO2 37.1 H 36.5 H VBG O2 Saturation 90.6 H 98.0 H VBG Base Excess 10.8 H 10.8 H Chloride Carbon Dioxide 35 H BUN 42 H Creatinine 1.20 H Estimated GFR 43 L Est GFR ( Amer) 53 L Glucose 136 H POC Glucose 201 H AST C-Reactive Protein NT-Pro-B Natriuret Pep 04/06/25 04/06/25 04/06/25 06:57 12:14 15:45 WBC RBC Hgb Hct MCV MCHC Neut % (Auto) Lymph % (Auto) Dunn % (Auto) Eos % (Auto) Neut # (Auto) Lymph # (Auto) Dunn # (Auto) VBG pH VBG pCO2 VBG pO2 VBG HCO3 VBG Total CO2 VBG O2 Saturation VBG Base Excess Chloride Carbon Dioxide BUN Creatinine Estimated GFR Est GFR ( Amer) Glucose POC Glucose 144 H 120 H 139 H AST C-Reactive Protein NT-Pro-B Natriuret Pep 04/06/25 04/07/25 04/07/25 20:26 05:26 06:14 WBC RBC 3.06 L Hgb 9.1 L Hct 29.8 L MCV MCHC 30.5 L Neut % (Auto) Lymph % (Auto) Dunn % (Auto) Eos % (Auto) Neut # (Auto) Lymph # (Auto) Dunn # (Auto) VBG pH 7.43 H VBG pCO2 53.9 H VBG pO2 157.9 H VBG HCO3 34.8 H VBG Total CO2 36.5 H VBG O2 Saturation 98.9 H VBG Base Excess 10.5 H Chloride 95 L Carbon Dioxide 44 H* BUN 41 H Creatinine 1.20 H Estimated GFR 43 L Est GFR ( Amer) 53 L Glucose 114 H POC Glucose 139 H 125 H AST C-Reactive Protein NT-Pro-B Natriuret Pep Assessment and Plan *Assessment and plan (1) Acute respiratory failure with hypercapnia: Status: Acute Category: Medical Code(s): J96.02 - Acute respiratory failure with hypercapnia (2) Pneumonia: Status: Acute Qualifiers: Laterality: unspecified laterality Lung location: unspecified part of lung Pneumonia type: due to unspecified organism Qualified Code(s): J18.9 - Pneumonia, unspecified organism Category: Medical Code(s): J18.9 - Pneumonia, unspecified organism Plan Ms. thomas is a 79-year-old female with greater than [id number] smoking history last more greater than 25 years ago as per the patient at baseline using albuterol inhaler on as-needed basis, not using any oxygen supplementation, history of sleep apnea refused to use CPAP therapy, reported history of anxiety hypertension history of COPD hypercarbic respiratory failure presented today with worsening mentation and shortness of breath and pulmonary was called for further evaluation. Blood gas upon admission venous 7.29 and pCO2 of 80.4. Likely combination of mixed acute on chronic hypercarbic respiratory failure. Afebrile. Hemodynamically stable. Neutrophilic predominant leukocytosis upon admission, improved. CTA upon admission no pulmonary embolism. Left middle lobe and lower lobe minimal airspace disease. No significant emphysematous changes appreciated. On examination no respiratory distress. Plan: Continue oxygen supplementation on as-needed basis, weaned to room air this morning Trelegy 100 inhaler along with DuoNebs 4 times daily as needed Obtain records of prior sleep study and CPAP compliance report, patient admits she has used her CPAP therapy before however not using that at this point of time. CT chest no significant emphysematous changes. No recent prior PFTs available for review. Personal history of allergies on Singulair. Continue levofloxacin to complete a total of 5-day course along with prednisone 40 mg daily x 5 days # Thank you for involving pulmonary in this patient care. Will continue to follow
[2025-04-07 11:47] LABS: POC Glucose,Bedside 99 gm/dL (70-110)
--- NOTE | 2025-04-07 12:06 | EXP.DC.SUM ---
General Admission date:: 04/04/25 HPI HPI HPI: This is a 79-year-old morbid obese female who has a past medical history significant for anxiety, hypertension, type 2 diabetes, CO2 retention, and COPD who presents from [place] with a chief complaint of shortness of air and altered mental status. Due to the patient's symptoms, she was transition to [facility]. It was noted that patient's oxygen saturation at a seated rate was 60%. Patient presented here and her pCO2 was in the 80s with her pH 7.2. She was placed on BiPAP. Hospital medicine was consulted for further management. During my evaluation of the patient, she reports that she has been having shortness of air for at least the past 1 to 2 days. She reports having some increased swelling to her lower extremities. Patient is alert but not fully oriented. She is currently denying any chest pain, lightheadedness, dizziness, fever, chills, rigors, nausea, vomiting, or diarrhea. Pertinent vitals obtained in emergency room include a temperature of 100.1, CT scan of the chest revealed mild perihilar left lower lobe infiltrate concerning for acute pneumonitis/bronchitis and small area of parenchymal opacity in the lingula may represent gland atelectasis or pneumonia, white blood cell count is 11.4, red blood cell count was 3.27, hemoglobin was 9.8, hematocrit 33, neutrophils 82.3%, pH of 7.29, pCO2 of 80.4, pO2 of 51, pCO2 of 38.1, chloride of 97, carbon dioxide was greater than 40, BUN of 37, creatinine 1.20, GFR 43, blood glucose 122, AST of 53, and BNP of 3180. Hospital Course Hospital Course Hospital Course: Ruma Vargas is a 79-year-old female with a medical history significant for morbid obesity, IRINEO on CPAP nightly, COPD, HFpEF, mood disorder, anxiety/depression and recent fall of the head 3 weeks ago presented from [facility] due to altered mentation and shortness of breath. Found to have acute on chronic hypercapnic respiratory failure and initiated on BiPAP therapy in the setting of community-acquired pneumonia, and weaned to nasal cannula. Problems as outlined above: #Acute on chronic hypercapnic respiratory failure #Chronic hypoxic respiratory failure, 1 L #Community-acquired pneumonia #Acute metabolic encephalopathy #Recent fall on head #COPD exacerbation ? Presented from [facility] due to altered mental status, shortness of breath. CTA chest on admission suggestive of left sided pneumonia. ? Initial WBC 11.4, improved to 6.6 today. No signs of sepsis. ? Presented with confusion, childlike behavior, calling nursing staff mommy and disinhibition of thought. Apparently started 3 weeks ago after a fall in the head. Head CT on Admission did not show acute findings. ? Clinically improved with with treatment of pneumonia with IV levofloxacin and hypercapnia with BiPAP, DuoNebs, Pulmicort, steroids. Patient is alert and oriented, confusion and childlike disposition resolved at this time. ? Hypercapnic respiratory failure secondary to COPD exacerbation and pneumonia. ? Patient was diagnosed with COPD with PFTs in [place]. ? Patient most certainly improved with BiPAP for hypercapnia, has been on BiPAP nightly for COPD at [facility] and during hospital course. ? Will need to continue BiPAP nightly with settings of 16/8, respiratory rate 18, FiO2 30%. This is predominantly for COPD and not IRINEO. ? Repeat ABGs showed resolution of acute hypercapnia, continues to show compensated chronic hypercapnia. Follow-up ABG pending at this time. ? Discharged with levofloxacin 750 mg for 3 more days, prednisone 40 mg for 3 more days, Trelegy 100 mg, and DuoNebs as needed 4 times daily. ? Patient is up at [place] and did on 04/06/2025. Patient and daughter prefer to go home, will do outpatient physical therapy. Not interested in home health. Medically stable to be discharged back home, will follow-up with pulmonology within 2 weeks. ? Discontinue methocarbamol, propranolol, Theophylline, meclizine due to risk of sedation and risk of hypercapnia, and decrease pregabalin to 75 mg twice daily. #HFpEF exacerbation #RV failure ? Presented with shortness of breath, lower extremity edema, BNP elevated to 3180. ? ECHO on 04/07/2025 revealed preserved ejection fraction, moderate reduction in RV function. ? Continue Lasix 40 mg daily, Farxiga 10 mg, started spironolactone 25 mg. #Hypertension ? Hold home lisinopril, amlodipine due to stable pressures. #Mood disorder ? Continue home paroxetine 40 mg, BuSpar 15 mg. #Dementia ? Continue home memantine 5 mg twice daily. #Peripheral neuropathy ? Reduce home pregabalin to 75 mg twice daily due concern of oversedation and risk of hypercapnia. #GERD ? Continue home PPI. Total time spent on discharge: 45 minutes on chart review, counseling, documentation, and direct care with patient. Exam Data for Last 24 hours Vital signs and Labs for Last 24 Hours: Temp Pulse Resp BP Pulse Ox O2 Del Method O2 Flow Rate 97.8 F 64 16 150/65 H 95 Nasal Cannula 2 04/07/25 08:00 04/07/25 08:00 04/07/25 08:00 04/07/25 08:00 04/07/25 08:00 04/07/25 08:00 04/07/25 08:00 FiO2 30 04/07/25 02:09 Laboratory Results - last 24 hr 04/06/25 12:14: POC Glucose 120 H 04/06/25 15:45: POC Glucose 139 H 04/06/25 20:26: POC Glucose 139 H 04/07/25 05:26: WBC 6.6, RBC 3.06 L, Hgb 9.1 L, Hct 29.8 L, MCV 97.4, MCH 29.7, MCHC 30.5 L, RDW 15.3, Plt Count 177, MPV 9.8, Neut % (Auto) 74.1, Lymph % (Auto) 15.5, Mora % (Auto) 9.1, Eos % (Auto) 0.5, Baso % (Auto) 0.2, Neut # (Auto) 4.9, Lymph # (Auto) 1.0, Mora # (Auto) 0.6, Eos # (Auto) 0.0, Baso # (Auto) 0.0, VBG pH 7.43 H, VBG pCO2 53.9 H, VBG pO2 157.9 H, VBG HCO3 34.8 H, VBG Total CO2 36.5 H, VBG O2 Saturation 98.9 H, VBG Base Excess 10.5 H, VBG Lactic Acid 0.9, Sodium 140, Potassium 4.4, Chloride 95 L, Carbon Dioxide 44 H*, Anion Gap 9.4, BUN 41 H, Creatinine 1.20 H, Estimated Creat Clear 33, Estimated GFR 43 L, Est GFR ( Amer) 53 L, Glucose 114 H, Calcium 8.6 04/07/25 06:14: POC Glucose 125 H 04/07/25 11:37: POC Glucose 99 I & O for Last 24 hours: Intake & Output 04/04/25 04/05/25 04/06/25 04/07/25 23:59 23:59 23:59 23:59 Intake Total 660 / 960 760 / 760 540 / 540 Output Total 950 / 950 1800 / 1800 400 / 400 Balance -290 / 10 -1040 / -1040 140 / 140 Weight 117.934 kg 123.559 kg 122.787 kg 120.293 kg Microbiology Reports for the Last 24 Hours: Microbiology 04/05/25 03:30 Nose MRSA Culture - Final Negative 04/04/25 21:50 Urine,Clean Catch Urine Culture - Final Multiple organisms, suggests contamination. 04/05/25 06:30 Blood Blood Culture - Preliminary NO GROWTH AFTER 48 HOURS 04/05/25 06:30 Blood Blood Culture - Preliminary NO GROWTH AFTER 48 HOURS Constitutional Constitutional: no acute distress, obese and chronically ill appearing *Routine HEENT Exam Head: Present normocephalic Eye: Present EOMI and PERRL ENT: Present mucous membranes moist *Routine Neck Exam Neck: Present supple; Absent lymphadenopathy *Routine Respiratory Exam Respiratory: Present CTA bilaterally *Routine Cardiovascular Exam Cardiovascular: Present RRR *Routine Abdominal Exam Abdominal: Present soft and normoactive bowel sounds; Absent tenderness *Routine Extremities Exam Extremities: Absent cyanosis, clubbing or edema *Routine Skin Exam Skin: Present warm; Absent rash *Routine Neurological Exam Neurological: Present alert and oriented X3 Results Data Completed and Pending Labs on day of discharge: Labs from last 24 hours 04/07/25 04/07/25 04/07/25 11:37 06:14 05:26 WBC 6.6 RBC 3.06 L Hgb 9.1 L Hct 29.8 L MCV 97.4 MCH 29.7 MCHC 30.5 L RDW 15.3 Plt Count 177 MPV 9.8 Neut % (Auto) 74.1 Lymph % (Auto) 15.5 Mora % (Auto) 9.1 Eos % (Auto) 0.5 Baso % (Auto) 0.2 Neut # (Auto) 4.9 Lymph # (Auto) 1.0 Mora # (Auto) 0.6 Eos # (Auto) 0.0 Baso # (Auto) 0.0 VBG pH 7.43 H VBG pCO2 53.9 H VBG pO2 157.9 H VBG HCO3 34.8 H VBG Total CO2 36.5 H VBG O2 Saturation 98.9 H VBG Base Excess 10.5 H VBG Lactic Acid 0.9 Sodium 140 Potassium 4.4 Chloride 95 L Carbon Dioxide 44 H* Anion Gap 9.4 BUN 41 H Creatinine 1.20 H Estimated Creat Clear 33 Estimated GFR 43 L Est GFR ( Amer) 53 L Glucose 114 H POC Glucose 99 125 H Calcium 8.6 04/06/25 04/06/25 04/06/25 20:26 15:45 12:14 WBC RBC Hgb Hct MCV MCH MCHC RDW Plt Count MPV Neut % (Auto) Lymph % (Auto) Mora % (Auto) Eos % (Auto) Baso % (Auto) Neut # (Auto) Lymph # (Auto) Mora # (Auto) Eos # (Auto) Baso # (Auto) VBG pH VBG pCO2 VBG pO2 VBG HCO3 VBG Total CO2 VBG O2 Saturation VBG Base Excess VBG Lactic Acid Sodium Potassium Chloride Carbon Dioxide Anion Gap BUN Creatinine Estimated Creat Clear Estimated GFR Est GFR ( Amer) Glucose POC Glucose 139 H 139 H 120 H Calcium Preliminary micro results at discharge 04/05/25 06:30 Blood Culture - Preliminary Blood NO GROWTH AFTER 48 HOURS 04/05/25 06:30 Blood Culture - Preliminary Blood NO GROWTH AFTER 48 HOURS DS: Diagnosis Discharge Diagnosis (1) Morbid obesity: Status: Acute Code(s): E66.01 - Morbid (severe) obesity due to excess calories (2) Acute respiratory failure with hypercapnia: Status: Acute Code(s): J96.02 - Acute respiratory failure with hypercapnia Meds Home Medications and Allergies Home Medications ?Medication ?Instructions ?Recorded ?Confirmed ?Type lidocaine 5 % topical patch 1 patch topical DAILY 04/04/25 04/05/25 History memantine 5 mg tablet 5 mg PO BID 04/04/25 04/05/25 History metformin 500 mg tablet 500 mg PO DAILY 04/04/25 04/05/25 History ondansetron 4 mg disintegrating 4 mg PO Q6HP PRN Nausea And 04/04/25 04/05/25 History tablet Vomiting pantoprazole 40 mg tablet,delayed 40 mg PO BID 04/04/25 04/05/25 History release paroxetine HCl 40 mg tablet 40 mg PO DAILY 04/04/25 04/05/25 History acetaminophen 500 mg tablet 1,000 mg PO Q8HP PRN Mild Pain 04/05/25 04/05/25 History (Scale Score 1-4) atorvastatin 80 mg tablet 80 mg PO HS 04/05/25 04/05/25 History buspirone 7.5 mg tablet 15 mg PO DAILY 04/05/25 04/05/25 History clopidogrel 75 mg tablet 75 mg PO DAILY 04/05/25 04/05/25 History dapagliflozin propanediol 10 mg 10 mg PO DAILY 04/05/25 04/05/25 History tablet (Farxiga) furosemide 40 mg tablet 40 mg PO DAILY 04/05/25 04/05/25 History oxybutynin chloride 10 mg 10 mg PO DAILY 04/05/25 04/05/25 History tablet,extended release 24 hr polyethylene glycol 3350 17 gram 17 g PO DAILYP PRN Constipation 04/05/25 04/05/25 History oral powder packet (Miralax) fluticasone fur. 100 mcg-umeclid 1 inh inhalation DAILY 30 days #0 04/07/25 Rx 62.5 mcg-vilant 25 mcg ea inhalat.powder (Trelegy Ellipta) ipratropium 0.5 mg-albuterol 3 mg 3 ml inhalation Q6HP PRN Shortness 04/07/25 Rx (2.5 mg base)/3 mL nebulization Of Breath 30 days #180 mL soln levofloxacin 750 mg tablet 750 mg PO Q48H #2 tabs 04/07/25 Rx prednisone 20 mg tablet 40 mg (2 x 20 mg) PO DAILY 3 days 04/07/25 Rx #6 tabs pregabalin 25 mg capsule (Lyrica) 75 mg (3 x 25 mg) PO BID 30 days 04/07/25 Rx #180 caps spironolactone 25 mg tablet 25 mg PO BID #30 tabs 04/07/25 Rx New Prescriptions to Start Prescriptions: ipratropium-albuterol Marcos Lynn levofloxacin Marcos Lynn prednisone Marcos Lynn pregabalin [Lyrica] Shane,Marcos spironolactone Marcos Lynn Allergies Allergy/AdvReac Type Severity Reaction Status Date / Time No Known Allergies Allergy Verified 04/05/25 01:43 Discharge Plan Disposition Patient Disposition: Home, Self-Care Condition: Fair Discharge Order Discharge Orders: Discharge Order (Routine); Ordered 04/07/25 Ordered By: Marcos Lynn Follow up Plan Prescriptions/Medication Reconciliation: New ipratropium-albuterol 0.5 mg-3 mg(2.5 mg base)/3 mL Solution For Nebulization 3 ml inhalation Q6HP PRN (Reason: Shortness Of Breath) 30 Days Qty: 180 0RF prednisone 20 mg Tablet 40 mg PO DAILY 3 Days Qty: 6 0RF pregabalin [Lyrica] 25 mg Capsule 75 mg PO BID 30 Days Qty: 180 0RF Trelegy Ellipta 100-62.5-25 mcg Blister With Device 1 inh inhalation DAILY 30 Days Qty: 0 0RF spironolactone 25 mg tablet 25 mg PO BID Qty: 30 0RF levofloxacin 750 mg tablet 750 mg PO Q48H Qty: 2 0RF Continued metformin 500 mg tablet 500 mg PO DAILY pantoprazole 40 mg tablet,delayed release (DR/EC) 40 mg PO BID lidocaine 5 % adhesive patch,medicated 1 patch topical DAILY paroxetine HCl 40 mg tablet 40 mg PO DAILY ondansetron 4 mg tablet,disintegrating 4 mg PO Q6HP PRN (Reason: Nausea And Vomiting) memantine 5 mg tablet 5 mg PO BID furosemide 40 mg tablet 40 mg PO DAILY atorvastatin 80 mg tablet 80 mg PO HS polyethylene glycol 3350 [Miralax] 17 gram Powder In Packet 17 g PO DAILYP PRN (Reason: Constipation) oxybutynin chloride 10 mg Tablet Extended Release 24hr 10 mg PO DAILY clopidogrel 75 mg tablet 75 mg PO DAILY acetaminophen 500 mg Tablet 1,000 mg PO Q8HP PRN (Reason: Mild Pain (Scale Score 1-4)) buspirone 7.5 mg tablet 15 mg PO DAILY dapagliflozin propanediol [Farxiga] 10 mg tablet 10 mg PO DAILY Discontinued methocarbamol 500 mg tablet 500 mg PO Q8HP PRN (Reason: Muscle Pain) lisinopril 20 mg tablet 20 mg PO DAILY propranolol 60 mg capsule,extended release 24 hr 60 mg PO DAILY theophylline 300 mg tablet extended release 12 hr 300 mg PO DAILY meclizine 25 mg Tablet 25 mg PO TIDP PRN (Reason: Dizziness) pregabalin [Lyrica] 150 mg capsule 150 mg PO BID Patient Comments: 1 Capsule Oral 2 Times Daily Indication: neuropathy albuterol sulfate 2.5 mg /3 mL (0.083 %) Solution For Nebulization 2.5 mg INHALATION TID amlodipine 5 mg tablet 5 mg PO DAILY budesonide 0.5 mg/2 mL Suspension For Nebulization 0.5 mg INHALATION DAILY formoterol fumarate 20 mcg/2 mL solution for nebulization 2 ml INHALATION BID Problem Reconciliation Problems Reviewed?: Yes Patient Discharge Instructions Patient Instructions: DI for Chronic Obstructive Pulmonary Disease, DI for Pneumonia in Adults, DI for Respiratory Failure, Stop Light Pneumonia, Stop Light COPD Print Language: Russian Providers Primary Care Provider: Provider,Referral Admit Provider: Marcos Lynn Attending Provider: Marcos Lynn
--- NOTE | 2025-04-07 13:17 | PC.NURSE ---
Room air sat=86%, placed on 1L NC and sats are 94%
--- NOTE | 2025-04-07 13:33 | XR_ITS ---
FINAL REPORT CLINICAL HISTORY: fall, low back pain AP LUMBAR SPINE ONLY COMPARISON: None FINDINGS: A single AP view of the lumbar spine was obtained. There is no gross fracture. Vertebrae are normal in height. Alignment is normal on this limited AP view. IMPRESSION: Grossly unremarkable limited exam of the lumbar spine. Reviewed, Interpreted and Dictated by Chris Hall MD Transcribed by Ute Knowles Authenticated and [facility]
--- NOTE | 2025-04-07 13:33 | XR_ITS ---
FINAL REPORT CLINICAL HISTORY: Fall, low back, pelvix pain COMPARISON: None FINDINGS: SINGLE VIEW PELVIS: A single view of the pelvis was obtained. There is no acute fracture or dislocation. Vizualized joint spaces are normally aligned. Soft tissues are unremarkable. IMPRESSION: No acute bony abnormality. Reviewed, Interpreted and Dictated by Chris Hall MD Transcribed by Ute Knowles Authenticated and [facility]
--- NOTE | 2025-04-08 05:12 | PC.NURSE ---
Fwd CX results to hospitalist.
--- NOTE | 2025-04-08 10:46 | SW/DCPLANNER ---
Spoke with patient's daughter on the phone. Patient's daughter stated that patient is doing well. Patient's daughter stated that they are aware of her mom's upcoming appointments. Patient's daughter stated that they were able to crab picker her mom's medicine from the pharmacy. Patient's daughter stated that they have no concerns or questions at this time. Jarvis Caceres
[2025-04-08 15:05] LABS: POC Glucose,Bedside 118 gm/dL (70-110)
== END 2025-04-07 19:31 | disposition home or self-care (01) | DRG 193 ==
LOC: ER 22:10 → ICU 04-05 00:04 → 2ND 04-05 20:20
PROVIDERS: Internal Medicine; Nurse Practitioner Family; Admitting Provider Student in an Organized Health Care Education/Training Program; Emergency Provider Student in an Organized Health Care Education/Training Program; Visit Provider Student in an Organized Health Care Education/Training Program
DX: J15.9 Unspecified bacterial pneumonia (principal); G93.41 Metabolic encephalopathy; I50.33 Acute on chronic diastolic (congestive) heart failure; J96.22 Acute and chronic respiratory failure with hypercapnia; J96.21 Acute and chronic respiratory failure with hypoxia; J44.1 Chronic obstructive pulmonary disease with (acute) exacerbation; J44.0 Chronic obstructive pulmonary disease with (acute) lower respiratory infection; F03.94 Unspecified dementia, unspecified severity, with anxiety; F03.93 Unspecified dementia, unspecified severity, with mood disturbance; Z68.41 Body mass index [BMI] 40.0-44.9, adult; E66.01 Morbid (severe) obesity due to excess calories; G47.33 Obstructive sleep apnea (adult) (pediatric); I11.0 Hypertensive heart disease with heart failure; K21.9 Gastro-esophageal reflux disease without esophagitis; E11.42 Type 2 diabetes mellitus with diabetic polyneuropathy; Z87.891 Personal history of nicotine dependence; Z99.81 Dependence on supplemental oxygen; Z79.84 Long term (current) use of oral hypoglycemic drugs; Z91.81 History of falling
CPT/HCPCS: 0223U; 36415; 36600; 70450; 71045; 71275; 72020; 72170; 80048; 80053; 81001; 82607; 82746; 82803; 82962; 83735; 83880; 84145; 84439; 84443; 84484; 85025; 86140; 87040; 87081; 87086; 89220; 93005; 93306; 94640; 94660; 94761; 97163; 97166; 97530; 99285; J0456; J0696; J1650; J1938; J1956; J2250; J2405; J2919; J3360; J7050